=== PATIENT | female | born 1990 | race African-American/Black ===

== ENCOUNTER 2016-04-19 07:29 | Emergency (ER) | payer SELFPAY ==
--- NOTE | 2016-04-19 09:14 | ER Document Report ---
ED General - General Chief Complaint: Cough Stated Complaint: WEAKNESS Mode of Arrival: Ambulatory Information source: Patient Notes: 25-year-old female presents with complaints of body aches and fevers. Patient notes symptoms have been ongoing now for 2 days. Patient denies any nausea vomiting notes multiple coworkers have flu TRAVEL OUTSIDE OF THE [place] IN LAST 30 DAYS: No - HPI Onset: Other - 2-3 day duration Onset/Duration: Persistent Quality of pain: Achy Severity: Mild Pain Level: 1 Associated symptoms: Body/muscle aches, Nonproductive cough, Fever Exacerbated by: Denies Relieved by: Denies Similar symptoms previously: No Recently seen / treated by doctor: No - Related Data Allergies/Adverse Reactions: pineapple [Pineapple] Allergy (Verified 04/19/16 07:36) Past Medical History - Social History Smoking Status: Never Smoker Cigarette use (# per day): No Chew tobacco use (# tins/day): No Smoking Education Provided: No Frequency of alcohol use: None Drug Abuse: None Family History: Reviewed & Not Pertinent Patient has suicidal ideation: No Patient has homicidal ideation: No Pulmonary Medical History: Reports: Hx Bronchitis Neurological Medical History: Reports: Hx Migraine Renal/ Medical History: Denies: Hx Peritoneal Dialysis Psychiatric Medical History: Reports: Hx Depression - Immunizations Hx Diphtheria, Pertussis, Tetanus Vaccination: Yes Review of Systems - Review of Systems Notes: REVIEW OF SYSTEMS: CONSTITUTIONAL : Admits to fevers EENT: Denies eye, ear, throat, or mouth pain or symptoms. Denies nasal or sinus congestion or discharge. Denies throat, tongue, or mouth swelling or difficulty swallowing. CARDIOVASCULAR: Denies chest pain. Denies palpitations or racing or irregular heart beat. Denies ankle edema. RESPIRATORY: Denies cough, cold, or chest congestion. Denies shortness of breath, difficulty breathing, or wheezing. GASTROINTESTINAL: Denies abdominal pain or distention. Denies nausea, vomiting , or diarrhea. Denies blood in vomitus, stools, or per rectum. Denies black, tarry stools. Denies constipation. GENITOURINARY: Denies difficulty urinating, painful urination, burning, frequency, blood in urine, or discharge. FEMALE GENITOURINARY: Denies vaginal bleeding, heavy or abnormal periods, irregular periods. Denies vaginal discharge or odor. MUSCULOSKELETAL: Admits to body aches SKIN: Denies rash, lesions or sores. HEMATOLOGIC : Denies easy bruising or bleeding. LYMPHATIC: Denies swollen, enlarged glands. NEUROLOGICAL: Denies confusion or altered mental status. Denies passing out or loss of consciousness. Denies dizziness or lightheadedness. Denies headache. Denies weakness or paralysis or loss of use of either side. Denies problems with gait or speech. Denies sensory loss, numbness, or tingling. Denies seizures. PSYCHIATRIC: Denies anxiety or stress. Denies depression, suicidal ideation, or homicidal ideation. ALL OTHER SYSTEMS REVIEWED AND NEGATIVE. Dictation was performed using itzat voice recognition software PHYSICAL EXAMINATION: GENERAL: Well-appearing, well-nourished and in no acute distress. HEAD: Atraumatic, normocephalic. EYES: Pupils equal round and reactive to light, extraocular movements intact, conjunctiva are normal. ENT: Nares patent, oropharynx clear without exudates. Moist mucous membranes. NECK: Normal range of motion, supple without lymphadenopathy LUNGS: Breath sounds clear to auscultation bilaterally and equal. No wheezes rales or rhonchi. HEART: Regular rate and rhythm without murmurs ABDOMEN: Soft, nontender, nondistended abdomen. No guarding, no rebound. No masses appreciated. Female : deferred Musculoskeletal: Normal range of motion, no pitting or edema. No cyanosis. NEUROLOGICAL: Cranial nerves grossly intact. Normal speech, normal gait. Normal sensory, motor exams PSYCH: Normal mood, normal affect. SKIN: Warm, Dry, normal turgor, no rashes or lesions noted. Physical Exam - Vital signs Vitals: Temp Pulse Resp BP Pulse Ox 98.0 F 75 18 105/66 98 04/19/16 07:33 04/19/16 07:33 04/19/16 07:33 04/19/16 07:33 04/19/16 07:33 Course - Re-evaluation Re-evalutation: 04/19/16 09:16 Physical examination notes no significant abnormality, patient's otherwise stable at this time. Lab work pending 04/19/16 09:48 Influenza was negative, patient has viral syndromes otherwise stable for discharge After performing a Medical Screening Examination, I estimate there is LOW risk for ACUTE CORONARY SYNDROME, RESPIRATORY FAILURE, SEPSIS OR MENINGITIS, thus I consider the discharge disposition reasonable. The patient and I have discussed the diagnosis and risks, and we agree with discharging home with close follow- up. We also discussed returning to the Emergency Department immediately if new or worsening symptoms occur. We have discussed the symptoms which are most concerning (e.g., changing or worsening pain, trouble swallowing or breathing, neck stiffness, fever) that necessitate immediate return. - Vital Signs Vital signs: Temp Pulse Resp BP Pulse Ox 98.0 F 75 18 105/66 98 04/19/16 07:33 04/19/16 07:33 04/19/16 07:33 04/19/16 07:33 04/19/16 07:33 Discharge - Discharge Clinical Impression: Viral upper respiratory infection, Body aches Condition: Stable Disposition: HOME, SELF-CARE Instructions: Upper Respiratory Illness ([facility]) Additional Instructions: Follow up with your physician tomorrow for further care or return to the ED IMMEDIATELY if symptoms worsen or new concerns occur Forms: Return to Work
[2016-04-19 10:21] VITALS: BP 106/65
== END 2016-04-19 10:20 | disposition home or self-care (01) ==
LOC: ER 07:29
DX: J06.9 Acute upper respiratory infection, unspecified (principal); B97.89 Other viral agents as the cause of diseases classified elsewhere; M79.1 Myalgia; R53.1 Weakness; R50.9 Fever, unspecified
CPT/HCPCS: 87804; 99283

== ENCOUNTER 2016-05-14 20:24 | Emergency (ER) | payer SELFPAY ==
[2016-05-14] MEDS ORDERED: IBUPROFEN 600 MG TABLET PO ONE (21:29)
--- NOTE | 2016-05-14 21:29 | ER Document Report ---
ED Medical Screen (RME) - General Chief Complaint: Ankle Injury Stated Complaint: LEFT ANKLE PAIN Time seen by provider: 21:27 Mode of Arrival: Ambulatory Information source: Patient Notes: 25-year-old female presents to ED for left ankle pain since yesterday. She states it keeps popping worse when she walks. States she almost fell off the porch on Friday. Last menstrual period 04/22/2016 I have greeted and performed a rapid initial assessment of this patient. A comprehensive ED assessment and evaluation of the patient, analysis of test results and completion of medical decision making process will be conducted by an additional ED providers. TRAVEL OUTSIDE OF THE [place] IN LAST 30 DAYS: No - Related Data Allergies/Adverse Reactions: pineapple [Pineapple] Allergy (Verified 04/19/16 07:36) Past Medical History - Social History Family history: None Pulmonary Medical History: Reports: Hx Bronchitis Neurological Medical History: Reports: Hx Migraine Renal/ Medical History: Denies: Hx Peritoneal Dialysis Psychiatric Medical History: Reports: Hx Depression - Immunizations Hx Diphtheria, Pertussis, Tetanus Vaccination: Yes
--- NOTE | 2016-05-15 02:15 | ER Document Report ---
ED Extremity Problem, Lower - General Chief Complaint: Ankle Injury Stated Complaint: LEFT ANKLE PAIN Mode of Arrival: Ambulatory Information source: Patient Notes: 25 y/o F presents to ED c/o L ankle pain. Pt reports twisted her ankle 3 days ago during mechanical trip and fall down the last 2 steps of stairs. Reports did not have obvious injury intitally after fall but over the last 2 days has had persistent pain worse with movement and ambulation and states feels popping sensation when ambulating. Denies numbness, tingling, or color changes. Denies striking head or loc during fall. TRAVEL OUTSIDE OF THE [place] IN LAST 30 DAYS: No - HPI Patient complains to provider of: Pain Location: Ankle Onset/Duration: Gradual Quality of pain: Achy Severity: Moderate Pain Level: 3 Context: Fell, Twisted Recent injury: Possibly Associated symptoms: Painful ambulation Exacerbated by: Movement, Walking Relieved by: Elevation, Rest - Related Data Allergies/Adverse Reactions: pineapple [Pineapple] Allergy (Verified 04/19/16 07:36) Past Medical History - General Information source: Patient - Social History Smoking Status: Never Smoker Frequency of alcohol use: None Drug Abuse: None Lives with: Family Family History: Reviewed & Not Pertinent Pulmonary Medical History: Reports: Hx Bronchitis Neurological Medical History: Reports: Hx Migraine Renal/ Medical History: Denies: Hx Peritoneal Dialysis Psychiatric Medical History: Reports: Hx Depression Surgical Hx: Negative - Immunizations Hx Diphtheria, Pertussis, Tetanus Vaccination: Yes Review of Systems - Review of Systems Constitutional: No symptoms reported EENT: No symptoms reported Cardiovascular: No symptoms reported Respiratory: No symptoms reported Gastrointestinal: No symptoms reported Genitourinary: No symptoms reported Female Genitourinary: No symptoms reported Musculoskeletal: See HPI Skin: No symptoms reported Hematologic/Lymphatic: No symptoms reported Neurological/Psychological: No symptoms reported -: Yes All other systems reviewed and negative Physical Exam - Vital signs Vitals: Temp Pulse Resp BP Pulse Ox 98.2 F 78 15 119/73 99 05/15/16 02:28 05/15/16 02:28 05/15/16 02:28 05/15/16 02:28 05/15/16 02:28 - General General appearance: Appears well, Alert In distress: None - Respiratory Respiratory status: No respiratory distress Chest status: Nontender Breath sounds: Normal Chest palpation: Normal - Cardiovascular Rhythm: Regular Heart sounds: Normal auscultation Murmur: No Pulses: Normal: Radial, Posterior tibial, Dorsalis pedis Normal capillary refill: Yes - Back Back: Normal, Nontender - Extremities General upper extremity: Normal inspection, Nontender, Normal color, Normal ROM , Normal strength, Normal temperature. No: Tender, Edema General lower extremity: Normal inspection, Nontender, Normal color, Normal ROM , Normal strength, Normal temperature, Normal weight bearing. No: Tender, Edema , Benjamin's sign Hip: Normal, Nontender Thigh: Normal, Nontender Knee: Normal, Nontender Calf: Normal, Nontender Ankle: Tender - Mild tenderness with palpation to anterior and medial aspect of left ankle. Full but painful active, passive, and against resistance range of motion. Motor and neurovascular function intact with immediate capillary refill , palpable pedal pulses, and intact sensation.. No: Normal, Nontender, Abrasion , Deformity, Ecchymosis, Edema, Instability, Laceration, Limited ROM, Positive St's test, Unable to bear weight, Other Foot: Normal, Nontender - Neurological Neuro grossly intact: Yes Cognition: Normal Orientation: AAOx4 Bowers Coma Scale Eye Opening: Spontaneous Bowers Coma Scale Verbal: Oriented Bowers Coma Scale Motor: Obeys Commands Bowers Coma Scale Total: 15 Speech: Normal Motor strength normal: LUE, RUE, LLE, RLE Sensory: Normal - Skin Skin Temperature: Warm Skin Moisture: Dry Skin Color: Normal Course - Re-evaluation Re-evalutation: 05/15/16 02:21 Patient hemodynamically stable, in no distress. X-rays negative for osseous injury. Ankle stirrup splint placed. Patient appears stable for discharge and agrees with home care, follow-up with PCP, and ED return precautions. - Vital Signs Vital signs: Temp Pulse Resp BP Pulse Ox 98.2 F 78 15 119/73 99 05/15/16 02:28 05/15/16 02:28 05/15/16 02:28 05/15/16 02:28 05/15/16 02:28 - Diagnostic Test Radiology reviewed: Image reviewed, Reports reviewed Procedures - Immobilization Left Ankle Time completed: 02:22 Pre-Proc Neuro Vasc Exam: Normal Immobilizer type: Ankle stirrup Performed by: RN, PCT Post-Proc Neuro Vasc Exam: Normal Alignment checked and good: Yes Discharge - Discharge Clinical Impression: Left ankle sprain Qualifiers: Encounter type: initial encounter Involved ligament of ankle: unspecified ligament Qualified Code(s): S93.402A - Sprain of unspecified ligament of left ankle, initial encounter Condition: Stable Disposition: HOME, SELF-CARE Additional Instructions: SPRAINED ANKLE: Your sprained ankle results from stretching or tearing of the ligaments which support the ankle. This usually results from twisting the foot inward and under. The ligaments will require time and protection in order to heal properly. Many ankle sprains are quite disabling, and should be taken seriously. The usual treatment for an ankle sprain is cold packs; protection with tape , splints, or wraps; elevation; and staying off the ankle for at least a day. As the ankle improves, you can walk IF it's not painful to bear weight. Sports are best postponed until healing is complete. More serious sprains usually require strengthening exercises after early healing. Your physician has assessed the seriousness of the ligament injury to your ankle. However, the treatment may change, depending on how your ankle progresses. If further exams were recommended, it is important that you follow through. Call the doctor if your foot becomes numb, painful, or severely swollen. ANKLE STIRRUP SPLINT: You are to use an ankle brace called a stirrup splint. This type of brace allows you to place greater stresses on the ankle without risk of re-injury, and is often used for more severe ankle injuries such as avulsion fractures and ligament ruptures. The splint can be worn over a sock or tape. For proper support, wear the splint with a shoe over it. It's important that the splint fit properly. Adjust the heel tension, if needed. If your splint has air bladders, peel back the bottom of each air bladder, then move the Velcro attachment of the heel strap up or down. Air bladder pressure can be adjusted by pulling up the valve at the top, threading the air tube down into the main bladder, then blowing air into the bladder or squeezing it out. The two sides of the stirrup can be moved forward or back on your ankle by changing the attachment of the main straps. If you are unable to use the ankle comfortably in the splint, return for re -evaluation. ICE & ELEVATION: Apply ice packs frequently against the painful area. Many different schedules are recommended, such as "20 minutes on, 20 minutes off" or "one hour ice, two hours rest." If you need to work, you may need to go longer between ice treatments. You should plan to have the area ice packed AT LEAST one- fourth of the time. The ice should be applied over the wrap, tape, or splint, or over a layer of cloth -- not directly against the skin. Some ice bags have a built-in cloth and can be put directly on the skin. Your injured part should be elevated as much as possible over the next 48 hours. Try to keep the injury above the level of the heart. Avoid use of the injured area. Elevation and rest will decrease the swelling. Anti-Inflammatory Medication You have received a prescription for an antiinflammatory agent. This is an excellent, safe drug for pain control. In addition, it has potent antiinflammatory effects which are beneficial, especially in the treatment of injuries, arthritis, or tendonitis. It's best to take this medicine with food. Persons with ulcer disease or allergy to aspirin should notify their physician of this before taking this drug. Take the medication exactly as prescribed. Don't take additional doses unless instructed to do so by your doctor. If you develop wheezing, shortness of breath, hives, faintness, stomach pain, vomiting, or dark black stools, return for re-evaluation at once. FOLLOW-UP CARE: Follow-up with your primary care provider this week. Return to the emergency department for any worsening symptoms or concerns. Prescriptions: Naproxen 500 mg PO BIDP PRN #10 tablet PRN Reason: Forms: Return to Work
[2016-05-15 02:29] VITALS: BP 119/73
== END 2016-05-15 02:29 | disposition home or self-care (01) ==
LOC: ER 20:24
PROC: 2W3FX1Z Immobilization of Left Hand using Splint (ICD-10-PCS; principal; 2016-05-14)
DX: S93.402A Sprain of unspecified ligament of left ankle, initial encounter (principal); M25.572 Pain in left ankle and joints of left foot; X50.1XXA Overexertion from prolonged static or awkward postures, initial encounter
CPT/HCPCS: 99283; 73610; 29515; L1902

== ENCOUNTER 2016-05-19 19:35 | Emergency (ER) | payer SELFPAY ==
[2016-05-19 20:05] VITALS: BP 122/67
--- NOTE | 2016-05-19 21:12 | ER Document Report ---
HPI - HPI Patient complains to provider of: ankle pain Pain Level: 3 Context: Patient is a 25-year-old female presents emergency Department complaining of ankle pain. She was evaluated here on May 14 and diagnosed with a left ankle sprain sent home with ankle brace as well as encourage for Rice management. Patient states that she's been on her feet constantly for work and Motrin is not managing her pain well enough when she is at work. Otherwise she denies any worsening swelling or bruising. She is able to bear weight and gait with a limp. ROS also positive for nausea. Patient states that her last menstrual period was at the end of March. - REPRODUCTIVE LMP: 04/22/16 Reproductive: DENIES: : - DERM Skin Color: Normal, [place] Past Medical History - Social History Smoking Status: Unknown if Ever Smoked Family History: Reviewed & Not Pertinent Patient has suicidal ideation: No Patient has homicidal ideation: No Pulmonary Medical History: Reports: Hx Bronchitis Neurological Medical History: Reports: Hx Migraine Renal/ Medical History: Denies: Hx Peritoneal Dialysis Psychiatric Medical History: Reports: Hx Depression - Immunizations Hx Diphtheria, Pertussis, Tetanus Vaccination: Yes Vertical Provider Document - CONSTITUTIONAL Agree With Documented VS: Yes Exam Limitations: No Limitations General Appearance: WD/WN, No Apparent Distress - INFECTION CONTROL TRAVEL OUTSIDE OF THE [place] IN LAST 30 DAYS: No - RESPIRATORY O2 Sat by Pulse Oximetry: 100 - GI/ABDOMEN Gastrointestinal: Abdomen Soft, Abdomen Non-Tender, No Organomegaly, Normal Bowel Sounds - MUSCULOSKELETAL/EXTREMETIES Musculoskeletal/Extremeties: MAEW, FROM, Tender - Concern for high ankle sprain , No Edema. negative: Eccymosis - NEURO Level of Consciousness: Awake, Alert, Appropriate Motor/Sensory: No Motor Deficit, No Sensory Deficit - DERM Integumentary: Warm, Dry, No Rash Course - Re-evaluation Re-evalutation: 05/19/16 22:10 patient is a 25-year-old female who presents emergency department for reevaluation of her right ankle. We have imaging of the ankle does not reveal any fracture or dislocation. Educated patient that due to the nature of her work that her ankle will take longer to heal. Patient expressed understanding. - Vital Signs Vital signs: Temp Pulse Resp BP Pulse Ox 98.1 F 82 18 122/67 100 05/19/16 20:00 05/19/16 20:00 05/19/16 20:00 05/19/16 20:00 05/19/16 20:00 - Diagnostic Test Radiology reviewed: Image reviewed, Reports reviewed Discharge - Discharge Clinical Impression: Nausea Left ankle sprain Qualifiers: Encounter type: initial encounter Involved ligament of ankle: unspecified ligament Qualified Code(s): S93.402A - Sprain of unspecified ligament of left ankle, initial encounter Condition: Good Disposition: HOME, SELF-CARE Additional Instructions: Continued to use ice, compression and elevation. Please continue taking Motrin as he Then. Only take the tramadol as needed for breakthrough pain. Prescriptions: Ondansetron HCl [Zofran] 4 mg PO Q8HP PRN #10 tablet PRN Reason: Tramadol HCl 50 mg PO Q8HP PRN #10 tablet PRN Reason: Referrals: ELBA BERNSTEIN MD [[facility]AFF] - Follow up as needed MARTHA SHANKAR MD [NO LOCAL MD] - Follow up as needed
[2016-05-19] MEDS ORDERED: IBUPROFEN 800 MG TABLET PO ONE (21:50)
[2016-05-19] MEDS ORDERED: ONDANSETRON 4 MG TAB.RAPDIS PO ONE (21:50)
== END 2016-05-19 22:02 | disposition home or self-care (01) ==
LOC: ER 19:35
DX: S93.402A Sprain of unspecified ligament of left ankle, initial encounter (principal); R11.0 Nausea; M25.572 Pain in left ankle and joints of left foot; X58.XXXA Exposure to other specified factors, initial encounter
CPT/HCPCS: 99283; 81025; 73610; S0119

== ENCOUNTER 2016-06-30 20:08 | Emergency (ER) | payer SELFPAY ==
[2016-06-30] MEDS ORDERED: POLYMYXIN B SULFATE/TMP OPH SOLN 10 ML OD ONE (22:25)
--- NOTE | 2016-06-30 22:27 | ER Document Report ---
ED Eye Complaint - General Chief Complaint: Redness of Eye Stated Complaint: EYE IRRITATION Time Seen by Provider: 06/30/16 22:04 Notes: Patient is a 25-year-old female that comes emergency department for chief complaint of right eye itching and irritation, she states this began yesterday, she states her eye is more red now and she has some discomfort in the eye as well. She reports only clear drainage. She denies injury to the eye but admits she has been rubbing her eye. He does not wear any visual correction. Her significant other has developed the same symptoms. She denies fever, she denies any other symptoms. TRAVEL OUTSIDE OF THE [place] IN LAST 30 DAYS: No - Related Data Allergies/Adverse Reactions: pineapple [Pineapple] Allergy (Verified 05/19/16 20:00) Past Medical History - General Information source: Patient - Social History Smoking Status: Never Smoker Cigarette use (# per day): No Chew tobacco use (# tins/day): No Frequency of alcohol use: None Drug Abuse: None Lives with: Family Family History: Reviewed & Not Pertinent Patient has suicidal ideation: No Patient has homicidal ideation: No Pulmonary Medical History: Reports: Hx Bronchitis Neurological Medical History: Reports: Hx Migraine Renal/ Medical History: Denies: Hx Peritoneal Dialysis Psychiatric Medical History: Reports: Hx Depression Surgical Hx: Negative - Immunizations Hx Diphtheria, Pertussis, Tetanus Vaccination: Yes Review of Systems - Review of Systems Constitutional: No symptoms reported EENT: See HPI Cardiovascular: No symptoms reported Respiratory: No symptoms reported Gastrointestinal: No symptoms reported Genitourinary: No symptoms reported Female Genitourinary: No symptoms reported Musculoskeletal: No symptoms reported Skin: No symptoms reported Hematologic/Lymphatic: No symptoms reported Neurological/Psychological: No symptoms reported Physical Exam - Vital signs Vitals: Temp Pulse Resp BP Pulse Ox 97.7 F 85 16 117/65 100 06/30/16 20:50 06/30/16 20:50 06/30/16 20:50 06/30/16 20:50 06/30/16 20:50 Interpretation: Normal - General General appearance: Appears well In distress: None - HEENT Head: Normocephalic, Atraumatic Eyes: Normal Conjunctiva: Other - Mild injection of the right conjunctiva, no matting of the eyelashes, no swelling of the eyelids, no purulent injection noted, normal pupils, normal EOMs, small pterygium noted bilaterally which does not cover the cornea, exam otherwise unremarkable Cornea: Normal, Other - No uptake. No: Corneal abrasion, Corneal ulcer, Dendrite, Flourescein stain uptake Eyelashes: Normal Pupils: PERRL Corrective lenses worn: No Anterior chamber: Normal. No: Hyphema Ears: Normal Nasal: Normal Mouth/Lips: Normal Mucous membranes: Normal Pharynx: Normal Neck: Normal - Respiratory Respiratory status: No respiratory distress Chest status: Nontender Breath sounds: Normal. No: Decreased air movement, Nonproductive cough, Wheezing Chest palpation: Normal - Cardiovascular Rhythm: Regular. No: Tachycardia Heart sounds: Normal auscultation, S1 appreciated, S2 appreciated Murmur: No - Abdominal Inspection: Normal Distension: No distension Bowel sounds: Normal Tenderness: Nontender. No: Tender Organomegaly: No organomegaly - Back Back: Normal, Nontender. No: Tender - Extremities General upper extremity: Normal inspection, Nontender, Normal ROM, Normal strength General lower extremity: Normal inspection, Nontender, Normal ROM, Normal strength - Neurological Neuro grossly intact: Yes Cognition: Normal Orientation: AAOx4 Adriana Coma Scale Eye Opening: Spontaneous Venus Coma Scale Verbal: Oriented Adriana Coma Scale Motor: Obeys Commands Venus Coma Scale Total: 15 Speech: Normal Motor strength normal: LUE, RUE, LLE, RLE Sensory: Normal - Psychological Associated symptoms: Normal affect, Normal mood - Skin Skin Temperature: Warm Skin Moisture: Dry Skin Color: Normal Course - Re-evaluation Re-evalutation: Examination is consistent with mild conjunctivitis, patient does not have any discolored discharge, the [place] light examination shows no dye uptake or any concerning findings. Incidental finding of pterygium which is also mild. Discussed likely viral infection, patient was given topical antibiotics to use if symptoms do not clear up in the next couple of days, discussed follow-up, discussed return precautions, patient states understanding and agreement. - Vital Signs Vital signs: Temp Pulse Resp BP Pulse Ox 97.6 F 80 18 112/68 99 06/30/16 23:08 06/30/16 23:08 06/30/16 23:08 06/30/16 23:08 06/30/16 23:08 Discharge - Discharge Clinical Impression: Conjunctivitis Qualifiers: Conjunctivitis type: unspecified Laterality: right Qualified Code(s): H10.9 - Unspecified conjunctivitis Condition: Stable Disposition: HOME, SELF-CARE Additional Instructions: Examination is consistent with viral conjunctivitis. This goes away with time but is contagious. Wash hands frequently, try to avoid rubbing the eye with your hands. Use the drop as prescribed in addition to this. Follow-up with primary care. Return to emergency department for any concerning worsening symptoms including swelling of the eye, loss of vision, severe pain, etc. Forms: Return to Work
[2016-06-30] MEDS ORDERED: POLYMYXIN B SULFATE/TMP OPH SOLN 10 ML ONE (22:46)
[2016-06-30 23:09] VITALS: BP 112/68
== END 2016-06-30 23:09 | disposition home or self-care (01) ==
LOC: ER 20:08
DX: H10.9 Unspecified conjunctivitis (principal); H11.003 Unspecified pterygium of eye, bilateral; Z91.018 Allergy to other foods
CPT/HCPCS: 99282; J3490

== ENCOUNTER 2016-07-02 14:29 | Emergency (ER) | payer SELFPAY ==
[2016-07-02 14:36] VITALS: BP 115/68
[2016-07-02] MEDS ORDERED: POLYMYXIN B SULFATE/TMP OPH SOLN 10 ML OD ONE (14:55)
--- NOTE | 2016-07-02 14:57 | ER Document Report ---
HPI - HPI Patient complains to provider of: conjunctivitis Pain Level: 3 Context: patient is a 25 year old female who presents complaining of intermittent tinnitus was diagnosed on Friday. Patient has been taking the drops less than the prescribed amount. She states she came in today for a new work note since she cannot go back to work in her current condition. Otherwise denies any changes in vision, light sensitivity, blurriness, he was. - REPRODUCTIVE LMP: 06/22/16 Reproductive: DENIES: : - DERM Skin Color: Normal Past Medical History - Social History Smoking Status: Unknown if Ever Smoked Family History: Reviewed & Not Pertinent Patient has suicidal ideation: No Patient has homicidal ideation: No Pulmonary Medical History: Reports: Hx Bronchitis Neurological Medical History: Reports: Hx Migraine Renal/ Medical History: Denies: Hx Peritoneal Dialysis Psychiatric Medical History: Reports: Hx Depression - Immunizations Hx Diphtheria, Pertussis, Tetanus Vaccination: Yes Vertical Provider Document - CONSTITUTIONAL Agree With Documented VS: Yes Exam Limitations: No Limitations General Appearance: WD/WN, No Apparent Distress - INFECTION CONTROL TRAVEL OUTSIDE OF THE [place] IN LAST 30 DAYS: No - HEENT HEENT: Atraumatic, Conjuctival Injection, Normal ENT Exam, Normocephalic, PERRLA - NECK Neck: Normal Inspection. negative: Lymphadenopathy-Left, Lymphadenopathy-Right - RESPIRATORY Respiratory: Breath Sounds Normal, No Respiratory Distress, Chest Non-Tender O2 Sat by Pulse Oximetry: 98 - CARDIOVASCULAR Cardiovascular: Regular Rate, Regular Rhythm, No Murmur Course - Re-evaluation Re-evalutation: 07/02/16 17:16 Told patient to continue her polymyxin drops 4 times a day. Follow-up with ophthalmology tomorrow. - Vital Signs Vital signs: Temp Pulse Resp BP Pulse Ox 97.9 F 79 16 115/68 98 07/02/16 14:35 07/02/16 14:35 07/02/16 14:35 07/02/16 14:35 07/02/16 14:35 Discharge - Discharge Clinical Impression: Conjunctivitis Condition: Good Disposition: HOME, SELF-CARE Instructions: Conjunctivitis ([facility]), Eyedrop Use ([facility]) Additional Instructions: Examination is consistent with viral conjunctivitis. This goes away with time but is contagious. Wash hands frequently, try to avoid rubbing the eye with your hands. Use the drop as prescribed in addition to this. Follow-up with primary care. Return to emergency department for any concerning worsening symptoms including swelling of the eye, loss of vision, severe pain, etc. Forms: Return to Work Referrals: NEETU FOFANA MD [ACTIVE STAFF] - Follow up tomorrow
== END 2016-07-02 15:15 | disposition home or self-care (01) ==
LOC: ER 14:29
DX: H10.9 Unspecified conjunctivitis (principal); H93.19 Tinnitus, unspecified ear
CPT/HCPCS: 99282; J3490

== ENCOUNTER 2016-07-08 14:45 | Emergency (ER) | payer SELFPAY ==
--- NOTE | 2016-07-08 16:06 | ER Document Report ---
ED General - General Chief Complaint: Drainage from Eye Stated Complaint: EYE PAIN Time Seen by Provider: 07/08/16 16:05 Mode of Arrival: Ambulatory Information source: Patient Notes: Patient is a 25 year old female who presents with 1 week history of eye redness , green drainage and pain. She states she has been seen here twice for the same but no relief in symptoms. She endorses med compliance with the polytrim drops. She does not wear contacts or eye glasses. She endorses pain with movement of her eye but denies fever, chills, eye lid swelling, changes in vision, blurred vision, headache, dizziness, or FB sensation. She has not seen an eye doctor. TRAVEL OUTSIDE OF THE [place] IN LAST 30 DAYS: No - Related Data Allergies/Adverse Reactions: No Known Drug Allergies Allergy (Verified 07/08/16 15:17) pineapple [Pineapple] Allergy (Verified 07/08/16 15:17) Past Medical History - General Information source: Patient - Social History Smoking Status: Never Smoker Family History: Reviewed & Not Pertinent Patient has suicidal ideation: No Patient has homicidal ideation: No Pulmonary Medical History: Reports: Hx Bronchitis Neurological Medical History: Reports: Hx Migraine Renal/ Medical History: Denies: Hx Peritoneal Dialysis Psychiatric Medical History: Reports: Hx Depression - Immunizations Hx Diphtheria, Pertussis, Tetanus Vaccination: Yes Review of Systems - Review of Systems Constitutional: See HPI EENT: See HPI Cardiovascular: No symptoms reported Respiratory: No symptoms reported Gastrointestinal: No symptoms reported Genitourinary: No symptoms reported Female Genitourinary: No symptoms reported Musculoskeletal: No symptoms reported Skin: No symptoms reported Hematologic/Lymphatic: No symptoms reported Neurological/Psychological: No symptoms reported Physical Exam - Vital signs Vitals: Temp Pulse Resp BP Pulse Ox 98.0 F 77 16 104/66 99 07/08/16 15:16 07/08/16 15:16 07/08/16 15:16 07/08/16 15:16 07/08/16 15:16 - Notes Notes: PHYSICAL EXAM: CONSTITUTIONAL: Alert and oriented, well-appearing and in no acute distress. HENT: Normocephalic, atraumatic. Trachea midline. Uvula midline. Moist mucous membranes. EYES: Pupils equal round and reactive to light, EOM intact. Sclera anicteric, right conjunctiva erythematous. No chemosis. no entrapment. Pterygium of right eye noted. No FB noted. Green drainage noted to medial canthus. NECK: supple without lymphadenopathy. No midline tenderness or paraspinous muscle spasms. No step-offs or deformities. ROM intact. HEART: Regular rate and rhythm without murmurs. LUNGS: CTAB and equal. No wheezes, rales or rhonchi. EXTREMITIES: Normal range of motion, no pitting edema. No cyanosis. Cap Refill < 3 seconds. NEURO: Cranial nerves grossly intact. Normal sensory/motor exams. PSYCH: Normal mood, normal affect. SKIN: Warm and dry. Normal turgor. No rashes or lesions noted. Course - Re-evaluation Re-evalutation: 07/08/16 16:49 Patient seen and examined. Exam consistent with bacterial conjunctivitis, incidental finding of pterygium. EOM intact, no orbital edema or erythema to suggest preseptal or orbital cellulitis. Discussed good hand hygiene to prevent further infection. Will given opth abx ointment and advised follow-up with opthamology. At this time, will discharge with return precautions and follow-up recommendations. Verbal discharge instructions given at the bedside and opportunity for questions given. Medication warnings reviewed. Patient is in agreement with this plan and has verbalized understanding of return precautions and the need for primary care follow-up in the next 24-72 hours. - Vital Signs Vital signs: Temp Pulse Resp BP Pulse Ox 98.0 F 77 16 104/66 99 07/08/16 15:16 07/08/16 15:16 07/08/16 15:16 07/08/16 15:16 07/08/16 15:16 Discharge - Discharge Clinical Impression: Bacterial conjunctivitis of right eye Pterygium Qualifiers: Laterality: right Qualified Code(s): H11.001 - Unspecified pterygium of right eye Condition: Stable Disposition: HOME, SELF-CARE Additional Instructions: Conjunctivitis You have an infection in your eye, commonly known as "pink eye." Conjunctivitis causes redness, mild discomfort, itching, and mattering on the eyelids. It is very contagious, so you must be careful to wash your hands after touching your face so you don't pass the infection on to others. Conjunctivitis is caused by both viruses and bacteria. It usually responds quickly to treatment with antibiotic drops. These should be placed in the eye as prescribed (usually every three to four hours while you're awake). If you wear contact lenses, don't put them in your eyes until the infection is cleared and you are no longer using the drops (unless your doctor advises you otherwise). Should you develop increasing eye pain, severe swelling, decreased vision, or fail to improve as expected, please return for re-examination. Prescriptions: Gentamicin Sulfate 3.5 gm OD Q8H #1 oint...g. Forms: Return to Work Referrals: SELENE MCKEON DO [ACTIVE STAFF] - Follow up tomorrow
[2016-07-08 17:21] VITALS: BP 115/61
== END 2016-07-08 17:22 | disposition home or self-care (01) ==
LOC: ER 14:45
DX: H10.89 Other conjunctivitis (principal); H11.001 Unspecified pterygium of right eye; H57.8 Other specified disorders of eye and adnexa
CPT/HCPCS: 99283

== ENCOUNTER 2016-12-29 09:05 | Emergency (ER) | payer SELFPAY ==
--- NOTE | 2016-12-29 09:19 | ER Document Report ---
HPI - HPI Patient complains to provider of: left thumb pain Onset: Other - several weeks Onset/Duration: Gradual, Persistent, Worse Pain Level: 4 Context: 26 yo right handed female c/o left base of thumb pain that radiates into radial wrist with movement. Worse last night with hand wrapped around the steering wheel. No specificia injury. Associated Symptoms: None Exacerbated by: Movement Relieved by: Denies Similar symptoms previously: No Recently seen / treated by doctor: No - ROS ROS below otherwise negative: Yes Systems Reviewed and Negative: Yes All other systems reviewed and negative - REPRODUCTIVE Reproductive: DENIES: : - DERM Skin Color: Normal Past Medical History - General Information source: Patient - Social History Smoking Status: Never Smoker Frequency of alcohol use: None Drug Abuse: None Lives with: Family Family History: Reviewed & Not Pertinent Patient has suicidal ideation: No Patient has homicidal ideation: No Pulmonary Medical History: Reports: Hx Bronchitis Neurological Medical History: Reports: Hx Migraine Renal/ Medical History: Denies: Hx Peritoneal Dialysis Psychiatric Medical History: Reports: Hx Depression Surgical Hx: Negative - Immunizations Hx Diphtheria, Pertussis, Tetanus Vaccination: Yes Vertical Provider Document - CONSTITUTIONAL Agree With Documented VS: Yes Exam Limitations: No Limitations General Appearance: No Apparent Distress - INFECTION CONTROL TRAVEL OUTSIDE OF THE [place] IN LAST 30 DAYS: No - NECK Neck: Supple - RESPIRATORY O2 Sat by Pulse Oximetry: 100 - MUSCULOSKELETAL/EXTREMETIES Musculoskeletal/Extremeties: MAEW, FROM, Tender - base of left thumb to radial tendon - NEURO Level of Consciousness: Awake, Alert Motor/Sensory: No Motor Deficit, No Sensory Deficit - DERM Integumentary: Warm, Dry Course - Re-evaluation Re-evalutation: 12/29/16 10:28 X-rays negative per rad 12/29/16 10:28 - Vital Signs Vital signs: Temp Pulse Resp BP Pulse Ox 98.3 F 62 12 108/59 L 100 12/29/16 09:10 12/29/16 09:10 12/29/16 09:10 12/29/16 09:10 12/29/16 09:10 Procedures - Immobilization Left Thumb Time completed: 10:25 Pre-Proc Neuro Vasc Exam: Normal Immobilizer type: Thumb spica Performed by: PCT Post-Proc Neuro Vasc Exam: Normal Alignment checked and good: Yes Discharge - Discharge Clinical Impression: left thumb tendonitis Condition: Good Disposition: HOME, SELF-CARE Instructions: Anti-Inflammatory Medication ([facility]), Splint Precautions ([facility]), Temporary Splint ([facility]), Tendonitis ([facility]) Additional Instructions: splint few days to er if worse warm compress tylenol motrin see orthopedic doctor if persists Please complete the patient satisfaction survey if you get one, and return it.. If you do not receive a survey, then you can go to the [facility] website, [email or web address] and place your comments about your very good care. Thank you very much. It was a pleasure being your medical provider today. Prescriptions: Ibuprofen [Motrin 600 mg Tablet] 600 mg PO Q8HP PRN #30 tablet PRN Reason: Forms: Return to Work Referrals: CHRISTINA ZAYAS, [ACTIVE STAFF] - Follow up as needed
[2016-12-29] MEDS ORDERED: IBUPROFEN 600 MG TABLET PO ONE (09:59)
--- NOTE | 2016-12-29 10:05 | RADIOLOGY REPORT (SQ) ---
EXAM DESCRIPTION: HAND LEFT 3 VIEWS COMPLETED DATE/TIME: 12/29/2016 9:56 am REASON FOR STUDY: Thumb pain COMPARISON: None. EXAM PARAMETERS: NUMBER OF VIEWS: Three views. TECHNIQUE: AP, lateral and oblique radiographic images acquired of the left hand. LIMITATIONS: None. FINDINGS: MINERALIZATION: Normal. BONES: No acute fracture or dislocation. No worrisome bone lesions. JOINTS: No effusions. SOFT TISSUES: No soft tissue swelling. No foreign body. OTHER: No other significant finding. IMPRESSION: NEGATIVE STUDY OF THE LEFT HAND. NO RADIOGRAPHIC EVIDENCE OF ACUTE INJURY. TECHNICAL DOCUMENTATION: JOB ID: [id number] [employer]- All Rights Reserved
[2016-12-29 10:52] VITALS: BP 106/60
== END 2016-12-29 10:50 | disposition home or self-care (01) ==
LOC: ER 09:05
DX: M77.9 Enthesopathy, unspecified (principal); M79.645 Pain in left finger(s)
CPT/HCPCS: 99283

== ENCOUNTER 2017-02-13 13:18 | Emergency (ER) | payer SELFPAY ==
--- NOTE | 2017-02-13 14:31 | ER Document Report ---
HPI - HPI Pain Level: 3 Notes: Patient is a 26-year-old female with no significant past medical history who presents to the ED complaining of subjective fever, chills, nasal congestion/ discharge, body ache, dry nonproductive cough 2 days. Patient states that she missed the last 2 days of work and needs a work note. Patient states that she is eating and drinking, but does have decreased p.o. intake. She has not been using any [id number] meds for her symptoms. She is still urinating normally and having normal bowel movements. Patient denies any smoking or IV drug use. No other concerns or complaints at this time. Denies any headache, neck pain, sore throat, chest pain, palpitations, syncope, shortness of breath, wheeze, dyspnea, abdominal pain, nausea/vomiting/diarrhea, urinary retention, dysuria, hematuria, loss of control of bowel or bladder, numbness/tingling, or rash. - ROS Notes: REVIEW OF SYSTEMS: CONSTITUTIONAL : see hpi EENT: see hpi CARDIOVASCULAR: Denies chest pain. Denies palpitations or racing or irregular heart beat. Denies ankle edema. RESPIRATORY: see hpi. Denies shortness of breath, difficulty breathing, or wheezing. GASTROINTESTINAL: Denies abdominal pain or distention. Denies nausea, vomiting , or diarrhea. Denies blood in vomitus, stools, or per rectum. Denies black, tarry stools. Denies constipation. GENITOURINARY: Denies difficulty urinating, painful urination, burning, frequency, blood in urine, or discharge. MUSCULOSKELETAL: Denies back or neck pain or stiffness. Denies joint pain or swelling. SKIN: Denies rash, lesions or sores. NEUROLOGICAL: Denies confusion or altered mental status. Denies passing out or loss of consciousness. Denies dizziness or lightheadedness. Denies headache. Denies weakness or paralysis or loss of use of either side. Denies problems with gait or speech. Denies sensory loss, numbness, or tingling. Denies seizures. PSYCHIATRIC: Denies anxiety or stress. Denies depression, suicidal ideation, or homicidal ideation. ALL OTHER SYSTEMS REVIEWED AND NEGATIVE. Dictation was performed using [employer] voice recognition software - CONSTITUTIONAL Constitutional: REPORTS: Chills. DENIES: Fever - EENT EENT: DENIES: Sore Throat, Ear Pain, Eye problems - CARDIOVASCULAR Cardiovascular: DENIES: Chest pain - RESPIRATORY Respiratory: REPORTS: Coughing - non-productive. DENIES: Trouble Breathing - GASTROINTESTINAL Gastrointestinal: DENIES: Abdominal Pain - REPRODUCTIVE Reproductive: DENIES: : Past Medical History - Social History Smoking Status: Never Smoker Chew tobacco use (# tins/day): No Frequency of alcohol use: None Drug Abuse: None Family History: Reviewed & Not Pertinent Patient has suicidal ideation: No Patient has homicidal ideation: No Pulmonary Medical History: Reports: Hx Bronchitis Neurological Medical History: Reports: Hx Migraine Renal/ Medical History: Denies: Hx Peritoneal Dialysis Psychiatric Medical History: Reports: Hx Depression - Immunizations Hx Diphtheria, Pertussis, Tetanus Vaccination: Yes Vertical Provider Document - CONSTITUTIONAL Agree With Documented VS: Yes Notes: PHYSICAL EXAMINATION: GENERAL: Well-appearing, well-nourished and in no acute distress. A&Ox4 HEAD: Atraumatic, normocephalic. EYES: Pupils equal round and reactive to light, extraocular movements intact, sclera anicteric, conjunctiva are normal. ENT: EAC clear b/l. TM's intact b/l without erythema, fluid, or perforation. Nares patent and with clear discharge. oropharynx clear w/o exudate. 1+ tonsilar hypertrophy without erythema or exudate. No palatine shift. Uvula midline. No tongue protrusion. No drooling, hoarseness, or airway compromise. Moist mucous membranes. No sinus tenderness. NECK: Normal range of motion, supple without lymphadenopathy. No rigidity/ meningismus. LUNGS: Breath sounds clear to auscultation bilaterally and equal. No wheezes rales or rhonchi. HEART: Regular rate and rhythm without murmurs, rubs, gallops. ABDOMEN: Soft, nontender, nondistended abdomen. No guarding, no rebound. No masses appreciated. Normal bowel sounds present. No CVA tenderness bilaterally. No hepatosplenomegaly. NEUROLOGICAL: Normal speech, normal gait. Normal sensory, motor exams PSYCH: Normal mood, normal affect. SKIN: Warm, Dry, normal turgor, no rashes or lesions noted. - INFECTION CONTROL TRAVEL OUTSIDE OF THE [place] IN LAST 30 DAYS: No Course - Re-evaluation Re-evalutation: 02/13/17 14:28 Patient is an afebrile, well-hydrated, 26-year-old female who presents to the ED with acute URI, suspect probable influenza or other virus. Vitals are stable. PE is otherwise unremarkable. Patient is tolerating p.o. without difficulty. Patient declined influenza testing. Low suspicion for any ACS, PE , pneumothorax, pericarditis, dissection, respiratory compromise, severe dehydration, sepsis, meningitis, or other systemic emergent condition at this time. Patient is aware that her condition can change from initial presentation and she needs to monitor symptoms closely and seek medical attention for any acute changes. Recommend conservative measures for symptoms. Recheck with your PCM in 3-5 days. Return to the ED with any worsening/concerning symptoms otherwise as reviewed in discharge. Patient is in agreement. Work note provided. Discharge - Discharge Clinical Impression: Acute URI Condition: Stable Disposition: HOME, SELF-CARE Instructions: Upper Respiratory Illness ([facility]), Influenza ([facility]) Additional Instructions: Maintain adequate fluid intake tylenol/ibuprofen as needed over the counter cold medication as needed for symptoms Humidified air may help Monitor symptoms closely F/u: with your PCM in 3-5 days for a recheck Return to the ED with any fever, worsening pain, chest pain, palpitations, syncope, worsening JONES, neck pain/stiffness, shortness of breath, wheezing, drooling, trouble swallowing/breathing, abdominal pain, n/v/d, rash, or worsening/concerning symptoms otherwise. Forms: Return to Work Referrals: [facility] [Provider Group] - Follow up as needed [facility] [Provider Group] - Follow up as needed
== END 2017-02-13 14:25 | disposition home or self-care (01) ==
LOC: ER 13:18
DX: J06.9 Acute upper respiratory infection, unspecified (principal); R50.9 Fever, unspecified; R09.81 Nasal congestion; R09.89 Other specified symptoms and signs involving the circulatory and respiratory systems; R05 Cough
CPT/HCPCS: 99283

== ENCOUNTER 2017-03-04 06:41 | Emergency (ER) | payer SELFPAY ==
[2017-03-04 06:52] VITALS: BP 112/56
--- NOTE | 2017-03-04 07:14 | ER Document Report ---
HPI - HPI Patient complains to provider of: right neck pain Onset: Other - 2 days ago when woke up Quality of pain: Achy, Cramping Pain Level: 4 Context: 26 yo female c/o right neck pain when she woke up 2 days ago. Hurts to turn it. No fever. No headache. No radiculopathy. Associated Symptoms: None Exacerbated by: Movement Relieved by: Denies Similar symptoms previously: No Recently seen / treated by doctor: No - ROS ROS below otherwise negative: Yes Systems Reviewed and Negative: Yes All other systems reviewed and negative - REPRODUCTIVE Reproductive: DENIES: : Past Medical History - General Information source: Patient Last Menstrual Period: 02-07-17 - Social History Smoking Status: Never Smoker Frequency of alcohol use: None Drug Abuse: None Lives with: Family Family History: Reviewed & Not Pertinent Pulmonary Medical History: Reports: Hx Bronchitis Neurological Medical History: Reports: Hx Migraine Renal/ Medical History: Denies: Hx Peritoneal Dialysis Psychiatric Medical History: Reports: Hx Depression Surgical Hx: Negative - Immunizations Hx Diphtheria, Pertussis, Tetanus Vaccination: Yes Vertical Provider Document - CONSTITUTIONAL Agree With Documented VS: Yes Exam Limitations: No Limitations General Appearance: No Apparent Distress - INFECTION CONTROL TRAVEL OUTSIDE OF THE [place] IN LAST 30 DAYS: No - HEENT HEENT: Normal ENT Exam, Normocephalic - NECK Neck: negative: Lymphadenopathy-Left, Lymphadenopathy-Right Notes: tender and tense with trapezius muscle, able to move head but it increases her pain - RESPIRATORY Respiratory: Breath Sounds Normal, No Respiratory Distress O2 Sat by Pulse Oximetry: 99 - CARDIOVASCULAR Cardiovascular: Regular Rate, Regular Rhythm - MUSCULOSKELETAL/EXTREMETIES Musculoskeletal/Extremeties: MAEW, FROM, Tender - see above - NEURO Level of Consciousness: Awake, Alert Motor/Sensory: No Motor Deficit, No Sensory Deficit - DERM Integumentary: Warm, Dry, No Rash Course - Vital Signs Vital signs: Temp Pulse Resp BP Pulse Ox 97.7 F 72 20 112/56 L 99 03/04/17 06:51 03/04/17 06:51 03/04/17 06:51 03/04/17 06:51 03/04/17 06:51 Discharge - Discharge Clinical Impression: Right torticollis Condition: Good Disposition: HOME, SELF-CARE Instructions: Acetaminophen, Anti-Inflammatory Medication ([facility]), Muscle Relaxers ([facility]), Myalagia (Muscle Pain) ([facility]), Torticollis ([facility]), Warm Packs ([facility] ) Additional Instructions: warm compress gentle range of motion return to er if worsening of the symptoms Prescriptions: Ibuprofen [Motrin 800 mg Tablet] 800 mg PO Q8HP PRN #30 tablet PRN Reason: Cyclobenzaprine HCl [Flexeril 10 Mg Tablet] 10 mg PO TIDP PRN #20 tablet PRN Reason: Forms: Return to Work
[2017-03-04] MEDS ORDERED: IBUPROFEN 800 MG TABLET PO ONE (08:05)
[2017-03-04] MEDS ORDERED: ACETAMINOPHEN 325 MG TABLET PO ONE (08:05)
== END 2017-03-04 08:17 | disposition home or self-care (01) ==
LOC: ER 06:41
DX: M43.6 Torticollis (principal); M54.2 Cervicalgia
CPT/HCPCS: 99283

== ENCOUNTER 2017-04-14 11:05 | Emergency (ER) | payer SELFPAY ==
--- NOTE | 2017-04-14 11:39 | ER Document Report ---
ED Medical Screen (RME) - General Chief Complaint: Chest Tightness Stated Complaint: CHEST CONGESTION Time Seen by Provider: 04/14/17 11:37 Notes: chest pressure/sob. no uri sx's TRAVEL OUTSIDE OF THE [place] IN LAST 30 DAYS: No - Related Data Allergies/Adverse Reactions: pineapple [Pineapple] Allergy (Verified 04/14/17 11:16) Past Medical History - Social History Frequency of alcohol use: None Drug Abuse: None Family history: None Pulmonary Medical History: Reports: Hx Bronchitis Neurological Medical History: Reports: Hx Migraine Renal/ Medical History: Denies: Hx Peritoneal Dialysis Psychiatric Medical History: Reports: Hx Depression - Immunizations Hx Diphtheria, Pertussis, Tetanus Vaccination: Yes Physical Exam - Vital signs Vitals: Temp Pulse Resp BP Pulse Ox 98.0 F 82 17 119/66 99 04/14/17 11:08 04/14/17 11:08 04/14/17 11:08 04/14/17 11:08 04/14/17 11:08 Course - Vital Signs Vital signs: Temp Pulse Resp BP Pulse Ox 98.0 F 82 17 119/66 99 04/14/17 11:08 04/14/17 11:08 04/14/17 11:08 04/14/17 11:08 04/14/17 11:08
[2017-04-14 12:03] LABS: ABSOLUTE LYMPHOCYTES (AUTO) 1.5 10^3/uL (0.5-4.7); ABSOLUTE MONOCYTES (AUTO) 0.3 10^3/uL (0.1-1.4); ABSOLUTE NEUT (AUTO) 1.2 10^3/uL (1.7-8.2); BASOPHILS % (AUTO) 0.2 % (0-2); EOSINOPHILS % (AUTO) 1.5 % (0-6); HEMATOCRIT 34.6 % (36.0-47.0); HEMOGLOBIN 11.2 g/dL (12.0-15.5); LYMPHOCYTES % (AUTO) 49.6 % (13-45); MEAN CORPUSCULAR HEMOGLOBIN 26.8 pg (27.0-33.4); MEAN CORPUSCULAR HGB CONC 32.5 g/dL (32.0-36.0); MEAN CORPUSCULAR VOLUME 83 fl (80-97); MONOCYTES % (AUTO) 9.8 % (3-13); PLATELET COUNT 166 10^3/uL (150-450); RED BLOOD COUNT 4.19 10^6/uL (3.72-5.28); RED CELL DISTRIBUTION WIDTH 13.9 % (11.5-14.0); SEGMENTED NEUTROPHILS % (AUTO) 38.9 % (42-78); TOTAL CELLS COUNTED % (AUTO) 100 %
[2017-04-14 12:25] LABS: ALANINE AMINOTRANSFERASE 23 U/L (9-52); ALBUMIN 4.2 g/dL (3.5-5.0); ALKALINE PHOSPHATASE 33 U/L (38-126); ANION GAP 13 (5-19); ASPARTATE AMINO TRANSFERASE 18 U/L (14-36); BILIRUBIN,DIRECT 0.2 mg/dL (0.0-0.4); BILIRUBIN,TOTAL 0.2 mg/dL (0.2-1.3); BLOOD UREA NITROGEN 10 mg/dL (7-20); CALCIUM 9.1 mg/dL (8.4-10.2); CARBON DIOXIDE 26 mmol/L (22-30); CHLORIDE 101 mmol/L (98-107); GLUCOSE 76 mg/dL (75-110); POTASSIUM 3.9 mmol/L (3.6-5.0); SODIUM 140.1 mmol/L (137-145); TOTAL PROTEIN 7.9 g/dL (6.3-8.2)
--- NOTE | 2017-04-14 12:25 | RADIOLOGY REPORT (SQ) ---
EXAM DESCRIPTION: CHEST PA/LAT COMPLETED DATE/TIME: 04/14/2017 12:05 pm REASON FOR STUDY: chest pressure COMPARISON: 08/30/2014 EXAM PARAMETERS: NUMBER OF VIEWS: two views TECHNIQUE: Digital Frontal and Lateral radiographic views of the chest acquired. RADIATION DOSE: NA LIMITATIONS: none FINDINGS: LUNGS AND PLEURA: No opacities, masses or pneumothorax. No pleural effusion. MEDIASTINUM AND HILAR STRUCTURES: No masses or contour abnormalities. HEART AND VASCULAR STRUCTURES: Heart normal size. No evidence for failure. BONES: No acute findings. HARDWARE: None in the chest. OTHER: No other significant finding. IMPRESSION: NO SIGNIFICANT RADIOGRAPHIC FINDING IN THE CHEST. TECHNICAL DOCUMENTATION: JOB ID: [id number] [employer]- All Rights Reserved Reading location - IP/workstation name: [email or web address]
[2017-04-14] MEDS ORDERED: KETOROLAC TROMETHAMINE 60 MG/2 ML SDV IM ONE (12:54)
--- NOTE | 2017-04-14 12:58 | ER Document Report ---
ED General - General Chief Complaint: Chest Tightness Stated Complaint: CHEST CONGESTION Time Seen by Provider: 04/14/17 11:37 Mode of Arrival: Ambulatory Information source: Patient Notes: 26 years old female who was lifting her knees last few days presents today with pain over the left chest wall since Friday. Each time she moves pain increases in intensity pain start at the medial border of the scapula and run along the dermatomal pattern to the sternum. Movement make it worse. Denies any difficulty in breathing. Denies any fever chills cough or other constitutional symptoms. TRAVEL OUTSIDE OF THE [place] IN LAST 30 DAYS: No - Related Data Allergies/Adverse Reactions: pineapple [Pineapple] Allergy (Verified 04/14/17 11:16) Past Medical History - Social History Smoking Status: Never Smoker Cigarette use (# per day): No Chew tobacco use (# tins/day): No Smoking Education Provided: No Frequency of alcohol use: None Drug Abuse: None Family History: Reviewed & Not Pertinent Patient has suicidal ideation: No Patient has homicidal ideation: No Pulmonary Medical History: Reports: Hx Bronchitis Neurological Medical History: Reports: Hx Migraine Renal/ Medical History: Denies: Hx Peritoneal Dialysis Psychiatric Medical History: Reports: Hx Depression - Immunizations Hx Diphtheria, Pertussis, Tetanus Vaccination: Yes Review of Systems - Review of Systems Constitutional: denies: No symptoms reported, See HPI, Chills, Diaphoresis, Fever, Malaise, Weakness, Other, Weight gain, Weight loss, Recent illness EENT: denies: No symptoms reported, See HPI, Eye pain, Eye discharge, Blurred vision, Tearing, Double vision, Ear pain, Ear discharge, Nose pain, Nose congestion, Nose discharge, Sinus pressure, Sinus discharge, Throat pain, Difficulty swallowing, Throat swelling, Mouth pain, Mouth swelling, Dental problem, Vertigo, Other Cardiovascular: Chest pain. denies: No symptoms reported, See HPI, Palpitations , Heart racing, Orthopnea, Dyspnea, Syncope, Dizziness, Lightheaded, Edema, Other, Paroxysmal Nocturnal Dysp Respiratory: denies: No symptoms reported, See HPI, Cough, Hurts to breathe, Hemoptysis, Short of breath, Sputum, Stridor, Wheezing, Other Gastrointestinal: denies: No symptoms reported, See HPI, Abdomen distended, Abdominal pain, Diarrhea, Nausea, Vomiting, Constipation, Blood streaked bowels , Poor appetite, Poor fluid intake, Blood in vomit, Black stools, Rectal bleeding, Last bowel movement, Fecal incontinence, Other Genitourinary: denies: No symptoms reported, See HPI, Burning, Dysuria, Discharge, Frequency, Flank pain, Hematuria, Incontinence, Pain, Urgency, Retention, Other Female Genitourinary: denies: No symptoms reported, See HPI, Last menstrual period, , Post menopausal, Heavy/abnormal periods, Irregular period, Vaginal bleeding, Vaginal discharge, Vaginal odor, Painful intercourse, Other Musculoskeletal: denies: No symptoms reported, See HPI, Back pain, Gout, Joint pain, Joint swelling, Muscle pain, Muscle stiffness, Neck pain, Deformity, Leg swelling, Ankle swelling, Other Skin: denies: No symptoms reported, See HPI, Change in color, Change in hair/ nails, Dryness, Lesions, Lumps, Rash, Other Hematologic/Lymphatic: denies: No symptoms reported, See HPI, Anemia, Blood clots, Easy bleeding, Easy bruising, Enlarged lymph nodes, Swollen glands, Other Physical Exam - Vital signs Vitals: Temp Pulse Resp BP Pulse Ox 98.0 F 82 17 119/66 99 04/14/17 11:08 04/14/17 11:08 04/14/17 11:08 04/14/17 11:08 04/14/17 11:08 - Notes Notes: PHYSICAL EXAMINATION: GENERAL: Well-appearing, well-nourished and in no acute distress. HEAD: Atraumatic, normocephalic. EYES: Pupils equal round and reactive to light, extraocular movements intact, conjunctiva are normal. ENT: Nares patent, oropharynx clear without exudates. Moist mucous membranes. NECK: Normal range of motion, supple without lymphadenopathy LUNGS: Breath sounds clear to auscultation bilaterally and equal. No wheezes rales or rhonchi. Sharp chest wall tenderness noted along the sixth dermatomal pattern over the ribs All the way from the scapular region to the sternum. And change of position increases the intensity of pain. HEART: Regular rate and rhythm without murmurs ABDOMEN: Soft, nontender, nondistended abdomen. No guarding, no rebound. No masses appreciated. Female : deferred Musculoskeletal: Normal range of motion, no pitting or edema. No cyanosis. NEUROLOGICAL: Cranial nerves grossly intact. Normal speech, normal gait. Normal sensory, motor exams PSYCH: Normal mood, normal affect. SKIN: Warm, Dry, normal turgor, no rashes or lesions noted. Course - Re-evaluation Re-evalutation: 04/14/17 12:56 She was taught how to do the change of position exercise. - Vital Signs Vital signs: Temp Pulse Resp BP Pulse Ox 98.0 F 82 17 119/66 99 04/14/17 11:08 04/14/17 11:08 04/14/17 11:08 04/14/17 11:08 04/14/17 11:08 - Laboratory Result Diagrams: 04/14/17 11:54 04/14/17 11:54 Laboratory results interpreted by me: 04/14/17 04/14/17 11:54 11:54 WBC 3.0 L Hgb 11.2 L Hct 34.6 L MCH 26.8 L Seg Neutrophils % 38.9 L Lymphocytes % 49.6 H Absolute Neutrophils 1.2 L Alkaline Phosphatase 33 L Discharge - Discharge Clinical Impression: Chest wall pain Disposition: HOME, SELF-CARE Instructions: Chest Wall Pain ([facility]) Prescriptions: Baclofen [Baclofen 10 mg Tablet] 10 mg PO TID #90 tab Diclofenac Sodium 50 mg PO TID #30 tablet.
[2017-04-14 13:41] VITALS: BP 110/78
--- NOTE | 2017-04-14 13:51 | EKG REPORT ---
SEVERITY:- ABNORMAL ECG - SINUS RHYTHM FIRST DEGREE AV BLOCK : Confirmed by: Harry Colby MD 14-Apr-2017 13:51:02
== END 2017-04-14 13:55 | disposition home or self-care (01) ==
LOC: ER 11:05
DX: R07.89 Other chest pain (principal); Z91.018 Allergy to other foods
CPT/HCPCS: 93005; 99285; 96372; 36415; 85025; 80053; 84484; 71046; 93010; J1885

== ENCOUNTER 2017-05-07 13:54 | Emergency (ER) | payer SELFPAY ==
--- NOTE | 2017-05-07 15:34 | ER Document Report ---
ED Medical Screen (RME) - General Chief Complaint: Chest Wall Pain Stated Complaint: CHEST PAIN Time Seen by Provider: 05/07/17 15:33 Notes: pt with left sided cp. non smoke, on depo. no pmh. TRAVEL OUTSIDE OF THE [place] IN LAST 30 DAYS: No - Related Data Allergies/Adverse Reactions: No Known Drug Allergies Allergy (Verified 05/07/17 15:32) pineapple [Pineapple] Allergy (Verified 05/07/17 15:32) Past Medical History - Social History Chew tobacco use (# tins/day): No Frequency of alcohol use: None Drug Abuse: None Family history: None Pulmonary Medical History: Reports: Hx Bronchitis Neurological Medical History: Reports: Hx Migraine Renal/ Medical History: Denies: Hx Peritoneal Dialysis Psychiatric Medical History: Reports: Hx Depression - Immunizations Hx Diphtheria, Pertussis, Tetanus Vaccination: Yes Physical Exam - Vital signs Vitals: Temp Pulse Resp BP Pulse Ox 98.8 F 67 20 112/70 100 05/07/17 14:15 05/07/17 14:15 05/07/17 14:15 05/07/17 14:15 05/07/17 14:15 Course - Vital Signs Vital signs: Temp Pulse Resp BP Pulse Ox 98.8 F 67 20 112/70 100 05/07/17 14:15 05/07/17 14:15 05/07/17 14:15 05/07/17 14:15 05/07/17 14:15
--- NOTE | 2017-05-07 15:36 | RADIOLOGY REPORT (SQ) ---
EXAM DESCRIPTION: CHEST PA/LAT COMPLETED DATE/TIME: 05/07/2017 3:28 pm REASON FOR STUDY: chest pain COMPARISON: Two-view chest 04/14/2017 EXAM PARAMETERS: NUMBER OF VIEWS: two views TECHNIQUE: Digital Frontal and Lateral radiographic views of the chest acquired. RADIATION DOSE: NA LIMITATIONS: none FINDINGS: LUNGS AND PLEURA: No opacities, masses or pneumothorax. No pleural effusion. MEDIASTINUM AND HILAR STRUCTURES: No masses or contour abnormalities. HEART AND VASCULAR STRUCTURES: Heart normal size. No evidence for failure. BONES: No acute findings. HARDWARE: None in the chest. OTHER: No other significant finding. IMPRESSION: NO SIGNIFICANT RADIOGRAPHIC FINDING IN THE CHEST. TECHNICAL DOCUMENTATION: JOB ID: [id number] [employer]- All Rights Reserved Reading location - IP/workstation name: [facility]-[email or web address]
--- NOTE | 2017-05-07 15:45 | ER Document Report ---
HPI - HPI Pain Level: 4 Notes: Patient is a 26-year-old female with no significant past medical history who presents to the ED complaining of left chest wall pain 2 days. Patient states that the pain is worsened by pushing and by twisting movements. Patient states that when she takes a deep breath she does notice the pain which is what she is calling short of breath. Patient states that she is otherwise ambulatory without any dyspnea on exertion or worsening symptoms. Patient states that she had this same pain about a month ago and was told it was in her ribs. Patient states that the pain did resolve, but returned. Patient does not recall any lifting or other injury that exacerbated her symptoms. Patient has not had any distance travel, prolonged immobilization, recent surgery/trauma, radius DVT/PE , smoking. Patient does admit to being on control with the Depo-Provera shot. Patient states that she is otherwise eating and drinking without difficulties. She is urinating normally and having normal bowel movements. No other concerns or complaints at this time. Denies any headache, fever, neck pain, URI, sore throat, chest pain, palpitations, syncope, cough, shortness of breath, wheeze, dyspnea, abdominal pain, nausea/vomiting/diarrhea, urinary retention, dysuria, hematuria, loss of control of bowel or bladder, numbness/ tingling, saddle anesthesia, muscle paralysis/weakness, or rash. - ROS Systems Reviewed and Negative: Yes All other systems reviewed and negative - REPRODUCTIVE Reproductive: DENIES: : - DERM Skin Color: Normal Past Medical History - Social History Smoking Status: Never Smoker Chew tobacco use (# tins/day): No Frequency of alcohol use: None Drug Abuse: None Family History: Reviewed & Not Pertinent Patient has suicidal ideation: No Patient has homicidal ideation: No Pulmonary Medical History: Reports: Hx Bronchitis Neurological Medical History: Reports: Hx Migraine Renal/ Medical History: Denies: Hx Peritoneal Dialysis Psychiatric Medical History: Reports: Hx Depression - Immunizations Hx Diphtheria, Pertussis, Tetanus Vaccination: Yes Vertical Provider Document - CONSTITUTIONAL Agree With Documented VS: Yes Notes: PHYSICAL EXAMINATION: GENERAL: Well-appearing, well-nourished and in no acute distress. HEAD: Atraumatic, normocephalic. EYES: Pupils equal round and reactive to light, extraocular movements intact, sclera anicteric, conjunctiva are normal. ENT: Nares patent and without discharge. oropharynx clear without exudates. No tonsilar hypertrophy or erythema. Moist mucous membranes. NECK: Normal range of motion, supple without lymphadenopathy Chest: Moderate tenderness to the left superior chest wall, correlates with pain described per patient. Equal rise/fall. No flail chest. Pain elicited with movement as well. LUNGS: Breath sounds clear to auscultation bilaterally and equal. No wheezes rales or rhonchi. HEART: Regular rate and rhythm without murmurs, rubs, gallops. ABDOMEN: Soft, nontender, nondistended abdomen. No guarding, no rebound. No masses appreciated. Normal bowel sounds present. No CVA tenderness bilaterally. Musculoskeletal: FROM to passive/active. Strength 5+/5. Benjamin neg b/l. No calf erythema/asymmetry/swelling/tenderness b/l. Extremities: No cyanosis, clubbing, or edema b/l. Peripheral pulses 2+. Capillary refill less than 3 seconds. NEUROLOGICAL: Normal speech, normal gait. Normal sensory, motor exams PSYCH: Normal mood, normal affect. SKIN: Warm, Dry, normal turgor, no rashes or lesions noted. - INFECTION CONTROL TRAVEL OUTSIDE OF THE [place] IN LAST 30 DAYS: No Course - Re-evaluation Re-evalutation: 05/07/17 17:49 Patient is an afebrile, well-hydrated, 26-year-old female who presents to the ED with chest wall pain based on H&P today. Vitals are acceptable. PE is otherwise unremarkable aside from the reproducible chest wall tenderness. Chest wall tenderness was also elicited with movement. Labs ordered from [facility]: CBC, CMP, d-dimer, UA/HCG, cardiac enzymes were unremarkable for any acute pathology. Chest x-ray and EKG were also unremarkable for any acute pathology. Patient was given Toradol and Lidoderm patch which improved her symptoms. Low suspicion for any ACS, PE, pneumothorax, pericarditis, dissection, respiratory compromise, severe dehydration, sepsis, meningitis, or other systemic emergent condition at this time. Patient is aware that her condition can change from initial presentation and she needs to monitor symptoms closely and seek medical attention for any acute changes. Recommend conservative measures for symptoms. Recheck with your PCM in 3-5 days. Return to the ED with any worsening/concerning symptoms otherwise as reviewed in discharge. Patient is in agreement. - Vital Signs Vital signs: Temp Pulse Resp BP Pulse Ox 98.8 F 67 20 112/70 100 05/07/17 14:15 05/07/17 14:15 05/07/17 14:15 05/07/17 14:15 05/07/17 14:15 - Laboratory Result Diagrams: 05/07/17 16:34 05/07/17 16:34 Discharge - Discharge Clinical Impression: Chest wall pain Condition: Stable Disposition: HOME, SELF-CARE Instructions: Chest Wall Pain ([facility]) Additional Instructions: Rest, Ice Tylenol/ibuprofen as needed Light stretches daily Strength exercises as able Moist heat and massage may help F/u with your PCP in 3-5 days for a recheck Consider consult(s) with Orthopedics/physical therapy for ongoing/worsening symptoms Return to the ED with any worsening symptoms and/or development of fever, headache, chest pain, palpitations, syncope, shortness of breath, trouble breathing, abdominal pain, n/v/d, muscle weakness/paralysis, numbness/tingling, swelling, redness, or other worsening symptoms that are concerning to you. Referrals: [facility] [Provider Group] - Follow up as needed [facility] [Provider Group] - Follow up as needed [facility] [Provider Group] - Follow up as needed
[2017-05-07] MEDS ORDERED: KETOROLAC TROMETHAMINE INJ/PF 30 MG/1 ML SDV IM ONE (15:59)
[2017-05-07] MEDS ORDERED: LIDOCAINE 5% (700 MG) TRANSDERMAL ADH..PATCH TP ONE (15:59)
[2017-05-07 16:26] LABS: APPEARANCE,URINE SLIGHTLY-CLOUDY; BILIRUBIN,URINE NEGATIVE (NEGATIVE); COLOR,URINE YELLOW; GLUCOSE, URINE NEGATIVE (NEGATIVE); KETONES,URINE TRACE mg/dL (NEGATIVE); LEUKOCYTE ESTERASE,URINE TRACE (NEGATIVE); NITRITE,URINE NEGATIVE (NEGATIVE); PROTEIN,URINE NEGATIVE (NEGATIVE); URINE SPECIFIC GRAVITY 1.025
[2017-05-07 16:51] LABS: ABSOLUTE LYMPHOCYTES (AUTO) 1.8 10^3/uL (0.5-4.7); ABSOLUTE MONOCYTES (AUTO) 0.4 10^3/uL (0.1-1.4); ABSOLUTE NEUT (AUTO) 1.7 10^3/uL (1.7-8.2); BASOPHILS % (AUTO) 0.2 % (0-2); EOSINOPHILS % (AUTO) 0.8 % (0-6); HEMOGLOBIN 12.3 g/dL (12.0-15.5); LYMPHOCYTES % (AUTO) 44.8 % (13-45); MEAN CORPUSCULAR HEMOGLOBIN 26.9 pg (27.0-33.4); MEAN CORPUSCULAR HGB CONC 32.4 g/dL (32.0-36.0); MEAN CORPUSCULAR VOLUME 83 fl (80-97); MONOCYTES % (AUTO) 10.8 % (3-13); PLATELET COUNT 180 10^3/uL (150-450); RED BLOOD COUNT 4.59 10^6/uL (3.72-5.28); RED CELL DISTRIBUTION WIDTH 13.9 % (11.5-14.0); SEGMENTED NEUTROPHILS % (AUTO) 43.4 % (42-78); TOTAL CELLS COUNTED % (AUTO) 100 %
[2017-05-07 17:11] LABS: ALANINE AMINOTRANSFERASE 26 U/L (9-52); ALBUMIN 4.6 g/dL (3.5-5.0); ALKALINE PHOSPHATASE 35 U/L (38-126); ANION GAP 10 (5-19); ASPARTATE AMINO TRANSFERASE 20 U/L (14-36); BILIRUBIN,DIRECT 0.3 mg/dL (0.0-0.4); BILIRUBIN,TOTAL 0.3 mg/dL (0.2-1.3); BLOOD UREA NITROGEN 11 mg/dL (7-20); CALCIUM 9.9 mg/dL (8.4-10.2); CARBON DIOXIDE 24 mmol/L (22-30); CHLORIDE 106 mmol/L (98-107); GLUCOSE 82 mg/dL (75-110); POTASSIUM 4.5 mmol/L (3.6-5.0); SODIUM 140.1 mmol/L (137-145); TOTAL PROTEIN 8.3 g/dL (6.3-8.2)
[2017-05-07 18:11] VITALS: BP 114/71
--- NOTE | 2017-05-08 22:07 | EKG REPORT ---
SEVERITY:- NORMAL ECG - SINUS RHYTHM : Confirmed by: Susie Villafana 08-May-2017 22:07:11
== END 2017-05-07 18:10 | disposition home or self-care (01) ==
LOC: ER 13:54
DX: R07.89 Other chest pain (principal); Z79.3 Long term (current) use of hormonal contraceptives
CPT/HCPCS: 93005; 99285; 96372; 36415; 85025; 81025; 80053; 81001; 84484; 85379; 71046; 93010; J1885

== ENCOUNTER 2017-07-07 14:23 | Emergency (ER) | payer SELFPAY ==
[2017-07-07] MEDS ORDERED: GUAIFENESIN 600 MG TABLET.SA PO ONE (17:16)
[2017-07-07] MEDS ORDERED: PSEUDOEPHEDRINE HCL 30 MG TABLET PO ONE (17:16)
[2017-07-07] MEDS ORDERED: LORATADINE 10 MG TABLET PO ONE (17:16)
--- NOTE | 2017-07-07 17:23 | ER Document Report ---
ED Respiratory Problem - General Chief Complaint: Sinus Congestion Stated Complaint: DIZZINESS,HEADACHE Time Seen by Provider: 07/07/17 17:15 Mode of Arrival: Ambulatory Information source: Patient Notes: 26-year-old female presents to ED for complaint of nasal pain and congestion pressure headache and sore throat 2 days. She states she has had some cough on and off as well as sneezing. She states she had a temperature this morning of 100. She is alert oriented, pupils equal and reactive light, respirations regular even unlabored, speaking in full sentences with a normal voice, walks with a even steady gait. TRAVEL OUTSIDE OF THE [place] IN LAST 30 DAYS: No - HPI Patient complains to provider of: Cough Onset: Other - 2 days Initiating Event: URI Quality of pain: Achy - Headache, Other - Crutches sore throat Severity: Moderate Pain Level: 3 Context: denies: Smoker Cough: Nonproductive Sputum amount: None Associated symptoms: Chills, Congestion, Cough, Headache, PND, Runny nose, Sinus pain/pressure, Sore Throat Similar symptoms previously: Yes Recently seen / treated by doctor: No - Related Data Allergies/Adverse Reactions: No Known Drug Allergies Allergy (Verified 05/07/17 15:32) pineapple [Pineapple] Allergy (Verified 05/07/17 15:32) Past Medical History - General Information source: Patient - Social History Smoking Status: Never Smoker Cigarette use (# per day): No Chew tobacco use (# tins/day): No Smoking Education Provided: No Frequency of alcohol use: None Drug Abuse: None Family History: Reviewed & Not Pertinent Patient has suicidal ideation: No Patient has homicidal ideation: No - Past Medical History Cardiac Medical History: Reports: None Pulmonary Medical History: Reports: Hx Bronchitis EENT Medical History: Reports: None Neurological Medical History: Reports: Hx Migraine Endocrine Medical History: Reports: None Renal/ Medical History: Reports: None Malignancy Medical History: Reports: None GI Medical History: Reports: None Musculoskeltal Medical History: Reports None Skin Medical History: Reports None Psychiatric Medical History: Reports: Hx Depression Traumatic Medical History: Reports: None Infectious Medical History: Reports: None Surgical Hx: Negative Past Surgical History: Reports: None - Immunizations Hx Diphtheria, Pertussis, Tetanus Vaccination: Yes Review of Systems - Review of Systems Constitutional: Chills, Fever, Recent illness EENT: No symptoms reported, Nose discharge, Sinus discharge Cardiovascular: No symptoms reported Respiratory: Cough Gastrointestinal: No symptoms reported Genitourinary: No symptoms reported Female Genitourinary: No symptoms reported Musculoskeletal: No symptoms reported Skin: No symptoms reported Hematologic/Lymphatic: No symptoms reported Neurological/Psychological: No symptoms reported -: Yes All other systems reviewed and negative Physical Exam - Vital signs Vitals: Temp Pulse Resp BP Pulse Ox 98.5 F 63 18 115/71 100 07/07/17 14:50 07/07/17 14:50 07/07/17 14:50 07/07/17 14:50 07/07/17 14:50 Interpretation: Normal - General General appearance: Appears well, Alert - HEENT Head: Normocephalic, Atraumatic Eyes: Normal Pupils: PERRL Ears: Normal External canal: Normal Tympanic membrane: Normal Sinus: Normal Nasal: Purulent discharge, Swelling Mouth/Lips: Normal Mucous membranes: Normal Pharynx: Post nasal drainage Neck: Normal - Respiratory Respiratory status: No respiratory distress Chest status: Nontender Breath sounds: Nonproductive cough. No: Productive cough, Rales, Rhonchi, Stridor, Wheezing Chest palpation: Normal - Cardiovascular Rhythm: Regular Heart sounds: Normal auscultation Murmur: No - Abdominal Inspection: Normal Distension: No distension Bowel sounds: Normal Tenderness: Nontender Organomegaly: No organomegaly - Back Back: Normal, Nontender - Extremities General upper extremity: Normal inspection, Nontender, Normal color, Normal ROM , Normal temperature General lower extremity: Normal inspection, Nontender, Normal color, Normal ROM , Normal temperature, Normal weight bearing. No: Benjamin's sign - Neurological Neuro grossly intact: Yes Cognition: Normal Orientation: AAOx4 Adriana Coma Scale Eye Opening: Spontaneous Adriana Coma Scale Verbal: Oriented Farnsworth Coma Scale Motor: Obeys Commands Farnsworth Coma Scale Total: 15 Speech: Normal Motor strength normal: LUE, RUE, LLE, RLE Sensory: Normal - Psychological Associated symptoms: Normal affect, Normal mood - Skin Skin Temperature: Warm Skin Moisture: Dry Skin Color: Normal Course - Re-evaluation Re-evalutation: 07/07/17 17:29 After performing a Medical Screening Examination, I estimate there is LOW risk for ACUTE CORONARY SYNDROME, RESPIRATORY FAILURE, SEPSIS OR MENINGITIS, thus I consider the discharge disposition reasonable. I have reevaluated this patient multiple times and no significant life threatening changes are noted. The patient and I have discussed the diagnosis and risks, and we agree with discharging home with close follow-up. We also discussed returning to the Emergency Department immediately if new or worsening symptoms occur. We have discussed the symptoms which are most concerning (e.g., changing or worsening pain, trouble swallowing or breathing, neck stiffness, fever) that necessitate immediate return. She was treated with Claritin 10 mg, Sudafed 30 mg, and Mucinex 600 mg in the ED. - Vital Signs Vital signs: Temp Pulse Resp BP Pulse Ox 98.5 F 63 18 115/71 100 07/07/17 14:50 07/07/17 14:50 07/07/17 14:50 07/07/17 14:50 07/07/17 14:50 Discharge - Discharge Clinical Impression: URI (upper respiratory infection) Qualifiers: URI type: unspecified URI Qualified Code(s): J06.9 - Acute upper respiratory infection, unspecified Condition: Stable Disposition: HOME, SELF-CARE Instructions: Family Physicians / Practices Additional Instructions: UPPER RESPIRATORY ILLNESS: You have a viral infection of the respiratory passages -- a "cold." This common infection causes nasal congestion, drainage, and often sore throat and cough. It is highly contagious. The disease usually lasts about 10 to 14 days. There is no "cure" for the viral infection -- it must run its course. If there is a complication, such as bacterial infection in the nose, sinuses, middle ear, or bronchial tubes, antibiotics may be required. The antibiotics won't affect the virus. Drink plenty of fluids. A humidifier may help. An expectorant medication or decongestant may make you more comfortable. Use acetaminophen or ibuprofen for fever or aches. See the doctor if fever persists over two days, if there is any significant worsening of your symptoms, or if you simply fail to improve as expected. DECONGESTANT MEDICATION: A decongestant medicine has been prescribed. Often this medicine is combined in the same tablet with an antihistamine or expectorant. This type of medicine is helpful in treating a bad cold or sinus condition, as well as in treatment of the nasal congestion of hay fever. It is not of much benefit for lung infections. Decongestant medicines are related to stimulants. They can cause an increase in blood pressure and heart rate. Persons with heart disease and high blood pressure should not take decongestants without discussing this with the physician. If you develop palpitations, chest pain, headache, or tremors, stop the medicine and consult your physician. COUGH-SUPPRESSANT & EXPECTORANT MEDICATION: You are to use a cough medication as needed for relief of symptoms. This medicine is a combination of an expectorant (to make the mucous thinner and more easily "coughed up") and a cough suppressant (to reduce the frequency of coughing). The cough-suppressant medicine is related to narcotics. You may experience mild nausea and sleepiness. Some patients who are very sensitive to narcotics may have stomach pain from this medicine. Taking the medicine with food reduces these side effects. Do not drive or work with machinery until you know how this medicine affects you. The expectorant should have no side effects. Iodine-containing expectorants (such as organidin) should not be taken by persons with active thyroid disease unless approved by your doctor. Call the doctor if you develop shortness of breath, hives, rash, itching, lightheadedness, or severe nausea and vomiting. USE OF ACETAMINOPHEN (Tylenol): Acetaminophen may be taken for pain relief or fever control. It's much safer than aspirin, offering a wider range of "safe" dosages. It is safe during . Some brand names are Tylenol, Panadol, Datril, Anacin 3, Tempra, and Liquiprin. Acetaminophen can be repeated every four hours. The following are maximum recommended dosages: >89 pounds or adults 650 mg to 900 mg Acetaminophen can be repeated every four hours. Maximum dose not to exceed 4000 mg a day. You have been treated with Claritin 10 mg p.o., Sudafed 30 mg p.o., and Mucinex 600 mg p.o. in the emergency room. These are all [id number] medications that you can buy the Sudafed you will have to ask the pharmacist for. I also recommend Flonase which is [id number] follow the instructions on the bottle. I also recommend salt and soda solution gargles. Salt and soda solution 1 quart of water 1 tablespoon of salt 1 teaspoon of baking soda Mixed 3 ingredients together and boil for 1 minute Placed in a covered quart jar Use 1/2 ounce of cold solution to gargle 3 times a day FOLLOW-UP CARE: If you have been referred to a physician for follow-up care, call the physician s office for an appointment as you were instructed or within the next two days. If you experience worsening or a significant change in your symptoms, notify the physician immediately or return to the Emergency Department at any time for re-evaluation. Forms: Return to Work
[2017-07-07 17:36] VITALS: BP 117/65
== END 2017-07-07 17:35 | disposition home or self-care (01) ==
LOC: ER 14:23
DX: J06.9 Acute upper respiratory infection, unspecified (principal); J34.89 Other specified disorders of nose and nasal sinuses; R09.81 Nasal congestion; R51 Headache; J02.9 Acute pharyngitis, unspecified; R06.7 Sneezing; R09.82 Postnasal drip; R50.9 Fever, unspecified; R05 Cough; Z91.018 Allergy to other foods
CPT/HCPCS: 99283

== ENCOUNTER 2017-08-11 08:58 | Emergency (ER) | payer SELFPAY ==
[2017-08-11 09:02] VITALS: BP 105/71
[2017-08-11] MEDS ORDERED: PREDNISONE 20 MG TABLET PO ONE (09:13)
[2017-08-11] MEDS ORDERED: FAMOTIDINE 20 MG TABLET PO ONE (09:13)
[2017-08-11] MEDS ORDERED: HYDROXYZINE PAMOATE 25 MG CAPSULE PO ONE (09:14)
--- NOTE | 2017-08-11 09:20 | ER Document Report ---
ED Skin Rash/Insect Bite/Abscs - General Chief Complaint: Itching Stated Complaint: SKIN ISSUE Time Seen by Provider: 08/11/17 09:13 Mode of Arrival: Ambulatory Information source: Patient Notes: The 6-year-old female went to the beach on Friday. She states she had some itching on Friday rash broke out on Friday she is tried Benadryl twice a day and hydrocodone zone cream and is not getting any relief from the itching. She states she does not know what she came in contact with but the itching is getting unbearable. Patient is alert and oriented respirations regular and unlabored speaking in full sentences. No shortness of breath no swelling to her mouth and throat base. No angioedema. TRAVEL OUTSIDE OF THE [place] IN LAST 30 DAYS: No - HPI Patient complains to provider of: Skin rash/lesion Onset: Other - Friday Onset/Duration: Gradual, Worse Quality of pain: No pain Severity: None Pain Level: Denies Skin Character: Rash Quality of rash: Itchy Identify cause: No Exacerbated by: Denies Relieved by: Denies Similar symptoms previously: No Recently seen / treated by doctor: No - Related Data Allergies/Adverse Reactions: No Known Drug Allergies Allergy (Verified 08/11/17 09:00) pineapple [Pineapple] Allergy (Verified 08/11/17 09:00) Past Medical History - General Information source: Patient - Social History Smoking Status: Never Smoker Cigarette use (# per day): No Chew tobacco use (# tins/day): No Smoking Education Provided: No Frequency of alcohol use: None Drug Abuse: None Occupation: [employer] Lives with: Parents Family History: Reviewed & Not Pertinent Patient has suicidal ideation: No Patient has homicidal ideation: No - Past Medical History Cardiac Medical History: Reports: None Pulmonary Medical History: Reports: Hx Bronchitis EENT Medical History: Reports: None Neurological Medical History: Reports: Hx Migraine Endocrine Medical History: Reports: None Renal/ Medical History: Reports: None Malignancy Medical History: Reports: None GI Medical History: Reports: None Musculoskeltal Medical History: Reports None Skin Medical History: Reports None Psychiatric Medical History: Reports: None, Hx Depression Traumatic Medical History: Reports: None Infectious Medical History: Reports: None Surgical Hx: Negative Past Surgical History: Reports: None - Immunizations Hx Diphtheria, Pertussis, Tetanus Vaccination: Yes Review of Systems - Review of Systems Constitutional: No symptoms reported EENT: No symptoms reported Cardiovascular: No symptoms reported Respiratory: No symptoms reported Gastrointestinal: No symptoms reported Genitourinary: No symptoms reported Female Genitourinary: No symptoms reported Musculoskeletal: No symptoms reported Skin: Rash Hematologic/Lymphatic: No symptoms reported Neurological/Psychological: No symptoms reported -: Yes All other systems reviewed and negative Physical Exam - Vital signs Vitals: Temp Pulse Resp BP Pulse Ox 97.8 F 79 16 105/71 98 08/11/17 09:01 08/11/17 09:01 08/11/17 09:01 08/11/17 09:01 08/11/17 09:01 Interpretation: Normal - General General appearance: Appears well, Alert - HEENT Head: Normocephalic, Atraumatic Eyes: Normal Pupils: PERRL - Respiratory Respiratory status: No respiratory distress Chest status: Nontender Breath sounds: Normal Chest palpation: Normal - Cardiovascular Rhythm: Regular Heart sounds: Normal auscultation Murmur: No - Abdominal Inspection: Normal Distension: No distension Bowel sounds: Normal Tenderness: Nontender Organomegaly: No organomegaly - Back Back: Normal, Nontender - Extremities General upper extremity: Normal inspection, Nontender, Normal color, Normal ROM , Normal temperature General lower extremity: Normal inspection, Nontender, Normal color, Normal ROM , Normal temperature, Normal weight bearing. No: Benjamin's sign - Neurological Neuro grossly intact: Yes Cognition: Normal Orientation: AAOx4 Adriana Coma Scale Eye Opening: Spontaneous Adriana Coma Scale Verbal: Oriented Hume Coma Scale Motor: Obeys Commands Adriana Coma Scale Total: 15 Speech: Normal Motor strength normal: LUE, RUE, LLE, RLE Sensory: Normal - Psychological Associated symptoms: Normal affect, Normal mood - Skin Skin Temperature: Warm Skin Moisture: Dry Skin Color: Normal Skin irregularity: Erythema, Rash Location of irregularity: Abdomen, Chest, Extremities Character of irregularity: Maculopapular Course - Re-evaluation Re-evalutation: 08/11/17 09:22 Patient was treated with Vistaril Pepcid and prednisone and discharged home with prescriptions for the same. Patient was instructed to follow-up with her primary doctor. Patient was able to verbalize understanding and agreement with treatment plan. - Vital Signs Vital signs: Temp Pulse Resp BP Pulse Ox 97.8 F 79 16 105/71 98 08/11/17 09:01 08/11/17 09:01 08/11/17 09:01 08/11/17 09:01 08/11/17 09:01 Discharge - Discharge Clinical Impression: Rash and nonspecific skin eruption Condition: Stable Disposition: HOME, SELF-CARE Instructions: Family Physicians / Practices, Use of [id number] Ibuprofen ([facility]) Additional Instructions: ACUTE ALLERGIC REACTION: Your symptoms are due to an allergic reaction. Allergy can cause hives, swelling of the hands, feet, and face, hoarseness, and difficulty swallowing or breathing. It may be due to exposure to medication, animal dander, foods, infection, or insect bites. Medication is a common cause, even when prior use of this same medication caused no problems. Acute treatment may include adrenalin and antihistamines. Usually, the specific allergic agent can't be identified unless repeated episodes occur. Home treatment includes the following: (1) Stop any suspicious medications. This will be discussed with you. (2) Oral antihistamines for the next four to five days. Example, diphenhydramine (Benadryl) every four hours. (3) You may also use cimetidine (Tagamet), ranitidine (Zantac), or famotidine ( Pepcid) every four hours if diphenhydramine is not controlling itching and hives. (4) Avoid aspirin until the hives completely disappear. (5) Avoid hot baths or showers until the hives are completely gone. Call the doctor if faintness, difficulty swallowing, tightness in the chest , or wheezing occurs. STEROID MEDICATION: You have been given a medicine of the cortisone/steroid class. This medication is used to control inflammation or allergy. It is usually only given for a short period of time, until the acute process subsides. There are usually no side effects from short-term use of cortisone-like medications. Some persons feel an increased sense of well-being and are not sleepy at bedtime. Long-term use of cortisone medications is best avoided, unless required for a severe condition. If your condition does not remit, or relapses after the course of corticosteroid medication, you should consult your physician. ACID-SUPPRESSING MEDICATION: You have a prescription for medicine which reduces the stomach's secretion of acid. Examples include Zantac, Tagament, and Pepcid. These drugs are often used to allow healing of ulcers or esophagitis. They may be needed to prevent recurrence of ulcers in some patients, or to prevent damage from acid reflux in the esophagus. Take all medication as prescribed, even after the pain is gone. Regular antacids may be added as needed if you have symptoms while taking this medicine. These medications sometimes are prescribed for allergic reactions because they have anti-histaminic effects and relieve the rash and itching of the reaction. There are usually no side effects from this medication. But, in rare cases and particularly in the elderly, serious problems can occur. Contact your doctor if there is fever, rash, hallucinations, confusion, or unusual bruising. Contact your doctor at once if you develop lightheadedness, black or bloody stool, or bloody vomitus. ANTIHISTAMINES: An antihistamine has been given and/or prescribed to control your symptoms. Antihistamines are used for many reasons, including itching, watering eyes, runny nose, allergic swelling, hives, and insect stings. Antihistamines may cause drowsiness, especially with the first dose. Do not operate machinery or drive while under the effects of the medication. Other common side effects include dry mouth and eyes. In older persons, antihistamines can occasionally cause urinary retention, constipation, and trouble focusing the eyes. Do not combine the medication with alcohol, or with any other medication without talking to your doctor. FOLLOW-UP CARE: If you have been referred to a physician for follow-up care, call the physician s office for an appointment as you were instructed or within the next two days. If you experience worsening or a significant change in your symptoms, notify the physician immediately or return to the Emergency Department at any time for re-evaluation. Prescriptions: Famotidine [Pepcid 20 mg Tablet] 20 mg PO BID #12 tablet Hydroxyzine Pamoate [Vistaril 25 mg Capsule] 25 mg PO BIDP PRN #10 capsule PRN Reason: Prednisone [Sterapred Ds] 1 pkg PO ASDIR PRN 12 Days tab.ds.pk PRN Reason: Forms: Return to Work
== END 2017-08-11 09:30 | disposition home or self-care (01) ==
LOC: ER 08:58
DX: R21 Rash and other nonspecific skin eruption (principal); L29.9 Pruritus, unspecified; Z91.018 Allergy to other foods
CPT/HCPCS: 99282; J7512

== ENCOUNTER 2017-09-09 21:31 | Emergency (ER) | payer SELFPAY ==
[2017-09-09] MEDS ORDERED: ONDANSETRON 4 MG TAB.RAPDIS PO ONE (23:06)
[2017-09-09] MEDS ORDERED: ACETAMINOPHEN 325 MG TABLET PO ONE (23:06)
--- NOTE | 2017-09-09 23:06 | ER Document Report ---
HPI - HPI Pain Level: 4 Notes: Patient presents with chief complaint of sore throat, chills and nausea 2 days. Patient reports she feels like she may have strep throat. Patient denies any abdominal pain, vomiting or diarrhea. - CONSTITUTIONAL Constitutional: REPORTS: Chills. DENIES: Fever - EENT EENT: REPORTS: Sore Throat. DENIES: Ear Pain, Eye problems - GASTROINTESTINAL Gastrointestinal: DENIES: Abdominal Pain, Black / Bloody Stools - REPRODUCTIVE Reproductive: DENIES: : Past Medical History - General Information source: Patient - Social History Smoking Status: Never Smoker Chew tobacco use (# tins/day): No Frequency of alcohol use: None Drug Abuse: None Family History: Reviewed & Not Pertinent Patient has suicidal ideation: No Patient has homicidal ideation: No Pulmonary Medical History: Reports: Hx Bronchitis Neurological Medical History: Reports: Hx Migraine Renal/ Medical History: Denies: Hx Peritoneal Dialysis Psychiatric Medical History: Reports: Hx Depression - Immunizations Hx Diphtheria, Pertussis, Tetanus Vaccination: Yes Vertical Provider Document - CONSTITUTIONAL Notes: PHYSICAL EXAMINATION: GENERAL: Well-appearing, well-nourished and in no acute distress. HEAD: Atraumatic, normocephalic. EYES: Pupils equal round and reactive to light, extraocular movements intact, conjunctiva are normal. ENT: Nares patent, oropharynx mildly erythematous without exudates. Moist mucous membranes. NECK: Normal range of motion, supple without lymphadenopathy LUNGS: Breath sounds clear to auscultation bilaterally and equal. No wheezes rales or rhonchi. HEART: Regular rate and rhythm without murmurs ABDOMEN: Soft, nontender, nondistended abdomen. No guarding, no rebound. No masses appreciated. Female : deferred Musculoskeletal: Normal range of motion, no pitting or edema. No cyanosis. NEUROLOGICAL: Cranial nerves grossly intact. Normal speech, normal gait. Normal sensory, motor exams PSYCH: Normal mood, normal affect. SKIN: Warm, Dry, normal turgor, no rashes or lesions noted. - INFECTION CONTROL TRAVEL OUTSIDE OF THE [place] IN LAST 30 DAYS: No Course - Re-evaluation Re-evalutation: 09/09/17 23:06 Will send rapid strep down for evaluation. Patient will be medicated for pain and nausea. Rapid strep is negative. Pain with patient over maxillary sinuses. Will treat patient for likely sinus infection. Patient discharged home in stable condition. - Vital Signs Vital signs: Temp Pulse Resp BP Pulse Ox 98.1 F 83 12 125/91 H 99 09/09/17 21:56 09/09/17 21:56 09/09/17 21:56 09/09/17 21:56 09/09/17 21:56 Discharge - Discharge Clinical Impression: Sinus infection Qualifiers: Sinusitis location: maxillary Chronicity: acute Recurrence: non-recurrent Qualified Code(s): J01.00 - Acute maxillary sinusitis, unspecified Condition: Good Disposition: HOME, SELF-CARE Additional Instructions: Sinusitis You have sinusitis, an infection of the sinus cavities of the face. The sinuses are air-filled chambers which open into the inside of the nose. Bacteria and pus fill a sinus, causing pain, drainage, and fever. Sinusitis is treated with antibiotics. Often, expectorants (to thin the sinus mucous) or decongestants (to reduce swelling) are prescribed as well. Healing requires seven to 10 days. Avoid chemical fumes, pollens, dusts, and smoke (especially cigarette smoke ). Keep the air humidified in your bedroom and work area and take plenty of liquids by mouth. This condition can be serious if the infection spreads. If your symptoms worsen, or if you develop severe headache, high fever, stiff neck, or a rash, you must call the doctor or return for re-evaluation. Please take all medications as prescribed. Centers the antibiotics even if you are feeling better. Please follow-up with your primary care provider next week for a follow-up. Prescriptions: Amox Tr/Potassium Clavulanate [Augmentin 875-125 Tablet] 1 tab PO BID 10 Days # 20 tablet Fluticasone Propionate [Flonase Nasal [place] 50 Mcg/[place] 16 gm] 2 sprays NASL Q12 #1 inhaler Ondansetron [Zofran Odt 4 mg Tablet] 1 - 2 tab PO Q4H PRN #15 tab.rapdis PRN Reason: For Nausea/Vomiting Forms: Return to Work
[2017-09-10 00:48] VITALS: BP 98/54
== END 2017-09-10 00:50 | disposition home or self-care (01) ==
LOC: ER 21:31
DX: J01.00 Acute maxillary sinusitis, unspecified (principal); J02.9 Acute pharyngitis, unspecified; R11.0 Nausea
CPT/HCPCS: 99283; 87070; 87880; S0119

== ENCOUNTER 2017-09-14 19:53 | Emergency (ER) | payer SELFPAY ==
[2017-09-14 20:06] VITALS: BP 116/59
[2017-09-14] MEDS ORDERED: PREDNISONE 20 MG TABLET PO ONE (21:29)
[2017-09-14] MEDS ORDERED: NAPROXEN 250 MG TABLET PO ONE (21:29)
--- NOTE | 2017-09-14 21:33 | ER Document Report ---
ED Extremity Problem, Upper - General Chief Complaint: Arm Pain Stated Complaint: ARM NUMBNESS Time Seen by Provider: 09/14/17 21:11 TRAVEL OUTSIDE OF THE [place] IN LAST 30 DAYS: No - HPI Notes: 26-year-old female presents with left upper extremity pain and numbness. She describes onset over the last day or 2 gradually of pain that radiates from her left lateral neck down her left posterior lateral arm into her hand. Now she has some tingling and numbness in his lateral area. Denies any fever, no trauma. No other associated symptoms. She does quite a bit of heavy lifting and pushing and moving things at work. Gradual onset, nonradiating except as described. No other modifying factors, no other associated symptoms, no other provocative or palliative factors. - Related Data Allergies/Adverse Reactions: No Known Drug Allergies Allergy (Verified 08/11/17 09:00) pineapple [Pineapple] Allergy (Verified 08/11/17 09:00) Past Medical History - Social History Smoking Status: Never Smoker Frequency of alcohol use: None Drug Abuse: None Family History: Reviewed & Not Pertinent Patient has suicidal ideation: No Patient has homicidal ideation: No - Medical History Medical History: Negative Pulmonary Medical History: Reports: Hx Bronchitis Neurological Medical History: Reports: Hx Migraine Renal/ Medical History: Denies: Hx Peritoneal Dialysis Psychiatric Medical History: Reports: Hx Depression - Immunizations Hx Diphtheria, Pertussis, Tetanus Vaccination: Yes Review of Systems - Review of Systems Notes: Review of systems as in history of present illness, otherwise no significant headache, chest pain, abdominal pain. Physical Exam - Vital signs Vitals: Temp Pulse Resp BP Pulse Ox 97.8 F 67 18 116/59 L 100 09/14/17 20:03 09/14/17 20:03 09/14/17 20:03 09/14/17 20:03 09/14/17 20:03 - Notes Notes: General: Well devloped, no acute distress. HEENT: Normocephalic, atraumatic. Pupils equal round reactive to light. Mucosa moist. No JVD. Chest: No trauma, normal excursion. Respiratory: Good air exchange, normal excursion. Cardiac: Regular rhythm Abdomen: Soft, benign. Nondistended. Back: No asymmetry or gross abnormality. Motor: Grossly normal power and tone. Neurologic: Alert, nonfocal. Vascular: Well perfused Skin: No petechiae or purpura Left upper extremity evaluation shows normal pulses. Slightly diminished sensation laterally along the upper arm and the ulnar aspect of the lower arm. Systems Qa Analyst strength and intrinsic hand muscle strength is symmetric. Flexion of the elbow is limited by pain. Abduction of the shoulder is limited by pain. Course - Re-evaluation Re-evalutation: 09/14/17 21:31 Well-appearing female likely cervical radiculopathy. No high-risk features. Will treat conservatively with NSAIDs, Flexeril, steroids, outpatient follow- up. Likely benefit from outpatient MR imaging. - Vital Signs Vital signs: Temp Pulse Resp BP Pulse Ox 97.8 F 67 18 116/59 L 100 09/14/17 20:03 09/14/17 20:03 09/14/17 20:03 09/14/17 20:03 09/14/17 20:03 Discharge - Discharge Clinical Impression: Cervical radiculopathy Condition: Good Disposition: HOME, SELF-CARE Prescriptions: Cyclobenzaprine HCl [Flexeril 10 mg Tablet] 10 mg PO TIDP PRN #15 tab PRN Reason: Methylprednisolone [Medrol Dosepack (4 mg/Tab) 21 Tab/Dosepak] 21 tab PO DAILY 5 Days dspk Naproxen [Naprosyn] 500 mg PO Q12 PRN #10 tablet PRN Reason:
== END 2017-09-14 21:46 | disposition home or self-care (01) ==
LOC: ER 19:53
DX: M54.12 Radiculopathy, cervical region (principal); Z91.018 Allergy to other foods
CPT/HCPCS: 99283; J7512

== ENCOUNTER 2017-09-30 17:41 | Emergency (ER) | payer MEDICAID ==
--- NOTE | 2017-09-30 18:43 | ER Document Report ---
HPI - HPI Patient complains to provider of: Shortness of breath Onset: Yesterday Onset/Duration: Gradual Pain Level: Denies Context: Patient states she developed shortness of breath yesterday that persisted today. Patient denies any cough, cold symptoms nausea or vomiting. Patient states she is 7 weeks . Patient denies any vaginal bleeding, urinary symptoms or abdominal pain. Patient denies any recent travel, bedrest remobilization. Patient denies any history of DVT or PE in the past. Patient also complains of sinus congestion with a nosebleed yesterday. Associated Symptoms: Shortness of breath. denies: Nonproductive cough, Productive cough Exacerbated by: Denies Relieved by: Denies Similar symptoms previously: No Recently seen / treated by doctor: No - ROS ROS below otherwise negative: Yes Systems Reviewed and Negative: Yes All other systems reviewed and negative - CONSTITUTIONAL Constitutional: DENIES: Fever - EENT EENT: REPORTS: Congestion. DENIES: Sore Throat - CARDIOVASCULAR Cardiovascular: DENIES: Chest pain - RESPIRATORY Respiratory: REPORTS: Trouble Breathing. 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 Lives with: Family Family History: Reviewed & Not Pertinent Patient has suicidal ideation: No Patient has homicidal ideation: No Pulmonary Medical History: Reports: Hx Bronchitis Neurological Medical History: Reports: Hx Migraine Renal/ Medical History: Denies: Hx Peritoneal Dialysis Psychiatric Medical History: Reports: Hx Depression Surgical Hx: Negative - Immunizations Hx Diphtheria, Pertussis, Tetanus Vaccination: Yes Vertical Provider Document - CONSTITUTIONAL Agree With Documented VS: Yes Exam Limitations: No Limitations General Appearance: WD/WN, No Apparent Distress - INFECTION CONTROL TRAVEL OUTSIDE OF THE [place] IN LAST 30 DAYS: No - HEENT HEENT: Atraumatic, Normocephalic. negative: Pharyngeal Exudate, Pharyngeal Tenderness, Pharyngeal Erythema, Tympanic Membrane Red, Tympanic Membrane Bulging Notes: Clear rhinorrhea, swollen nasal mucosa - NECK Neck: Normal Inspection, Supple - RESPIRATORY Respiratory: Breath Sounds Normal, No Respiratory Distress, Chest Non-Tender. negative: Rales, Rhonchi, Wheezing - CARDIOVASCULAR Cardiovascular: Regular Rate, Regular Rhythm, No Murmur. negative: Tachycardia - GI/ABDOMEN Gastrointestinal: Abdomen Soft, Abdomen Non-Tender - BACK Back: Normal Inspection - MUSCULOSKELETAL/EXTREMETIES Musculoskeletal/Extremeties: MAEW, FROM, Non-Tender, No Edema - NEURO Level of Consciousness: Awake, Alert, Appropriate Motor/Sensory: No Motor Deficit - DERM Integumentary: Warm, Dry, No Rash Course - Re-evaluation Re-evalutation: 09/30/17 18:[address] Cm regarding patient presentation and diagnostic evaluation. Agrees with plan for chest x-ray, no additional testing advised at this time. 09/30/17 Patient's respirations even and unlabored. Patient without any objective dyspnea symptoms. Stable vital signs. Patient PERC negative - Vital Signs Vital signs: Temp Pulse Resp BP Pulse Ox 98.2 F 71 16 126/59 H 100 09/30/17 18:16 09/30/17 18:16 09/30/17 18:16 09/30/17 18:16 09/30/17 18:16 - Diagnostic Test Radiology reviewed: Reports reviewed Discharge - Discharge Clinical Impression: Shortness of breath Condition: Stable Disposition: HOME, SELF-CARE Instructions: Dyspnea, Nonspecific ([facility]) Additional Instructions: Return immediately for any new or worsening symptoms Followup with your primary care provider, call tomorrow to make a followup appointment Forms: Return to Work Referrals: LEXUS LOPEZ MD [Primary Care Provider] - Follow up tomorrow [facility] [NO LOCAL MD] - Follow up tomorrow
--- NOTE | 2017-09-30 19:43 | RADIOLOGY REPORT (SQ) ---
EXAM DESCRIPTION: CHEST 2 VIEWS COMPLETED DATE/TIME: 09/30/2017 7:10 pm REASON FOR STUDY: sob,shield abd COMPARISON: 05/07/2017 EXAM PARAMETERS: NUMBER OF VIEWS: two views TECHNIQUE: Digital Frontal and Lateral radiographic views of the chest acquired. RADIATION DOSE: NA LIMITATIONS: none FINDINGS: LUNGS AND PLEURA: No opacities, masses or pneumothorax. No pleural effusion. MEDIASTINUM AND HILAR STRUCTURES: No masses or contour abnormalities. HEART AND VASCULAR STRUCTURES: Heart normal size. No evidence for failure. BONES: No acute findings. HARDWARE: None in the chest. OTHER: No other significant finding. IMPRESSION: NO ACUTE RADIOGRAPHIC FINDING IN THE CHEST. TECHNICAL DOCUMENTATION: JOB ID: [id number] [employer]- All Rights Reserved Reading location - IP/workstation name: [email or web address]
[2017-09-30 20:04] VITALS: BP 118/63
== END 2017-09-30 20:06 | disposition home or self-care (01) ==
LOC: ER 17:41
DX: O26.891 Other specified pregnancy related conditions, first trimester (principal); R06.02 Shortness of breath; R09.81 Nasal congestion; R04.0 Epistaxis; O99.511 Diseases of the respiratory system complicating pregnancy, first trimester; J34.89 Other specified disorders of nose and nasal sinuses; Z3A.01 Less than 8 weeks gestation of pregnancy
CPT/HCPCS: 71046; 99285

== ENCOUNTER → 2017-10-08 | Outpatient (CLI) | payer MEDICAID ==
--- NOTE | 2017-10-08 15:54 | RADIOLOGY REPORT (SQ) ---
EXAM DESCRIPTION: U/S [id number] TRNABD 1GES W/ODOP COMPLETED DATE/TIME: 10/08/2017 3:30 pm REASON FOR STUDY: Z34.01 ENCNTR FOR SUPRVSN OF NORMAL FIRST PREG, FIRST TRIMESTER Z34.01 ENCNTR FOR SUPRVSN OF NORMAL FIRST PREG, FIRST TRIMES COMPARISON: None. TECHNIQUE: Transvaginal static and realtime grayscale images acquired of the pelvis. Additional kit cted spectral and color Doppler images recorded. All images stored on PACs. bHCG: Not available. CLINICAL DATES: SERGO. LIMITATIONS: None. FINDINGS: FETUS: Living intrauterine . ULTRASOUND EGA: 9 weeks 5 days ULTRASOUND SERGO: 05/08/2018 CRL: 2.9 cm FHR: 169 beats per minute. SUBCHORIONIC BLEED: No. SIZE OF BLEED: Not applicable. UTERUS: 2.4 x 4 cm fibroid. CERVICAL LENGTH: 3.1 cm. Closed. RIGHT ADNEXA: Normal ovary with normal vascular flow. No adnexal free fluid. Corpus Luteum measuring 4 cm. LEFT ADNEXA: Ovary not identified. No adnexal free fluid. No adnexal masses. FREE FLUID: None. OTHER: No other significant finding. IMPRESSION: LIVING INTRAUTERINE . EGA 9 weeks 5 days. Trimester of : First - 0 to 13 weeks. TECHNICAL DOCUMENTATION: JOB ID: [id number] [employer]- All Rights Reserved Reading location - IP/workstation name: [email or web address]
== END ==
LOC: RAD 14:18
PROVIDERS: ATTEND Nurse Practitioner
DX: Z34.01 Encounter for supervision of normal first pregnancy, first trimester (principal)
CPT/HCPCS: 76801

== ENCOUNTER 2017-10-27 12:54 | Emergency (ER) | payer BC, MEDICAID ==
--- NOTE | 2017-10-27 15:00 | ER Document Report ---
ED Medical Screen (RME) - General Chief Complaint: Urinary Problem Stated Complaint: URINARY PROBLEMS Time Seen by Provider: 10/27/17 14:44 Mode of Arrival: Ambulatory Information source: Patient TRAVEL OUTSIDE OF THE [place] IN LAST 30 DAYS: No - HPI Notes: 10/27/17 14:58 27-year-old black female currently 12 weeks 2 days presents with report of minimal vaginal spotting slight crampy pelvic pain. The patient was seen on 10/08/17 with a intrauterine and a 4 cm right corpus luteum cyst and no other abnormality. The patient was seen 2 days ago with rectal pain and constipation and received an enema and had a questionable UTI, although urine culture was negative. She was placed upon Keflex. She has very minimal suprapubic discomfort on exam which she describes as crampiness. No CVA tenderness. Plan Rh, pelvic exam, CBC UA and heart tones. Please see partner's note for continuation of care. - Related Data Allergies/Adverse Reactions: No Known Drug Allergies Allergy (Verified 10/27/17 12:57) pineapple [Pineapple] Allergy (Verified 10/27/17 12:57) Past Medical History - Social History Chew tobacco use (# tins/day): No Frequency of alcohol use: None Drug Abuse: None Family history: None Pulmonary Medical History: Reports: Hx Bronchitis Neurological Medical History: Reports: Hx Migraine Renal/ Medical History: Denies: Hx Peritoneal Dialysis Psychiatric Medical History: Reports: Hx Depression - Immunizations Hx Diphtheria, Pertussis, Tetanus Vaccination: Yes Physical Exam - Vital signs Vitals: Temp Pulse Resp BP Pulse Ox 98.0 F 86 18 126/61 H 99 10/27/17 13:16 10/27/17 13:16 10/27/17 13:16 10/27/17 13:16 10/27/17 13:16 Course - Vital Signs Vital signs: Temp Pulse Resp BP Pulse Ox 98.0 F 86 18 126/61 H 99 10/27/17 13:16 10/27/17 13:16 10/27/17 13:16 10/27/17 13:16 10/27/17 13:16
[2017-10-27 15:44] LABS: APPEARANCE,URINE CLOUDY; BILIRUBIN,URINE NEGATIVE (NEGATIVE); COLOR,URINE YELLOW; GLUCOSE, URINE NEGATIVE (NEGATIVE); KETONES,URINE NEGATIVE (NEGATIVE); LEUKOCYTE ESTERASE,URINE TRACE (NEGATIVE); NITRITE,URINE NEGATIVE (NEGATIVE); PROTEIN,URINE 30 mg/dL (NEGATIVE); URINE SPECIFIC GRAVITY 1.025; UROBILINOGEN,URINE NEGATIVE mg/dL (<2.0)
[2017-10-27 15:50] LABS: ABSOLUTE EOSINOPHILS # (AUTO) 0.1 10^3/uL (0.0-0.6); ABSOLUTE LYMPHOCYTES (AUTO) 1.2 10^3/uL (0.5-4.7); ABSOLUTE MONOCYTES (AUTO) 0.8 10^3/uL (0.1-1.4); ABSOLUTE NEUT (AUTO) 4.5 10^3/uL (1.7-8.2); BASOPHILS % (AUTO) 0.1 % (0-2); EOSINOPHILS % (AUTO) 1.5 % (0-6); HEMATOCRIT 37.5 % (36.0-47.0); HEMOGLOBIN 12.4 g/dL (12.0-15.5); LYMPHOCYTES % (AUTO) 17.6 % (13-45); MEAN CORPUSCULAR HEMOGLOBIN 27.8 pg (27.0-33.4); MEAN CORPUSCULAR HGB CONC 33.2 g/dL (32.0-36.0); MEAN CORPUSCULAR VOLUME 84 fl (80-97); MONOCYTES % (AUTO) 11.8 % (3-13); PLATELET COUNT 193 10^3/uL (150-450); RED BLOOD COUNT 4.48 10^6/uL (3.72-5.28); RED CELL DISTRIBUTION WIDTH 13.9 % (11.5-14.0); TOTAL CELLS COUNTED % (AUTO) 100 %; WHITE BLOOD COUNT 6.5 10^3/uL (4.0-10.5)
--- NOTE | 2017-10-27 16:41 | ER Document Report ---
ED General - General Chief Complaint: Urinary Problem Stated Complaint: URINARY PROBLEMS Time Seen by Provider: 10/27/17 14:44 Mode of Arrival: Ambulatory TRAVEL OUTSIDE OF THE [place] IN LAST 30 DAYS: No - HPI Patient complains to provider of: Hematuria Notes: Patient is currently states recent was here diagnosed a UTI continues to have always to be blood in her urine. Patient states also having some mild abdominal cramps. Patient is yet to follow-up with PATIENT SERVICES CLERK. Patient is a . Patient resting healthy upon my evaluation. Denies any fevers chills nausea vomiting diarrhea denies any trauma. - Related Data Allergies/Adverse Reactions: No Known Drug Allergies Allergy (Verified 10/27/17 12:57) pineapple [Pineapple] Allergy (Verified 10/27/17 12:57) Past Medical History - General Information source: Patient - Social History Smoking Status: Never Smoker Chew tobacco use (# tins/day): No Frequency of alcohol use: None Drug Abuse: None Family History: Reviewed & Not Pertinent Patient has suicidal ideation: No Patient has homicidal ideation: No Pulmonary Medical History: Reports: Hx Bronchitis Neurological Medical History: Reports: Hx Migraine Renal/ Medical History: Denies: Hx Peritoneal Dialysis Psychiatric Medical History: Reports: Hx Depression - Immunizations Hx Diphtheria, Pertussis, Tetanus Vaccination: Yes Review of Systems - Review of Systems Constitutional: No symptoms reported EENT: No symptoms reported Cardiovascular: No symptoms reported Respiratory: No symptoms reported Gastrointestinal: No symptoms reported Genitourinary: Hematuria Female Genitourinary: No symptoms reported Musculoskeletal: No symptoms reported Skin: No symptoms reported Hematologic/Lymphatic: No symptoms reported Neurological/Psychological: No symptoms reported -: Yes All other systems reviewed and negative Physical Exam - Vital signs Vitals: Temp Pulse Resp BP Pulse Ox 98.0 F 86 18 126/61 H 99 10/27/17 13:16 10/27/17 13:16 10/27/17 13:16 10/27/17 13:16 10/27/17 13:16 Interpretation: Normal - General General appearance: Appears well, Alert - HEENT Head: Normocephalic, Atraumatic Eyes: Normal Pupils: PERRL - Respiratory Respiratory status: No respiratory distress Chest status: Nontender Breath sounds: Normal Chest palpation: Normal - Cardiovascular Rhythm: Regular Heart sounds: Normal auscultation Murmur: No - Abdominal Inspection: Normal Distension: No distension Bowel sounds: Normal Tenderness: Nontender Organomegaly: No organomegaly - Back Back: Normal, Nontender - Extremities General upper extremity: Normal inspection, Nontender, Normal color, Normal ROM , Normal temperature General lower extremity: Normal inspection, Nontender, Normal color, Normal ROM , Normal temperature, Normal weight bearing. No: Benjamin's sign - Neurological Neuro grossly intact: Yes Cognition: Normal Orientation: AAOx4 Adriana Coma Scale Eye Opening: Spontaneous Adriana Coma Scale Verbal: Oriented Adriana Coma Scale Motor: Obeys Commands Bally Coma Scale Total: 15 Speech: Normal Motor strength normal: LUE, RUE, LLE, RLE Sensory: Normal - Psychological Associated symptoms: Normal affect, Normal mood - Skin Skin Temperature: Warm Skin Moisture: Dry Skin Color: Normal Course - Re-evaluation Re-evalutation: 10/27/17 21:31 Bedside ultrasound showed an IUP with approximately a heart rate of 162. Patient urinalysis does show signs of possible infection urine culture was sent. Patient's continue with the Keflex. Patient is to follow-up with PATIENT SERVICES CLERK. - Vital Signs Vital signs: Temp Pulse Resp BP Pulse Ox 98.0 F 86 12 116/63 100 10/27/17 17:40 10/27/17 17:40 10/27/17 17:40 10/27/17 17:40 10/27/17 17:40 - Laboratory Result Diagrams: 10/27/17 15:17 Laboratory results interpreted by me: 10/27/17 10/27/17 13:15 15:17 Beta HCG, Quant 02184.00 H Urine Protein 30 H Urine Blood LARGE H Ur Leukocyte Esterase TRACE H Urine Ascorbic Acid 40 H Discharge - Discharge Clinical Impression: Urinary tract infection Qualifiers: Urinary tract infection type: acute cystitis Hematuria presence: with hematuria Qualified Code(s): N30.01 - Acute cystitis with hematuria Qualifiers: Weeks of gestation: 12 weeks Qualified Code(s): Z3A.12 - 12 weeks gestation of Condition: Good Disposition: HOME, SELF-CARE Instructions: Bleeding During Early ([facility]), Urinary Tract Infection ( [facility]) Additional Instructions: Bedside ultrasound showed heart rate to be at 162-158. I do not see any critical pathology at this time. Would highly recommend she follow-up with your PATIENT SERVICES CLERK. Avoid placing anything inside the vagina no sex no toys no tampons return to ER symptoms worsen follow-up with your primary care physician. Your blood type is O+ Continue the antibiotics as patient prescribed for your urinary tract infection.
[2017-10-27 17:42] VITALS: BP 116/63
== END 2017-10-27 17:42 | disposition home or self-care (01) ==
LOC: ER 12:54
DX: O23.11 Infections of bladder in pregnancy, first trimester (principal); N30.01 Acute cystitis with hematuria; R10.9 Unspecified abdominal pain; Z3A.12 12 weeks gestation of pregnancy
CPT/HCPCS: 36415; 81001; 84702; 85025; 86900; 86901; 87086; 99283

== ENCOUNTER 2018-03-01 10:17 | Emergency (ER) | payer MEDICAID ==
[2018-03-01 10:27] VITALS: BP 134/74
[2018-03-01] MEDS ORDERED: LIDOCAINE 5% (700 MG) TRANSDERMAL ADH..PATCH TP ONE (10:44)
[2018-03-01] MEDS ORDERED: ACETAMINOPHEN 325 MG TABLET PO ONE (10:44)
--- NOTE | 2018-03-01 11:01 | ER Document Report ---
HPI - HPI Time Seen by Provider: 03/01/18 10:24 Pain Level: 3 Notes: Patient is a 27-year-old female who presents to the emergency department with complaints of left posterior shoulder pain. She states that she woke up with this about 3 days ago. She reports occasional numbness and tingling running from her trapezius muscle down into her arm. Patient is approximately 30 weeks . Patient denies any shortness of breath or chest pain. - REPRODUCTIVE Reproductive: REPORTS: : - MUSCULOSKELETAL Musculoskeletal: REPORTS: Extremity pain Past Medical History - General Information source: Patient - Social History Smoking Status: Never Smoker Chew tobacco use (# tins/day): No Frequency of alcohol use: None Drug Abuse: None Family History: Reviewed & Not Pertinent Patient has suicidal ideation: No Patient has homicidal ideation: No Pulmonary Medical History: Reports: Hx Bronchitis Neurological Medical History: Reports: Hx Migraine Renal/ Medical History: Denies: Hx Peritoneal Dialysis Psychiatric Medical History: Reports: Hx Depression - Immunizations Hx Diphtheria, Pertussis, Tetanus Vaccination: Yes Vertical Provider Document - CONSTITUTIONAL Notes: PHYSICAL EXAMINATION: GENERAL: Well-appearing, well-nourished and in no acute distress. HEAD: Atraumatic, normocephalic. EYES: Pupils equal round extraocular movements intact, conjunctiva are normal. ENT: Nares patent NECK: Normal range of motion LUNGS: No respiratory distress Musculoskeletal: Normal range of motion, tenderness to palpation along left trapezius muscle, normal motor and sensation distal to area of concern, cap refill less than 3 seconds, normal pulses. No vertebral tenderness or step-off noted. NEUROLOGICAL: Normal speech, normal gait. PSYCH: Normal mood, normal affect. SKIN: Warm, Dry, normal turgor, no rashes or lesions noted. - INFECTION CONTROL TRAVEL OUTSIDE OF THE [place] IN LAST 30 DAYS: No Course - Re-evaluation Re-evalutation: X-rays not indicated at this time as patient reports no injury to the area. Likely musculoskeletal strain of the trapezius muscle. Patient is 30 weeks which limits her treatment options. Patient will be given Tylenol 975 mg and Lidoderm patch and discharged home, she has OB follow-up on Friday. - Vital Signs Vital signs: Temp Pulse Resp BP Pulse Ox 97.9 F 105 H 16 134/74 H 98 03/01/18 10:24 03/01/18 10:24 03/01/18 10:24 03/01/18 10:24 03/01/18 10:24 Discharge - Discharge Clinical Impression: Trapezius muscle strain Qualifiers: Encounter type: initial encounter Laterality: left Qualified Code(s): S46.812A - Strain of other muscles, fascia and tendons at shoulder and upper arm level, left arm, initial encounter Condition: Stable Disposition: HOME, SELF-CARE Additional Instructions: Muscle Strain You have strained a muscle -- torn the fibers within the muscle. This often occurs with strenuous exertion, or during an injury that suddenly stretches the muscle. The seriousness of a strain varies. Some strains heal within days, others cause problems for months. X-rays cannot show a muscle strain. X-rays are taken only if symptoms suggest that a fracture could be present. The usual treatment of a muscle strain is rest and ice packs. Sometimes, a sling, splint, or crutches may be necessary to rest the muscle. The muscle can be used again once pain subsides. Severe strains require a special exercise and stretching program to prevent permanent stiffness and disability. Your doctor will advise you if this will be necessary. Call the doctor immediately if pain or swelling becomes severe, or if numbness or discoloration develop. Continue taking Tylenol 975 mg every 4 hours, do not exceed 4000 mg in 24 hours. Use the lidocaine patches as directed. Considering that you are we are unable to give you muscle relaxers or ibuprofen. Please utilize heat packs as well as stretching or massage. Keep your appointment that you have scheduled with OB for Friday, mentioned this to them to see if they have any other recommendations for you. Prescriptions: Lidocaine [Lidoderm 5% (700 mg) Transdermal Patch] 1 patch TP DAILY #30 adh..patch Referrals: LEXUS LOPEZ MD [Primary Care Provider] - Follow up as needed
== END 2018-03-01 11:20 | disposition home or self-care (01) ==
LOC: ER 10:17
DX: O9A.213 Injury, poisoning and certain other consequences of external causes complicating pregnancy, third trimester (principal); S29.012A Strain of muscle and tendon of back wall of thorax, initial encounter; X58.XXXA Exposure to other specified factors, initial encounter; O99.89 Other specified diseases and conditions complicating pregnancy, childbirth and the puerperium; M25.512 Pain in left shoulder; O26.893 Other specified pregnancy related conditions, third trimester; R20.2 Paresthesia of skin; R20.0 Anesthesia of skin; Z3A.30 30 weeks gestation of pregnancy
CPT/HCPCS: 99283; J3490 ×2

== ENCOUNTER 2018-04-27 01:25 | Inpatient (IN) | payer MEDICAID ==
[2018-04-27 02:03] LABS: APPEARANCE,URINE TURBID; BILIRUBIN,URINE NEGATIVE (NEGATIVE); COLOR,URINE YELLOW; GLUCOSE, URINE NEGATIVE (NEGATIVE); KETONES,URINE NEGATIVE (NEGATIVE); LEUKOCYTE ESTERASE,URINE MODERATE (NEGATIVE); NITRITE,URINE NEGATIVE (NEGATIVE); PROTEIN,URINE 30 mg/dL (NEGATIVE); UROBILINOGEN,URINE NEGATIVE mg/dL (<2.0)
[2018-04-27 02:27] LABS: URINE AMPHETAMINES SCREEN NEGATIVE; URINE BARBITURATES SCREEN NEGATIVE; URINE BENZODIAZEPINES SCREEN NEGATIVE; URINE COCAINE SCREEN NEGATIVE; URINE MARIJUANA (THC) SCREEN NEGATIVE; URINE METHADONE SCREEN NEGATIVE; URINE PHENCYCLIDINE SCREEN NEGATIVE
[2018-04-27] MEDS ORDERED: RINGERS SOLUTION,LACTATED 1,000 ML IV PRN (03:03)
[2018-04-27 03:31] LABS: ABSOLUTE EOSINOPHILS # (AUTO) 0.1 10^3/uL (0.0-0.6); ABSOLUTE LYMPHOCYTES (AUTO) 1.3 10^3/uL (0.5-4.7); ABSOLUTE MONOCYTES (AUTO) 0.9 10^3/uL (0.1-1.4); ABSOLUTE NEUT (AUTO) 3.8 10^3/uL (1.7-8.2); BASOPHILS % (AUTO) 0.3 % (0-2); HEMATOCRIT 36.1 % (36.0-47.0); HEMOGLOBIN 12.1 g/dL (12.0-15.5); LYMPHOCYTES % (AUTO) 21.6 % (13-45); MEAN CORPUSCULAR HEMOGLOBIN 27.8 pg (27.0-33.4); MEAN CORPUSCULAR HGB CONC 33.4 g/dL (32.0-36.0); MEAN CORPUSCULAR VOLUME 83 fl (80-97); MONOCYTES % (AUTO) 14.4 % (3-13); RED BLOOD COUNT 4.33 10^6/uL (3.72-5.28); RED CELL DISTRIBUTION WIDTH 15.2 % (11.5-14.0); SEGMENTED NEUTROPHILS % (AUTO) 62.7 % (42-78); TOTAL CELLS COUNTED % (AUTO) 100 %; WHITE BLOOD COUNT 6.1 10^3/uL (4.0-10.5)
[2018-04-27 03:51] LABS: PLATELET COUNT 99 10^3/uL (150-450)
[2018-04-27] MEDS ORDERED: LIDOCAINE 1% INJ-PF (10 MG/ML) 30 ML SDV ONE ×2 (03:52→11:31)
[2018-04-27] MEDS ORDERED: OXYTOCIN/NORMAL SALINE 20 UNIT/1,000 ML RTUINJ ONE (03:52)
[2018-04-27] MEDS ORDERED: MISOPROSTOL 0.2 MG TABLET ONE ×2 (03:52→11:30)
[2018-04-27] MEDS ORDERED: OXYTOCIN/NORMAL SALINE 20 UNIT/1,000 ML RTUINJ IV PRN ×2 (04:02→16:03)
--- NOTE | 2018-04-27 04:37 | Admission Physical ---
Datetime Report Generated by CPN: 04/27/2018 04:36 CURRENT ADMISSION Chief Complaint: Suspected Ruptured Membranes Indication for Induction: Not Applicable Admit Impression : Term, Intrauterine ; No Active Labor; Ruptured Membranes Admit Plan: Admit to Unit; Initiate Labor Protocol ALLERGIES Medication Allergies: No Medication Allergies: No Known Drug Allergies (04/27/2018); pineapple (04/27/2018) Latex: No Latex Allergies OBSTETRICAL HISTORY EDC: 05/08/2018 00:00 : 1 Para: 0 Term: 0 : 0 SAB: 0 IAB: 0 Ectopic: 0 Livin Cesareans: 0 VBACs: 0 Multiple Births: 0 Gestational Diabetes: No Rh Sensitization: No Incompetent Cervix: No CHUCKY: No Infertility: No ART Treatment: No Uterine Anomaly: No IUGR: No Hx Previous C/S: No Macrosomia: No Hx Loss/Stillborn: No PIH: No Hx : No Placenta Previa/Abruption: No Depression/PP Depression: No PTL/PROM: No Post Hemorrhage: No Current Procedures: Ultrasound; NST Obstetrical History Comments: G1- current SEE RECORDS Alcohol: No Marijuana : No Cocaine: No Other Illicit Drugs: No Cigarettes: Never Smoker. 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 Surgery: No Heart Disease: No Hosp/Surgery: No Autoimmune Disorder: No Anesthetic Complications: No Kidney Disease: No Abnormal Pap Smear: No Neuro/Epilepsy: No Psychiatric Disorders: No Other Medical Diseases: No Hepatitis/Liver Disease: No Significant Family History: No Varicosities/Phlebitis: No Trauma/Violence : No Thyroid Dysfunction: No INFECTIOUS HISTORY Gonorrhea: No Genital Herpes: No Chlamydia: No Tuberculosis: No Syphilis: No Hepatitis: No HIV/AIDS Exposure: No Rash or Viral Illness: No HPV: No PHYSICAL EXAM General: Normal HEENT: Normal Neurologic: Normal Thyroid: Normal Heart: Normal Lungs: Normal Breast: Normal Back: Normal Abdomen: Normal Genitourinary Exam: Normal Extremities: Normal DTRs: Normal Pelvic Type: Adequate Vital Signs: Reviewed; Within Normal Limits VAGINAL EXAM Dilatation: 1 Effacement: thick Station: -3 Contraction Comments: irregular MEMBRANES Pooling: Positive Ferning Results: Positive Membranes: Ruptured Amniotic Fluid Color: Clear FETUS A EGA: 38.3 Monitoring: External US FHR- Baseline: 140-150s Variability: Moderate 6-25bpm Accelerations: 15X15 Decelerations: None FHR Category: Category I Admit Comment: PROM at 0100--clear fluid; GBS Negative INFORMED CONSENT Signature: with User ID: [email or web address]
[2018-04-27] MEDS ORDERED: ONDANSETRON HCL INJ/PF 4 MG/2 ML SDV ONE ×2 (09:04→10:35)
[2018-04-27] MEDS ORDERED: FAMOTIDINE INJ/PF 20 MG/2 ML SDV IV ONE (10:35)
[2018-04-27] MEDS ORDERED: EPHEDRINE SULFATE INJ 50 MG/1 ML AMPULE ONE (11:30)
[2018-04-27] MEDS ORDERED: FENTANYL/BUPIVACAINE/NS/PF 300 MCG/150 ML RTUINJ EPI ONE (11:31)
[2018-04-27] MEDS ORDERED: BUPIVACAINE HCL 0.25 % INJ/PF (2.5 MG/1 ML) 30 ML VIAL ONE (11:31)
[2018-04-27] MEDS ORDERED: ACETAMINOPHEN 650 MG SUPP.RECT PR PRN (16:03)
[2018-04-27] MEDS ORDERED: DIBUCAINE 1% OINTMENT 56 GM TP PRN (16:03)
[2018-04-27] MEDS ORDERED: PSEUDOEPHEDRINE HCL 30 MG TABLET PO PRN (16:03)
[2018-04-27] MEDS ORDERED: MEASLES,MUMPS&RUBELLA VACC/PF 0.5 ML VIAL SUBCUT PRN (16:03)
[2018-04-27] MEDS ORDERED: GLYCERIN/WITCH HAZEL LEAF 1 EACH MED..PAD TP PRN (16:03)
[2018-04-27] MEDS ORDERED: PROMETHAZINE HCL 25 MG SUPP.RECT PR PRN (16:03)
[2018-04-27] MEDS ORDERED: DIPHENHYDRAMINE HCL 25 MG CAPSULE PO PRN (16:03)
[2018-04-27] MEDS ORDERED: DIPH/PERTUSS(ACELL)/TETANUS VAC/PF 0.5 ML SYR (>=10YO) IM PRN (16:03)
[2018-04-27] MEDS ORDERED: BENZOCAINE/MENTHOL AEROSOL SPRAY 56 ML TOP PRN (16:03)
[2018-04-27] MEDS ORDERED: MAGNESIUM HYDROXIDE SUSP 30 ML UDCUP PO PRN (16:03)
[2018-04-27] MEDS ORDERED: PROMETHAZINE HCL 25 MG TABLET PO PRN (16:03)
[2018-04-27] MEDS ORDERED: ACETAMINOPHEN WITH CODEINE #3 TABLET PO PRN (16:03)
[2018-04-27] MEDS ORDERED: PROMETHAZINE HCL INJ 25 MG/1 ML VIAL IV PRN (16:03)
[2018-04-27] MEDS ORDERED: ZOLPIDEM TARTRATE 5 MG TABLET PO PRN (16:03)
[2018-04-27] MEDS ORDERED: NA PHOS,M-B/NA PHOS,DI-BA (ADULT) 133 ML ENEMA PR PRN (16:03)
--- NOTE | 2018-04-27 17:33 | Delivery Summary ---
Del Sum A-C Datetime Report Generated by CPN: 04/27/2018 17:32 DELIVERY PERSONNEL DELIVERY PERSONNEL: [id number] Delivery Doctor:: Fannie Spear CNM Labor and Delivery Nurse:: Connie Hill RNflight service specialist Nurse:: Netta Verdugo RN Military Communications Specialist/BREAKER MACHINE TENDER: Claire Whiting, BLOWING ENGINEER MATERNAL INFORMATION Delivery Anesthesia: Epidural Medications After Delivery: Pitocin Bolus-Please Comment; Pitocin Drip 20 Units/1000ml NSS Meds After Delivery Comment: Pitocin 20 units in 1 L NS bolusing per order Maternal Complications: None LABOR SUMMARY EDC: 05/08/2018 00:00 No. Babies in Womb: 1 Attempted: No Labor Anesthesia: Epidural LABOR INFORMATION Reason for Induction: Premature Rupture of Membranes Onset of Labor: 04/27/2018 10:30 Complete Dilatation: 04/27/2018 13:25 Oxytocin: Induction Group B Beta Strep: Negative Antibiotics # of Doses: n/a Antibiotics Time of Last Dose: n/a Name of Antibiotic Given: n/a Steroids Given: None Reason Steroids Not Administered: Not Applicable MEMBRANES Membranes Rupture Method: Spontaneous Rupture of Membranes: 04/27/2018 01:00 Length of Rupture (hr): 14.65 Amniotic Fluid Color: Moderate Meconium Amniotic Fluid Amount: Small Amniotic Fluid Odor: Normal STAGES OF LABOR Stage 1 hr: 2 Stage 1 min: 55 Stage 2 hr: 2 Stage 2 min: 14 Stage 3 hr: 0 Stage 3 min: 6 Total Time in Labor hr: 5 Total Time in Labor min: 15 VAGINAL DELIVERY Episiotomy: None Laceration #1: Perineal Laceration Extension #1: Second Degree Sponge Count Correct: N/A Sharps Count Correct: N/A CSECTION DELIVERY Primary Indication: N/A Secondary Indication: N/A CSection Incidence: N/A Labor: N/A Elective: N/A CSection Incision: N/A BABY A INFORMATION Delivery Date/Time: 04/27/2018 15:39 Method of Delivery: Vaginal Born in Route : No : N/A Forceps: N/A Vacuum Extraction: N/A Shoulder Dystocia : No PRESENTATION/POSITION BABY A Presentation: Cephalic Cephalic Presentation: Vertex Vertex Position: Right Occipital Anterior Breech Presentation: N/A PLACENTA INFORMATION BABY A Placenta Delivery Time : 04/27/2018 15:45 Placenta Method of Delivery: Spontaneous (Annotations: Data stored by [facility] on behalf of user) Placenta Status: Delivered SCORES BABY A Heart Rate 1 min: >100 bpm Resp Effort 1 min: Slow, Irregular Reflex Irritability 1 min: Cough or Sneeze or Pulls Away Muscle Tone 1 min: Active Motion Color 1 min: Body Tama, Extremities Blue Resuscitation Effort 1 min: N/A SCORE 1 MIN: 8 Heart Rate 5 min: >100 bpm Resp Effort 5 min: Good Cry Reflex Irritability 5 min: Cough or Sneeze or Pulls Away Muscle Tone 5 min: Active Motion Color 5 min: Body Tama, Extremities Blue Resuscitation Effort 5 min: Tactile Stimulation SCORE 5 MIN: 9 INFORMATION BABY A Gestational Age at Delivery: 38.3 Gestational Status: Early Term- 37- 38.6 Weeks Outcome : Liveborn Condition : Stable Infant Sex: Male IDENTIFICATION BABY A Infant Verification Date/Time: 04/27/2018 17:24 ID Band Number: [id number] Mother's Name Verified: Yes Infant RN Verifying Infant: Julio Hill, RN WEIGHT/LENGTH BABY A Infant Birthweight (gm): 2929 Weight (lb): 6 Infant Weight (oz): 7 Infant Length (in): 20.00 Infant Length (cm): 50.80 CORD INFORMATION BABY A No. Cord Vessels: 3 Nuchal Cord : Around Neck x2, Loose Cord Blood Taken: Yes-For Eval (Mom's Blood Type - or O+) Infant Suction: Mouth; Nose ASSESSMENT BABY A Infant Complications: Multiple Variable Decels Physical Findings at Delivery: Within Normal Limits Infant Respirations: Appears Normal Skin to Skin: Yes Skin to Skin Time (min): 60 Research Laboratory Manager/ALS Called : No Infant Care By: Julio Hill RN Transferred To: Remains with Mother BABY B INFORMATION : N/A
[2018-04-27] MEDS ORDERED: PRENATAL VITAMIN W DHA CAPSULE PO ONE (17:43)
[2018-04-27] MEDS ORDERED: SENNOSIDES/DOCUSATE 8.6-50 MG 1 EACH TABLET ONE (17:44)
[2018-04-27] MEDS ORDERED: DOCUSATE SODIUM 100 MG CAPSULE ONE (17:44)
[2018-04-27] MEDS ORDERED: IBUPROFEN 800 MG TABLET ONE (17:44)
[2018-04-27] MEDS ORDERED: FERROUS SULFATE 325 MG TABLET PO ONE (17:44)
[2018-04-27] MEDS ORDERED: FAMOTIDINE 20 MG TABLET ONE (17:44)
[2018-04-27] MEDS: FERROUS SULFATE 325 MG TABLET PO SCH (17:45)
[2018-04-27] MEDS: DOCUSATE SODIUM 100 MG CAPSULE PO SCH (17:45)
[2018-04-27] MEDS: FAMOTIDINE 20 MG TABLET PO SCH (21:18)
[2018-04-27] MEDS: IBUPROFEN 800 MG TABLET PO SCH (21:18)
[2018-04-28] MEDS: IBUPROFEN 800 MG TABLET PO SCH ×3 (06:29→22:16)
[2018-04-28 06:55] LABS: HEMATOCRIT 32.5 % (36.0-47.0); HEMOGLOBIN 10.7 g/dL (12.0-15.5); MEAN CORPUSCULAR HEMOGLOBIN 27.6 pg (27.0-33.4); MEAN CORPUSCULAR HGB CONC 32.9 g/dL (32.0-36.0); MEAN CORPUSCULAR VOLUME 84 fl (80-97); PLATELET COUNT 112 10^3/uL (150-450); RED BLOOD COUNT 3.87 10^6/uL (3.72-5.28); RED CELL DISTRIBUTION WIDTH 15.4 % (11.5-14.0); WHITE BLOOD COUNT 11.4 10^3/uL (4.0-10.5)
[2018-04-28] MEDS: DOCUSATE SODIUM 100 MG CAPSULE PO SCH ×2 (09:12→18:29)
[2018-04-28] MEDS: FAMOTIDINE 20 MG TABLET PO SCH ×2 (09:17→22:19)
[2018-04-28] MEDS: PRENATAL VITAMIN W DHA CAPSULE PO SCH (09:17)
[2018-04-28] MEDS: FERROUS SULFATE 325 MG TABLET PO SCH ×2 (09:17→18:29)
[2018-04-28] MEDS: SENNOSIDES/DOCUSATE 8.6-50 MG 1 EACH TABLET PO SCH (09:18)
--- NOTE | 2018-04-28 13:49 | PDOC PROGRESS REPORT ---
Subjective-OB Progress Note for:: 04/28/18 Subjective: reports bleeding slowing, pain controlled with current meds. denies needs. Physical Exam (OB) Vital Signs: Temp Pulse Resp BP Pulse Ox 97.6 F 77 18 114/58 L 100 04/28/18 07:53 04/28/18 07:53 04/28/18 07:53 04/28/18 07:53 04/28/18 07:53 Intake & Output 04/27/18 04/28/18 04/29/18 06:59 06:59 06:59 Weight 121.6 kg - Abdomen Description: Soft Fundal Description: Firm, Midline Fundal Height: u/u - u/2 - Abdominal Distension: No distension Tenderness: Nontender - Extremities Lower extremities: Benjamin's sign - neg Calf: Normal, Nontender Objective-Diagnostic Laboratory: 04/28/18 06:42 04/28/18 06:42 WBC 11.4 H RBC 3.87 Hgb 10.7 L Hct 32.5 L MCV 84 MCH 27.6 MCHC 32.9 RDW 15.4 H Plt Count 112 L Assessment and Plan(PN) - Assessment and Plan (1) Normal vaginal delivery Is this a current diagnosis for this admission?: Yes (2) Obstetrical laceration, second degree Is this a current diagnosis for this admission?: Yes - Time Spent with Patient Time with patient: Less than 15 minutes Medications reviewed and adjusted accordingly: Yes - Disposition Anticipated Discharge: Home Within: within 24 hours
[2018-04-28] MEDS: ACETAMINOPHEN WITH CODEINE #3 TABLET PO PRN (14:39)
[2018-04-29] MEDS: ACETAMINOPHEN WITH CODEINE #3 TABLET PO PRN (06:17)
[2018-04-29] MEDS: IBUPROFEN 800 MG TABLET PO SCH ×2 (06:18→13:46)
--- NOTE | 2018-04-29 11:15 | PDOC DISCHARGE SUMMARY ---
Final Diagnosis Discharge Date: 04/29/18 - Final Diagnosis (1) Obstetrical laceration, second degree Is this a current diagnosis for this admission?: Yes (2) Normal vaginal delivery Is this a current diagnosis for this admission?: Yes (3) Acute blood loss anemia Is this a current diagnosis for this admission?: Yes (4) Thrombocytopenia affecting Is this a current diagnosis for this admission?: Yes Discharge Data - Discharge Medication Prescriptions: Ibuprofen [Motrin 800 mg Tablet] 800 mg PO Q8HP PRN #30 tablet PRN Reason: Docusate Sodium [Colace 100 mg Capsule] 100 mg PO BID #60 capsule Ferrous Sulfate [Feosol 325 mg Tablet] 325 mg PO BID #60 tablet Vit/Dha [ Multi + Dha Capsule] 1 cap PO DAILY #90 capsule Home Medications: Docusate Sodium [Colace 100 mg Capsule] 100 mg PO BID #60 capsule 04/29/18 Ferrous Sulfate [Feosol 325 mg Tablet] 325 mg PO BID #60 tablet 04/29/18 Ibuprofen [Motrin 800 mg Tablet] 800 mg PO Q8HP PRN #30 tablet 04/29/18 Vit/Dha [ Multi + Dha Capsule] 1 cap PO DAILY #90 capsule 04/29/18 Reason(s) for Admission: PROM Procedures: Ultrasound Intrapartum Procedure(s): Spontaneous Vaginal Delivery Complication(s): Laceration-Perineal Laceration-Degree: 2nd - Diagnosis Test Laboratory: Temp Pulse Resp BP Pulse Ox 98.0 F 76 16 117/67 100 04/29/18 07:42 04/29/18 07:42 04/29/18 07:42 04/29/18 07:42 04/29/18 07:42 04/27/18 04/27/18 04/28/18 01:32 03:13 06:42 RBC 4.33 3.87 Hgb 12.1 10.7 L Hct 36.1 32.5 L Urine Opiates Screen NEGATIVE - Discharge information/Instructions Discharge Activity: Activity As Tolerated, Balance Activity w/Rest, No Lifting Over 10 Pounds, No Lifting/Push/Pulling, Pelvic Rest, No tub bath, Walk Frequently Discharge Diet: As Tolerated, Regular Disposition: HOME, SELF-CARE Follow up with: [facility] in: 4, Weeks
[2018-04-29] MEDS: FAMOTIDINE 20 MG TABLET PO SCH (11:17)
[2018-04-29] MEDS: PRENATAL VITAMIN W DHA CAPSULE PO SCH (11:17)
[2018-04-29] MEDS: SENNOSIDES/DOCUSATE 8.6-50 MG 1 EACH TABLET PO SCH (11:17)
[2018-04-29] MEDS: DOCUSATE SODIUM 100 MG CAPSULE PO SCH (11:17)
[2018-04-29] MEDS: FERROUS SULFATE 325 MG TABLET PO SCH (11:17)
[2018-04-29 13:18] VITALS: BP 123/63
== END 2018-04-29 15:20 | disposition home or self-care (01) | DRG 806 ==
LOC: LC 01:25 → LR 02:46 → 2S 18:18
PROVIDERS: ADMIT Obstetrics & Gynecology; ATTEND Obstetrics & Gynecology
PROC: 10E0XZZ Delivery of Products of Conception, External Approach (ICD-10-PCS; principal; 2018-04-27)
DX: O77.0 Labor and delivery complicated by meconium in amniotic fluid (principal); O99.12 Other diseases of the blood and blood-forming organs and certain disorders involving the immune mechanism complicating childbirth; Z37.0 Single live birth; D62 Acute posthemorrhagic anemia; O70.1 Second degree perineal laceration during delivery; O69.81X0 Labor and delivery complicated by cord around neck, without compression, not applicable or unspecified; O76 Abnormality in fetal heart rate and rhythm complicating labor and delivery; D69.6 Thrombocytopenia, unspecified; O99.02 Anemia complicating childbirth; Z3A.38 38 weeks gestation of pregnancy
CPT/HCPCS: 36415; 80307; 81005; 84112; 85025; 85027; 86592; 86850; 86900; 86901; 88307; J2405; J2590; J3010; J3490; S0028

== ENCOUNTER 2018-10-27 16:44 | Emergency (ER) | payer MEDICAID ==
[2018-10-27] MEDS ORDERED: ONDANSETRON 4 MG TAB.RAPDIS PO ONE (17:42)
--- NOTE | 2018-10-27 17:44 | ER Document Report ---
ED Medical Screen (RME) - General Chief Complaint: Dizziness Stated Complaint: DIZZINESS Time Seen by Provider: 10/27/18 17:39 Mode of Arrival: Ambulatory Information source: Patient Notes: Patient is an otherwise healthy 28-year-old female presenting to the emergency department chief complaint of dizziness and nausea. Patient reports the nausea started a few days ago and the dizziness started today. She denies a feeling of the room spinning but rather states it is a generalized lightheadedness. She has not fallen or passed out. Exam: Patient alert, oriented, answering all questions appropriately. No focal neurological deficits noted. Lung sounds clear and equal bilaterally. I have greeted and performed a rapid initial assessment of this patient. A comprehensive ED assessment and evaluation of the patient, analysis of test results and completion of the medical decision making process will be conducted by additional ED providers. I have specifically instructed the patient or family members with the patient to immediately return to any nursing staff should anything change in the patient's condition or with their chief complaint. This medical record was dictated with voice recognizing software. There may be grammatical, syntax errors that are unintended. TRAVEL OUTSIDE OF THE [place] IN LAST 30 DAYS: No - Related Data Allergies/Adverse Reactions: No Known Drug Allergies Allergy (Verified 10/27/18 16:46) pineapple [Pineapple] Allergy (Verified 10/27/18 16:46) Past Medical History - Social History Family history: None Pulmonary Medical History: Reports: Hx Bronchitis Neurological Medical History: Reports: Hx Migraine Renal/ Medical History: Denies: Hx Peritoneal Dialysis Psychiatric Medical History: Reports: Hx Depression - Immunizations Hx Diphtheria, Pertussis, Tetanus Vaccination: Yes Physical Exam - Vital signs Vitals: Temp Pulse Resp BP Pulse Ox 99.1 F 72 16 123/66 100 10/27/18 17:00 10/27/18 17:00 10/27/18 17:00 10/27/18 17:00 10/27/18 17:00 Course - Vital Signs Vital signs: Temp Pulse Resp BP Pulse Ox 99.1 F 72 16 123/66 100 10/27/18 17:00 10/27/18 17:00 10/27/18 17:00 10/27/18 17:00 10/27/18 17:00
[2018-10-27 18:41] LABS: ABSOLUTE EOSINOPHILS # (AUTO) 0.1 10^3/uL (0.0-0.6); ABSOLUTE LYMPHOCYTES (AUTO) 1.8 10^3/uL (0.5-4.7); ABSOLUTE MONOCYTES (AUTO) 0.5 10^3/uL (0.1-1.4); ABSOLUTE NEUT (AUTO) 2.8 10^3/uL (1.7-8.2); BASOPHILS % (AUTO) 0.6 % (0-2); EOSINOPHILS % (AUTO) 1.5 % (0-6); HEMATOCRIT 39.7 % (36.0-47.0); HEMOGLOBIN 13.3 g/dL (12.0-15.5); LYMPHOCYTES % (AUTO) 34.4 % (13-45); MEAN CORPUSCULAR HEMOGLOBIN 27.2 pg (27.0-33.4); MEAN CORPUSCULAR HGB CONC 33.4 g/dL (32.0-36.0); MEAN CORPUSCULAR VOLUME 82 fl (80-97); MONOCYTES % (AUTO) 9.4 % (3-13); PLATELET COUNT 193 10^3/uL (150-450); RED BLOOD COUNT 4.88 10^6/uL (3.72-5.28); RED CELL DISTRIBUTION WIDTH 13.6 % (11.5-14.0); SEGMENTED NEUTROPHILS % (AUTO) 54.1 % (42-78); TOTAL CELLS COUNTED % (AUTO) 100 %; WHITE BLOOD COUNT 5.3 10^3/uL (4.0-10.5)
[2018-10-27 18:58] LABS: AMORPHOUS SEDIMENT,URINE TRACE /HPF; APPEARANCE,URINE SLIGHTLY-CLOUDY; BILIRUBIN,URINE NEGATIVE (NEGATIVE); COLOR,URINE YELLOW; GLUCOSE, URINE NEGATIVE (NEGATIVE); KETONES,URINE NEGATIVE (NEGATIVE); LEUKOCYTE ESTERASE,URINE MODERATE (NEGATIVE); NITRITE,URINE NEGATIVE (NEGATIVE); PROTEIN,URINE NEGATIVE (NEGATIVE); URINE SPECIFIC GRAVITY 1.015; UROBILINOGEN,URINE NEGATIVE mg/dL (<2.0)
[2018-10-27 19:00] LABS: ALBUMIN 4.4 g/dL (3.5-5.0); ALKALINE PHOSPHATASE 50 U/L (38-126); ANION GAP 10 (5-19); ASPARTATE AMINO TRANSFERASE 19 U/L (14-36); BILIRUBIN,DIRECT 0.1 mg/dL (0.0-0.4); BILIRUBIN,TOTAL 0.3 mg/dL (0.2-1.3); BLOOD UREA NITROGEN 12 mg/dL (7-20); CALCIUM 9.6 mg/dL (8.4-10.2); CARBON DIOXIDE 21 mmol/L (22-30); CHLORIDE 104 mmol/L (98-107); GLUCOSE 84 mg/dL (75-110); POTASSIUM 3.8 mmol/L (3.6-5.0); TOTAL PROTEIN 8.2 g/dL (6.3-8.2)
--- NOTE | 2018-10-27 21:03 | ER Document Report ---
ED General - General Chief Complaint: Dizziness Stated Complaint: DIZZINESS Time Seen by Provider: 10/27/18 17:39 Mode of Arrival: Ambulatory Notes: Patient is a 28-year-old G1, P1 female who presents to the emergency department with a chief complaint of dizziness and nausea. Patient reports last night she became nauseous without vomiting. Patient states today she has been dizzy. Patient denies headache. Patient states she has not had any diarrhea or abdominal pain. Patient denies pelvic cramping. Patient denies vaginal bleeding or discharge. Patient denies fever. Patient reports her last menstrual cycle was at the end of August, estimating around September 15. Patient states she has not taken any home test. Patient reports urinary frequency. TRAVEL OUTSIDE OF THE [place] IN LAST 30 DAYS: No - Related Data Allergies/Adverse Reactions: No Known Drug Allergies Allergy (Verified 10/27/18 16:46) pineapple [Pineapple] Allergy (Verified 10/27/18 16:46) Past Medical History - General Information source: Patient - Social History Smoking Status: Never Smoker Chew tobacco use (# tins/day): No Frequency of alcohol use: None Drug Abuse: None Lives with: Spouse/Significant other Family History: Reviewed & Not Pertinent Patient has suicidal ideation: No Patient has homicidal ideation: No - Past Medical History Cardiac Medical History: Reports: None Pulmonary Medical History: Reports: Hx Bronchitis EENT Medical History: Reports: None Neurological Medical History: Reports: Hx Migraine Endocrine Medical History: Reports: None Renal/ Medical History: Reports: None. Denies: Hx Peritoneal Dialysis Malignancy Medical History: Reports: None GI Medical History: Reports: None Musculoskeletal Medical History: Reports None Skin Medical History: Reports None Psychiatric Medical History: Reports: Hx Depression Traumatic Medical History: Reports: None Infectious Medical History: Reports: None Surgical Hx: Negative - Immunizations Hx Diphtheria, Pertussis, Tetanus Vaccination: Yes Review of Systems - Review of Systems Constitutional: See HPI EENT: No symptoms reported Cardiovascular: See HPI Respiratory: No symptoms reported Gastrointestinal: See HPI Genitourinary: See HPI Female Genitourinary: See HPI Musculoskeletal: No symptoms reported Skin: No symptoms reported Hematologic/Lymphatic: No symptoms reported Neurological/Psychological: No symptoms reported Physical Exam - Vital signs Vitals: Temp Pulse Resp BP Pulse Ox 99.1 F 72 16 123/66 100 10/27/18 17:00 10/27/18 17:00 10/27/18 17:00 10/27/18 17:00 10/27/18 17:00 Interpretation: Normal - Notes Notes: GENERAL: Well-appearing, well-nourished and in no acute distress. HEAD: Atraumatic, normocephalic. EYES: Pupils equal round and reactive to light, extraocular movements intact, sclera anicteric, conjunctiva are normal. ENT: TMs normal, nares patent, oropharynx clear without exudates. Moist mucous membranes. NECK: Normal range of motion, supple without lymphadenopathy or JVD. LUNGS: Breath sounds clear to auscultation bilaterally and equal. No wheezes rales or rhonchi. HEART: Regular rate and rhythm without murmurs, rubs or gallops. ABDOMEN: Soft, nontender, normoactive bowel sounds. No guarding, no rebound. No masses appreciated. BACK: No cervical, thoracic, lumbar midline tenderness. No saddle anesthesia, normal distal neurovascular exam. No CVA tenderness. GENITOURINARY: Deferred. EXTREMITIES: Normal range of motion, no pitting or edema. No clubbing or cyanosis. NEUROLOGICAL: Cranial nerves II through XII grossly intact. Normal speech, normal gait. PSYCH: Normal mood, normal affect. SKIN: Warm, Dry, normal turgor, no rashes or lesions noted. Course - Re-evaluation Re-evalutation: 10/27/18 22:44 Patient does have a moderate amount of leuks in the urine with a very small amount of white blood cells. Due to the patient's report of urinary frequency I have also ordered a urine culture and we will treat the patient for urinary tract infection. - Vital Signs Vital signs: Temp Pulse Resp BP Pulse Ox 97.9 F 72 12 133/71 H 100 10/27/18 21:45 10/27/18 21:45 10/27/18 21:45 10/27/18 21:45 10/27/18 21:45 - Laboratory Result Diagrams: 10/27/18 18:13 10/27/18 18:13 Laboratory results interpreted by me: 10/27/18 10/27/18 10/27/18 18:13 18:13 18:13 Sodium 135.3 L Carbon Dioxide 21 L Beta HCG, Quant 25988.00 H Ur Leukocyte Esterase MODERATE H Urine HCG, Qual POSITIVE H 10/27/18 22:43 Patient does not have a leukocytosis or anemia. Patient does not have her alteration in her electrolytes were kidney function, liver function. Patient's serum quant was positive at 17,234. Patient does have a moderate amount of leuks in the urine. Laboratory 10/27/18 10/27/18 10/27/18 18:13 18:13 18:13 WBC 5.3 RBC 4.88 Hgb 13.3 Hct 39.7 MCV 82 MCH 27.2 MCHC 33.4 RDW 13.6 Plt Count 193 Lymph % (Auto) 34.4 Vigo % (Auto) 9.4 Eos % (Auto) 1.5 Baso % (Auto) 0.6 Absolute Neuts (auto) 2.8 Absolute Lymphs (auto) 1.8 Absolute Monos (auto) 0.5 Absolute Eos (auto) 0.1 Absolute Basos (auto) 0.0 Seg Neutrophils % 54.1 Sodium 135.3 L Potassium 3.8 Chloride 104 Carbon Dioxide 21 L Anion Gap 10 BUN 12 Creatinine 0.55 Est GFR ( Amer) > 60 Est GFR (MDRD) Non-Af > 60 Glucose 84 Calcium 9.6 Total Bilirubin 0.3 Direct Bilirubin 0.1 Neonat Total Bilirubin Not Reportable Neonat Direct Bilirubin Not Reportable Neonat Indirect Bili Not Reportable AST 19 ALT 16 Alkaline Phosphatase 50 Total Protein 8.2 Albumin 4.4 Beta HCG, Quant Total Beta HCG Urine Color YELLOW Urine Appearance SLIGHTLY-CLOUDY Urine pH 6.0 Ur Specific [place] 1.015 Urine Protein NEGATIVE Urine Glucose (UA) NEGATIVE Urine Ketones NEGATIVE Urine Blood NEGATIVE Urine Nitrite NEGATIVE Urine Bilirubin NEGATIVE Urine Urobilinogen NEGATIVE Ur Leukocyte Esterase MODERATE H Urine WBC (Auto) 3 Urine RBC (Auto) 1 Squamous Epi Cells Auto 9 Amorphous Sediment Auto TRACE Urine Mucus (Auto) RARE Urine Ascorbic Acid NEGATIVE Urine HCG, Qual POSITIVE H 10/27/18 18:13 WBC RBC Hgb Hct MCV MCH MCHC RDW Plt Count Lymph % (Auto) Vigo % (Auto) Eos % (Auto) Baso % (Auto) Absolute Neuts (auto) Absolute Lymphs (auto) Absolute Monos (auto) Absolute Eos (auto) Absolute Basos (auto) Seg Neutrophils % Sodium Potassium Chloride Carbon Dioxide Anion Gap BUN Creatinine Est GFR ( Amer) Est GFR (MDRD) Non-Af Glucose Calcium Total Bilirubin Direct Bilirubin Neonat Total Bilirubin Neonat Direct Bilirubin Neonat Indirect Bili AST ALT Alkaline Phosphatase Total Protein Albumin Beta HCG, Quant 68237.00 H Total Beta HCG POSITIVE Urine Color Urine Appearance Urine pH Ur Specific Rad[place] Urine Protein Urine Glucose (UA) Urine Ketones Urine Blood Urine Nitrite Urine Bilirubin Urine Urobilinogen Ur Leukocyte Esterase Urine WBC (Auto) Urine RBC (Auto) Squamous Epi Cells Auto Amorphous Sediment Auto Urine Mucus (Auto) Urine Ascorbic Acid Urine HCG, Qual - Diagnostic Test Radiology reviewed: Reports reviewed Radiology results interpreted by me: 10/27/18 23:50 Transvaginal US 10/27/18 21:05 IMPRESSION: 1. Twin with 2 adjacent intrauterine gestational sacs corresponding to 6 weeks 2 days of . No pole is seen at this time. 2. Fibroid uterus. 3. 2.4 cm likely corpus luteum left ovarian cyst and 2.2 cm likely simple right ovarian cyst. Discharge - Discharge Clinical Impression: Dizziness, Nausea, Urinary frequency Qualifiers: Weeks of gestation: less than 8 weeks Qualified Code(s): Z3A.01 - Less than 8 weeks gestation of Condition: Stable Disposition: HOME, SELF-CARE Additional Instructions: Today you are seen in the emergency department for dizziness and nausea. From the blood work we did find out that you are . The ultrasound did confirm that you have a twin with 2 intrauterine gestational sacs corresponding to about 6 weeks and 2 days of . It also noted that you do have a fibroid uterus which you were aware of. And two small ovarian cysts o ne on the left and one on the right. Please call [facility] tomorrow to make an appointment and establish care. Use Tylenol as needed for pain. Please refrain from Motrin or other NSAIDs as you cannot take this while . Do not smoke, drink alcohol or use any recreational drugs. Please start using a vitamin. You do have some bacteria in the urine and since you are having urinary frequency I will go ahead and treat you with Keflex. Keflex is an antibiotic that you will take twice a day for 5 days. You have received your first dose here in the emergency department. This antibiotic is okay for the babies. Please return to the emergency department if you develop abdominal pain, fever, vaginal bleeding, severe abdominal cramping or any other concerning signs or symptoms. Prescriptions: Cephalexin Monohydrate [Keflex 500 mg Capsule] 500 mg PO BID 5 Days #10 capsule
--- NOTE | 2018-10-27 23:41 | RADIOLOGY REPORT (SQ) ---
US PELVIS EXAM DATE: 10/27/2018 9:05 PM CDT HISTORY: Early . Pelvic pain. COMPARISON: None. TECHNIQUE: Grayscale, color Doppler, and spectral Doppler ultrasound images of the pelvis were obtained. FINDINGS: There are 2 intrauterine gestational sacs with diameters measuring 1.51 cm and 1.35 cm. This corresponds to 6 weeks 2 days of . The cervix measures 4.6 cm in length. There is a 3.9 cm fibroid in the posterior uterine segment and adjacent 3.4 cm fibroid as well as a 2.2 cm fibroid in the anterior segment. Right ovary measures 4.2 cm and the left ovary measures 4.1 cm. Normal color Doppler blood flow is seen in both ovaries. There is a 2.2 cm likely involuting corpus luteum cyst in the left ovary. There is also a 2.3 cm anechoic cyst in the right ovary. IMPRESSION: 1. Twin with 2 adjacent intrauterine gestational sacs corresponding to 6 weeks 2 days of . No pole is seen at this time. 2. Fibroid uterus. 3. 2.4 cm likely corpus luteum left ovarian cyst and 2.2 cm likely simple right ovarian cyst.
[2018-10-27] MEDS ORDERED: CEPHALEXIN 500 MG CAPSULE PO ONE (23:50)
[2018-10-27 23:54] VITALS: BP 119/95
== END 2018-10-27 23:55 | disposition home or self-care (01) ==
LOC: ER 16:44
DX: O26.891 Other specified pregnancy related conditions, first trimester (principal); R42 Dizziness and giddiness; R11.0 Nausea; R35.0 Frequency of micturition; O34.11 Maternal care for benign tumor of corpus uteri, first trimester; D25.9 Leiomyoma of uterus, unspecified; O30.001 Twin pregnancy, unspecified number of placenta and unspecified number of amniotic sacs, first trimester; Z3A.01 Less than 8 weeks gestation of pregnancy; Z91.018 Allergy to other foods
CPT/HCPCS: 36415; 87086; 84702; 85025; 81025; 87088; 80053; 81001; 87186; 76817; 93976; S0119; 99284

== ENCOUNTER 2019-01-31 11:10 | Emergency (ER) | payer MEDICAID ==
[2019-01-31 11:30] VITALS: BP 117/66
--- NOTE | 2019-01-31 12:46 | ER Document Report ---
HPI - HPI Time Seen by Provider: 01/31/19 12:31 Pain Level: 4 Notes: Otherwise healthy 28-year-old female presents emergency department with chief complaint of pain in her left lumbar area that radiates down the back of her leg. Patient denies any direct trauma. She states this is been going on for several days. She denies any heavy lifting. She is . She denies any abdominal pain, nausea, vomiting, diarrhea, vaginal bleeding or dysuria. She reports the pain is worse with movement. - REPRODUCTIVE Reproductive: REPORTS: : Past Medical History - General Information source: Patient - Social History Smoking Status: Never Smoker Frequency of alcohol use: None Drug Abuse: None Family History: Reviewed & Not Pertinent Patient has suicidal ideation: No Patient has homicidal ideation: No Pulmonary Medical History: Reports: Hx Bronchitis Neurological Medical History: Reports: Hx Migraine Renal/ Medical History: Denies: Hx Peritoneal Dialysis Psychiatric Medical History: Reports: Hx Depression - Immunizations Hx Diphtheria, Pertussis, Tetanus Vaccination: Yes Vertical Provider Document - CONSTITUTIONAL Notes: PHYSICAL EXAMINATION: GENERAL: Well-appearing, well-nourished and in no acute distress. HEAD: Atraumatic, normocephalic. EYES: Pupils equal round and reactive to light, extraocular movements intact, conjunctiva are normal. ENT: Nares patent, oropharynx clear without exudates. Moist mucous membranes. NECK: Normal range of motion, supple without lymphadenopathy LUNGS: Breath sounds clear to auscultation bilaterally and equal. No wheezes rales or rhonchi. HEART: Regular rate and rhythm without murmurs ABDOMEN: Soft, nontender, nondistended abdomen. No guarding, no rebound. No masses appreciated. Female : deferred Musculoskeletal: Normal range of motion, no pitting or edema. No cyanosis. Tenderness to palpation to right lumbar paraspinous area, no vertebral tenderness, step-off or deformity. NEUROLOGICAL: Cranial nerves grossly intact. Normal speech, normal gait. Normal sensory, motor exams PSYCH: Normal mood, normal affect. SKIN: Warm, Dry, normal turgor, no rashes or lesions noted. - INFECTION CONTROL TRAVEL OUTSIDE OF THE [place] IN LAST 30 DAYS: No Course - Re-evaluation Re-evalutation: Patient appears well, nontoxic, vital signs within normal limits. Physical examination most consistent with sciatica. No indication for further work-up at this time. Patient is so she will be prescribed hydrocodone. Unfortunately all muscle relaxers are contraindicated in so I cannot prescribe this for her. Encourage patient to do conservative treatment at home and follow-up with her [employer]. Patient and spouse at bedside verbalized understanding and agreement with this plan. - Vital Signs Vital signs: Temp Pulse Resp BP Pulse Ox 97.2 F 86 18 117/66 98 01/31/19 12:30 01/31/19 12:30 01/31/19 12:30 01/31/19 12:30 01/31/19 12:30 Discharge - Discharge Clinical Impression: Sciatica Qualifiers: Laterality: right Qualified Code(s): M54.31 - Sciatica, right side Condition: Stable Disposition: HOME, SELF-CARE Additional Instructions: Sciatica Your symptoms suggest "sciatica." The pain of sciatica typically radiates down the leg. Numbness in the foot or calf may also occur. Sciatica is caused by irritation of the sciatic nerve or its branches. The irritation can be due to a herniated disk in the spine, swelling and inflammation in the muscles surrounding the sciatic nerve, or direct injury of the nerve itself. Most cases of sciatica will resolve with medical treatment. Bed rest is usually recommended initially. Surgery is only necessary when the condition will not improve with rest and antiinflammatory medication. Muscle relaxers are often given if muscle soreness is present. A CAT scan of the back may be performed if a herniated disk is suspected. Re-examination is necessary if you develop increasing numbness, localized weakness in the foot or ankle, or if the pain does not respond to rest. Please take medications as prescribed. You may take 1 to 2 tablets of the hydrocodone every 4 hours. Please call your [employer] [employer] WORK[facility] to schedule a follow-up appointment. Let them know you are seen here and diagnosed with sciatica. Return to the emergency department with any new or worsening symptoms as outlined above. Prescriptions: Hydrocodone Bit/Acetaminophen [Hydrocodon-Acetaminophen 5-325] 1 each PO Q4H #12 tablet Referrals: LEXUS LOPEZ MD [Primary Care Provider] - Follow up as needed
== END 2019-01-31 12:50 | disposition home or self-care (01) ==
LOC: ER 11:10
DX: O26.892 Other specified pregnancy related conditions, second trimester (principal); M54.31 Sciatica, right side; Z3A.19 19 weeks gestation of pregnancy
CPT/HCPCS: 99283

== ENCOUNTER 2019-03-05 15:17 | Emergency (ER) | payer MEDICAID ==
[2019-03-05] MEDS ORDERED: ACETAMINOPHEN 325 MG TABLET PO ONE (15:42)
[2019-03-05] MEDS ORDERED: DIPHENHYDRAMINE HCL 50 MG/ML VIAL IV ONE (18:52)
[2019-03-05] MEDS ORDERED: METOCLOPRAMIDE HCL INJ/PF 10 MG/2 ML SDV IV ONE (18:52)
[2019-03-05] MEDS ORDERED: NORMAL SALINE 1000 ML 1,000 ML IV ONE (18:52)
[2019-03-05 19:29] LABS: ANION GAP 10 (5-19); BLOOD UREA NITROGEN 4 mg/dL (7-20); CALCIUM 8.4 mg/dL (8.4-10.2); CARBON DIOXIDE 20 mmol/L (22-30); CHLORIDE 104 mmol/L (98-107); GLUCOSE 79 mg/dL (75-110); POTASSIUM 3.5 mmol/L (3.6-5.0)
--- NOTE | 2019-03-05 21:59 | ER Document Report ---
ED General - General Chief Complaint: Headache Stated Complaint: HEADACHE Time Seen by Provider: 03/05/19 15:38 Primary Care Provider: LEXUS LOPEZ MD [Primary Care Provider] - Follow up as needed Notes: Patient is a 28-year-old female who comes in with sore throat and headache. Unsure fever at home. Took Tylenol prior to arrival. Patient is 24 weeks . No abdominal pain, cramping, dysuria, or bleeding. Patient's followed up with women[facility]. TRAVEL OUTSIDE OF THE [place] IN LAST 30 DAYS: No - Related Data Allergies/Adverse Reactions: pineapple [Pineapple] Allergy (Verified 03/05/19 15:36) Past Medical History - Social History Smoking Status: Never Smoker Family History: Reviewed & Not Pertinent Patient has suicidal ideation: No Patient has homicidal ideation: No Pulmonary Medical History: Reports: Hx Bronchitis Neurological Medical History: Reports: Hx Migraine Renal/ Medical History: Denies: Hx Peritoneal Dialysis Psychiatric Medical History: Reports: Hx Depression - Immunizations Hx Diphtheria, Pertussis, Tetanus Vaccination: Yes Review of Systems - Review of Systems -: Yes All other systems reviewed and negative Physical Exam - Vital signs Vitals: Temp Pulse Resp BP Pulse Ox 97.6 F 111 H 18 140/68 H 98 03/05/19 15:24 03/05/19 15:24 03/05/19 15:24 03/05/19 15:24 03/05/19 15:24 Interpretation: Normal - General General appearance: Alert Notes: Appears uncomfortable - HEENT Head: Normocephalic, Atraumatic Eyes: Normal Pupils: PERRL Mucous membranes: Dry - Respiratory Respiratory status: No respiratory distress Chest status: Nontender Breath sounds: Normal Chest palpation: Normal - Cardiovascular Rhythm: Regular Heart sounds: Normal auscultation Murmur: No - Abdominal Inspection: Normal, Gravid female Distension: No distension Bowel sounds: Normal Tenderness: Nontender Organomegaly: No organomegaly - Back Back: Normal, Nontender - Extremities General upper extremity: Normal inspection, Nontender, Normal color, Normal ROM, Normal temperature General lower extremity: Normal inspection, Nontender, Normal color, Normal ROM, Normal temperature, Normal weight bearing. No: Benjamin's sign - Neurological Neuro grossly intact: Yes Cognition: Normal Orientation: AAOx4 Adriana Coma Scale Eye Opening: Spontaneous Olmito Coma Scale Verbal: Oriented Adriana Coma Scale Motor: Obeys Commands Adriana Coma Scale Total: 15 Speech: Normal Motor strength normal: LUE, RUE, LLE, RLE Sensory: Normal - Psychological Associated symptoms: Normal affect, Normal mood - Skin Skin Temperature: Warm Skin Moisture: Dry Skin Color: Normal Course - Re-evaluation Re-evalutation: 03/05/19 22:27 Patient feels better after medications for her headache. No fever here. Rapid strep negative. On the likely strep and more likely variant of influenza. Patient does not want Tamiflu. Blood pressure downtrending after headache was treated. No evidence for preeclampsia and given that patient is 24 weeks , this is unlikely. heart tones 160. No evidence for threatened miscarriage. Follow-up with [facility] OPERATOR and return if worsening concerning symptoms. Understands and agrees with plan. Stable for discharge. - Vital Signs Vital signs: Temp Pulse Resp BP Pulse Ox 98.3 F 94 18 132/56 H 98 03/05/19 22:21 03/05/19 22:21 03/05/19 22:21 03/05/19 22:21 03/05/19 22:21 - Laboratory Result Diagrams: 03/05/19 18:52 Laboratory results interpreted by me: 03/05/19 03/05/19 18:52 18:52 Sodium 133.6 L Potassium 3.5 L Carbon Dioxide 20 L BUN 4 L Serum HCG, Qual POSITIVE H Discharge - Discharge Clinical Impression: Flu-like symptoms Qualifiers: Weeks of gestation: 24 weeks Qualified Code(s): Z3A.24 - 24 weeks gestation of Headache Qualifiers: Headache type: unspecified Headache chronicity pattern: acute headache Intractability: not intractable Qualified Code(s): R51 - Headache Condition: Stable Disposition: HOME, SELF-CARE Instructions: Headache ([facility]), Viral Syndrome ([facility]) Prescriptions: Ondansetron [Zofran Odt 4 mg Tablet] 1 tab PO Q6HP PRN #15 tab.rapdis PRN Reason: For Nausea/Vomiting Metoclopramide HCl [Reglan 10 mg Tablet] 1 - 2 tab PO ASDIR PRN #25 tablet PRN Reason: Referrals: LEXUS LOPEZ MD [Primary Care Provider] - 03/09/19
[2019-03-05 22:22] VITALS: BP 132/56
[2019-03-09 23:36] LABS: INFLUENZA A AB (SERUM) CF 1:16 (Neg:<1:8)
[2019-03-10 08:24] LABS: INFLUENZA B AB (SERUM) CF 1:16 (Neg:<1:8)
== END 2019-03-05 22:40 | disposition home or self-care (01) ==
LOC: ER 15:17
DX: O98.512 Other viral diseases complicating pregnancy, second trimester (principal); J11.1 Influenza due to unidentified influenza virus with other respiratory manifestations; R51 Headache; Z3A.24 24 weeks gestation of pregnancy
CPT/HCPCS: 99284; 96361; 96374; 96375; 36415; 87070; 86710 ×2; 87880; 84703; 80048; J3490; J1200; J2765; J7030

== ENCOUNTER 2019-06-04 04:35 | Inpatient (IN) | payer MEDICAID ==
[2019-05-31 09:20] LABS: ABSOLUTE EOSINOPHILS # (AUTO) 0.1 10^3/uL (0.0-0.6); ABSOLUTE LYMPHOCYTES (AUTO) 1.5 10^3/uL (0.5-4.7); ABSOLUTE MONOCYTES (AUTO) 0.7 10^3/uL (0.1-1.4); ABSOLUTE NEUT (AUTO) 3.3 10^3/uL (1.7-8.2); BASOPHILS % (AUTO) 0.2 % (0-2); EOSINOPHILS % (AUTO) 1.2 % (0-6); HEMATOCRIT 34.8 % (36.0-47.0); HEMOGLOBIN 11.6 g/dL (12.0-15.5); LYMPHOCYTES % (AUTO) 27.1 % (13-45); MEAN CORPUSCULAR HEMOGLOBIN 27.2 pg (27.0-33.4); MEAN CORPUSCULAR HGB CONC 33.4 g/dL (32.0-36.0); MEAN CORPUSCULAR VOLUME 81 fl (80-97); RED BLOOD COUNT 4.28 10^6/uL (3.72-5.28); RED CELL DISTRIBUTION WIDTH 15.4 % (11.5-14.0); SEGMENTED NEUTROPHILS % (AUTO) 59.5 % (42-78); TOTAL CELLS COUNTED % (AUTO) 100 %; WHITE BLOOD COUNT 5.5 10^3/uL (4.0-10.5)
[2019-05-31 09:38] LABS: APPEARANCE,URINE CLOUDY; BILIRUBIN,URINE NEGATIVE (NEGATIVE); COLOR,URINE YELLOW; GLUCOSE, URINE NEGATIVE (NEGATIVE); KETONES,URINE NEGATIVE (NEGATIVE); LEUKOCYTE ESTERASE,URINE MODERATE (NEGATIVE); NITRITE,URINE NEGATIVE (NEGATIVE); PROTEIN,URINE NEGATIVE (NEGATIVE); URINE SPECIFIC GRAVITY 1.019; UROBILINOGEN,URINE NEGATIVE mg/dL (<2.0)
[2019-05-31 09:56] LABS: URINE AMPHETAMINES SCREEN NEGATIVE; URINE BARBITURATES SCREEN NEGATIVE; URINE BENZODIAZEPINES SCREEN NEGATIVE; URINE COCAINE SCREEN NEGATIVE; URINE MARIJUANA (THC) SCREEN NEGATIVE; URINE METHADONE SCREEN NEGATIVE; URINE PHENCYCLIDINE SCREEN NEGATIVE
[2019-05-31 10:38] LABS: PLATELET COUNT 95 10^3/uL (150-450)
[2019-06-04] MEDS ORDERED: RINGERS SOLUTION,LACTATED 1,000 ML IV PRN (05:00)
[2019-06-04] MEDS ORDERED: CEFAZOLIN SODIUM 2 GM in DEXTROSE 5%-WATER 100 ML IV PRN (05:00)
[2019-06-04] MEDS ORDERED: FENTANYL CITRATE INJ/PF 100 MCG/2 ML AMPUL ONE (06:46)
[2019-06-04] MEDS ORDERED: OXYTOCIN 10 UNIT/ML VIAL ONE (06:46)
[2019-06-04] MEDS ORDERED: EPHEDRINE SULFATE INJ 50 MG/1 ML AMPULE ONE (06:47)
[2019-06-04] MEDS ORDERED: ONDANSETRON HCL INJ/PF 4 MG/2 ML SDV ONE (06:47)
[2019-06-04] MEDS ORDERED: MIDAZOLAM 2 MG/2 ML INJ ONE (06:47)
[2019-06-04] MEDS ORDERED: OXYTOCIN/NORMAL SALINE 20 UNIT/1,000 ML RTUINJ ONE (06:47)
[2019-06-04] MEDS: LACTATED RINGERS 1000 ML IV PRN ×2 (07:02→16:00)
[2019-06-04] MEDS ORDERED: MEPERIDINE HCL/PF INJ 25 MG/1 ML DISP.SYRIN IV PRN (08:29)
[2019-06-04] MEDS ORDERED: FENTANYL CITRATE INJ/PF 100 MCG/2 ML AMPUL IV PRN ×3 (08:29)
[2019-06-04] MEDS ORDERED: DIPHENHYDRAMINE HCL 50 MG/ML VIAL IV PRN (08:29)
[2019-06-04] MEDS ORDERED: PROMETHAZINE HCL INJ 25 MG/1 ML VIAL IV PRN ×2 (08:29→08:52)
[2019-06-04] MEDS ORDERED: OXYCODONE-ACETAMINOPHEN 5-325 MG TABLET PO PRN ×2 (08:29→08:52)
[2019-06-04] MEDS ORDERED: ACETAMINOPHEN 1,000 MG/100 ML RTUPB IV PRN (08:52)
[2019-06-04] MEDS ORDERED: SIMETHICONE 80 MG TAB.CHEW PO PRN (08:52)
[2019-06-04] MEDS ORDERED: DIPH/PERTUSS(ACELL)/TETANUS VAC/PF 0.5 ML SYR (>=10YO) IM PRN (08:52)
[2019-06-04] MEDS ORDERED: MEASLES,MUMPS&RUBELLA VACC/PF 0.5 ML VIAL SUBCUT PRN (08:52)
[2019-06-04] MEDS ORDERED: OXYTOCIN/NORMAL SALINE 20 UNIT/1,000 ML RTUINJ IV PRN (08:52)
--- NOTE | 2019-06-04 08:52 | Operative Report ---
Operative Report DATE OF SURGERY: 06/04/19 PREOPERATIVE DIAGNOSIS: IUP @ 37 wks, di di twin gestation, breech presentation of fetus a and b POSTOPERATIVE DIAGNOSIS: same OPERATION: Primary low transverse hysterotomy section SURGEON: MADHU HANCOCK ANESTHESIA: Spinal TISSUE REMOVED OR ALTERED: Placentas with umbilical clamp on placenta B COMPLICATIONS: None ESTIMATED BLOOD LOSS: 800 cc INTRAOPERATIVE FINDINGS: Infant A female in angie breech presentation Apgars of 8 and 9. B female in [place] breech presentation with Apgars of 8 and 9 PROCEDURE: PROCEDURE IN DETAIL: The patient was taken to the operating room, prepared and draped in a normal sterile fashion in a supine position with a leftward tilt. A transverse skin incision was made with a scalpel and carried through to the underlying layer of fascia with the same scalpel. The fascia was excised in the midline and extended laterally with Wanda. The fascia was then dissected from the rectus muscle sharply with Wanda and the rectus muscle was divided and the peritoneal cavity was entered sharply with the same Metzenbaum. With good visualization of the bladder and the uterus the bladder blade was inserted. The hysterotomy was nicked with a scalpel and extended laterally with surgeon finger fraction. The A was then delivered atraumatically using normal breech extraction maneuvers .the nose and mouth were suctioned with a suction bulb, the cord was clamped and cut and handed off to awaiting pediatricians. Cord blood was collected. Amniotomy was then performed on infant B and the feet were located and grasped and the infant was removed using normal breech extraction maneuvers. Cord blood was collected . the placentas were removed manually. The uterus was exteriorized and cleared of clots and debris. The hysterotomy was closed with 0 Monocryl in a running, locked fashion. A second layer of the same suture was used to imbricate to ensure hemostasis. The uterus was returned to the abdomen and peritoneal cavity was cleared of clots and debris. The rectus muscle and peritoneum were repaired with mattress stitch of 2-0 Chromic. The fascia was closed with 0-Vicryl. The subcutaneous layer was closed with plain catgut and the skin was closed with 4-0 Vicryl. The patient tolerated the procedure well. Sponge, lap, and needle counts correct x2 and the patient was taken to recovery in stable condition.
[2019-06-04] MEDS ORDERED: MORPHINE SULFATE 10 MG/ML INJ ONE (10:15)
[2019-06-04] MEDS ORDERED: ACETAMINOPHEN 1,000 MG/100 ML RTUPB IV ONE (10:15)
[2019-06-04] MEDS: MORPHINE SULFATE 10 MG/ML INJ IV PRN ×4 (10:19→13:40)
[2019-06-04] MEDS: OXYCODONE-ACETAMINOPHEN 5-325 MG TABLET PO PRN ×3 (11:44→21:05)
[2019-06-04] MEDS: DOCUSATE SODIUM 100 MG CAPSULE PO SCH ×2 (11:45→17:26)
[2019-06-04] MEDS: PRENATAL VITAMIN W DHA CAPSULE PO SCH (11:46)
[2019-06-04] MEDS: KETOROLAC TROMETHAMINE INJ/PF 30 MG/1 ML SDV IV SCH ×2 (13:40→21:05)
[2019-06-05] MEDS: OXYCODONE-ACETAMINOPHEN 5-325 MG TABLET PO PRN ×4 (01:07→22:07)
[2019-06-05] MEDS: KETOROLAC TROMETHAMINE INJ/PF 30 MG/1 ML SDV IV SCH ×2 (05:22→14:07)
[2019-06-05 07:40] LABS: HEMOGLOBIN 10.4 g/dL (12.0-15.5); MEAN CORPUSCULAR HEMOGLOBIN 27.5 pg (27.0-33.4); MEAN CORPUSCULAR HGB CONC 33.7 g/dL (32.0-36.0); MEAN CORPUSCULAR VOLUME 82 fl (80-97); RED CELL DISTRIBUTION WIDTH 15.6 % (11.5-14.0); WHITE BLOOD COUNT 9.2 10^3/uL (4.0-10.5)
[2019-06-05 08:09] LABS: PLATELET COUNT 90 10^3/uL (150-450)
[2019-06-05] MEDS: PRENATAL VITAMIN W DHA CAPSULE PO SCH (10:12)
[2019-06-05] MEDS: DOCUSATE SODIUM 100 MG CAPSULE PO SCH ×2 (10:12→18:14)
--- NOTE | 2019-06-05 11:44 | PDOC PROGRESS REPORT ---
Subjective-OB Progress Note for:: 06/05/19 Subjective: Pt doing well, no concerns. SHe has been out of bed, voiding and passing gas, reg diet. Pain well controlled. Physical Exam (OB) Vital Signs: Temp Pulse Resp BP Pulse Ox 97.5 F 87 18 129/57 H 100 06/05/19 11:08 06/05/19 11:08 06/05/19 11:08 06/05/19 11:08 06/05/19 11:08 Intake & Output 06/04/19 06/05/19 06/06/19 06:59 06:59 06:59 Intake Total 3197 Output Total 1200 350 Balance 1996 Weight 121.8 kg - PIH/Pre-Eclampsia DTR's: 1 + Clonus: Negative Headache: Present Epigastric Pain: No Visual Changes: No - Dressing Removed: No Incision: Dressing Closure Type: OPSITE - Lochia Lochia Amount: Small 10-25 ml Lochia Color: Rubra/Red - Abdomen Description: Tender, Soft Hernia Present: No Fundal Description: Firm Fundal Height: u/u - u/2 Objective-Diagnostic Laboratory: 06/05/19 07:03 06/05/19 07:03 WBC 9.2 RBC 3.80 Hgb 10.4 L Hct 31.0 L MCV 82 MCH 27.5 MCHC 33.7 RDW 15.6 H Plt Count 90 L Assessment and Plan(PN) - Assessment and Plan (1) Delivery of twins, both live Is this a current diagnosis for this admission?: Yes (2) S/P primary low transverse Is this a current diagnosis for this admission?: Yes (3) Thrombocytopenia affecting Is this a current diagnosis for this admission?: Yes - Time Spent with Patient Time with patient: Less than 15 minutes Medications reviewed and adjusted accordingly: Yes - Disposition Anticipated Discharge: Home Within: within 24 hours
[2019-06-06] MEDS: ACETAMINOPHEN 325 MG TABLET PO PRN ×2 (06:14→09:54)
[2019-06-06] MEDS: PRENATAL VITAMIN W DHA CAPSULE PO SCH (09:52)
[2019-06-06] MEDS: DOCUSATE SODIUM 100 MG CAPSULE PO SCH (09:52)
--- NOTE | 2019-06-06 10:00 | PDOC DISCHARGE SUMMARY ---
Impression - Admit/DC Date/PCP Admission Date/Primary Care Provider: 06/04/19 04:35 MADHU HANCOCK MD Discharge Date: 06/06/19 - Discharge Diagnosis (1) Delivery of twins, both live Is this a current diagnosis for this admission?: Yes (2) S/P primary low transverse Is this a current diagnosis for this admission?: Yes (3) Thrombocytopenia affecting Is this a current diagnosis for this admission?: Yes - Additional Information Resuscitation Status: Full Code Discharge Diet: Regular Discharge Activity: Balance Activity w/Rest, Pelvic Rest Referrals: MADHU HANCOCK MD [Primary Care Provider] - Prescriptions: Oxycodone HCl/Acetaminophen [Percocet 5-325 mg Tablet] 1 tab PO Q4HP PRN #30 tablet PRN Reason: For Pain Scale 3-5 Ibuprofen [Motrin 800 mg Tablet] 800 mg PO Q8HP PRN #60 tablet PRN Reason: For Pain Scale 1-3 Home Medications: Vit/Dha [ Multi + Dha Capsule] 1 cap PO DAILY #90 capsule 04/29/18 Ibuprofen [Motrin 800 mg Tablet] 800 mg PO Q8HP PRN #60 tablet 06/06/19 Oxycodone HCl/Acetaminophen [Percocet 5-325 mg Tablet] 1 tab PO Q4HP PRN #30 tablet 06/06/19 Results Laboratory Results: WBC 9.2 10^3/uL (4.0-10.5) 06/05/19 07:03 RBC 3.80 10^6/uL (3.72-5.28) 06/05/19 07:03 Hgb 10.4 g/dL (12.0-15.5) L 06/05/19 07:03 Hct 31.0 % (36.0-47.0) L 06/05/19 07:03 MCV 82 fl (80-97) 06/05/19 07:03 MCH 27.5 pg (27.0-33.4) 06/05/19 07:03 MCHC 33.7 g/dL (32.0-36.0) 06/05/19 07:03 RDW 15.6 % (11.5-14.0) H 06/05/19 07:03 Plt Count 90 10^3/uL (150-450) L 06/05/19 07:03 Lymph % (Auto) 27.1 % (13-45) 05/31/19 08:40 [place] % (Auto) 12.0 % (3-13) 05/31/19 08:40 Eos % (Auto) 1.2 % (0-6) 05/31/19 08:40 Baso % (Auto) 0.2 % (0-2) 05/31/19 08:40 Absolute Neuts (auto) 3.3 10^3/uL (1.7-8.2) 05/31/19 08:40 Absolute Lymphs (auto) 1.5 10^3/uL (0.5-4.7) 05/31/19 08:40 Absolute Monos (auto) 0.7 10^3/uL (0.1-1.4) 05/31/19 08:40 Absolute Eos (auto) 0.1 10^3/uL (0.0-0.6) 05/31/19 08:40 Absolute Basos (auto) 0.0 10^3/uL (0.0-0.2) 05/31/19 08:40 Seg Neutrophils % 59.5 % (42-78) 05/31/19 08:40 Urine Color YELLOW 05/31/19 08:40 Urine Appearance CLOUDY 05/31/19 08:40 Urine pH 6.0 (5.0-9.0) 05/31/19 08:40 Ur Specific [place] 1.019 05/31/19 08:40 Urine Protein NEGATIVE mg/dL (NEGATIVE) 05/31/19 08:40 Urine Glucose (UA) NEGATIVE mg/dL (NEGATIVE) 05/31/19 08:40 Urine Ketones NEGATIVE mg/dL (NEGATIVE) 05/31/19 08:40 Urine Blood NEGATIVE (NEGATIVE) 05/31/19 08:40 Urine Nitrite NEGATIVE (NEGATIVE) 05/31/19 08:40 Urine Bilirubin NEGATIVE (NEGATIVE) 05/31/19 08:40 Urine Urobilinogen NEGATIVE mg/dL (<2.0) 05/31/19 08:40 Ur Leukocyte Esterase MODERATE (NEGATIVE) H 05/31/19 08:40 Urine WBC (Auto) 10 /HPF 05/31/19 08:40 Urine RBC (Auto) 1 /HPF 05/31/19 08:40 Urine Bacteria (Auto) 1+ /HPF 05/31/19 08:40 Squamous Epi Cells Auto 52 /HPF 05/31/19 08:40 Urine Mucus (Auto) FEW /LPF 05/31/19 08:40 Urine Ascorbic Acid NEGATIVE (NEGATIVE) 05/31/19 08:40 Urine Opiates Screen NEGATIVE 05/31/19 08:40 Urine Methadone Screen NEGATIVE 05/31/19 08:40 Ur Barbiturates Screen NEGATIVE 05/31/19 08:40 Ur Phencyclidine Scrn NEGATIVE 05/31/19 08:40 Ur Amphetamines Screen NEGATIVE 05/31/19 08:40 U Benzodiazepines Scrn NEGATIVE 05/31/19 08:40 Urine Cocaine Screen NEGATIVE 05/31/19 08:40 U Marijuana (THC) Screen NEGATIVE 05/31/19 08:40 Blood Type O POSITIVE 06/03/19 10:36 Antibody Screen NEGATIVE 06/03/19 10:36 Plan Plan of Treatment: f/u at [facility] as scheduled Time Spent: Less than 30 Minutes
[2019-06-06 15:19] VITALS: BP 116/65
[2019-06-09] MEDS ORDERED: IBUPROFEN 800 MG TABLET PO SCH (12:00)
== END 2019-06-06 17:00 | disposition home or self-care (01) | DRG 787 ==
LOC: 2S 04:35
PROVIDERS: ADMIT Obstetrics & Gynecology; ATTEND Obstetrics & Gynecology
PROC: 10D00Z1 Extraction of Products of Conception, Low, Open Approach (ICD-10-PCS; principal; 2019-06-04 07:45)
DX: O31.8X31 Other complications specific to multiple gestation, third trimester, fetus 1 (principal); O99.12 Other diseases of the blood and blood-forming organs and certain disorders involving the immune mechanism complicating childbirth; O31.8X32 Other complications specific to multiple gestation, third trimester, fetus 2; O32.8XX2 Maternal care for other malpresentation of fetus, fetus 2; O32.8XX1 Maternal care for other malpresentation of fetus, fetus 1; O30.043 Twin pregnancy, dichorionic/diamniotic, third trimester; Z3A.37 37 weeks gestation of pregnancy; Z37.2 Twins, both liveborn; D69.6 Thrombocytopenia, unspecified
CPT/HCPCS: 1961; 36415; 59025; 80307; 81001; 85025; 85027; 86850; 86900; 86901; 88307; 94760; 94799; J0131; J0690; J1885; J2250; J2270; J2405; J2550; J2590; J3010; J3490; J7060; J7120

== ENCOUNTER 2019-10-03 18:25 | Emergency (ER) | payer MEDICAID ==
[2019-10-03 19:04] VITALS: BP 134/80
[2019-10-03] MEDS ORDERED: IBUPROFEN 800 MG TABLET PO ONE (20:19)
--- NOTE | 2019-10-03 20:19 | ER Document Report ---
ED Extremity Problem, Lower - General Chief Complaint: Leg Pain Stated Complaint: BACK PAIN Time Seen by Provider: 10/03/19 20:09 Primary Care Provider: MADHU HANCOCK MD [Primary Care Provider] - Follow up as needed Mode of Arrival: Ambulatory Information source: Patient Notes: 29-year-old female presents to ED for complaint of right shoulder pain. She states she has had this pain in the past. She states this time is been for about 2 weeks. She states last week it got much worse. 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 She also has a 1-year-old. She states past medical history is a . She states she does not smoke drink or use any illicit drugs. Will give ibuprofen now and write prescription for some Flexeril. She has full range of motion to the shoulder but it is painful. She states she has not had any injuries but she is picking up her twins. She has been instructed to follow-up with her primary care and get a referral to orthopedics. I have given her the name and number of an orthopedic but she will need to get the referral from her primary care. REVIEW OF SYSTEMS: CONSTITUTIONAL : Denies fever, chills, or sweats. Denies recent illness. EENT: Denies eye, ear, throat, or mouth pain or symptoms. Denies nasal or sinus congestion. CARDIOVASCULAR: Denies chest pain. RESPIRATORY: Denies cough, cold, or chest congestion. Denies shortness of breath, difficulty breathing, or wheezing. GASTROINTESTINAL: Denies abdominal pain. Denies nausea, vomiting, or diarrhea. Denies constipation. Last BM: GENITOURINARY: Denies difficulty urinating, painful urination, burning, frequency, or blood in urine. FEMALE GENITOURINARY: Denies vaginal bleeding, abnormal or irregular periods. LMP: MUSCULOSKELETAL: Right shoulder pain pain with range of motion SKIN: Denies rash or skin lesions. HEMATOLOGIC : Denies easy bruising or bleeding. LYMPHATIC: Denies swollen, enlarged glands. NEUROLOGICAL: Denies altered mental status or loss of consciousness. Denies headache. Denies weakness or paralysis or loss of use of either side. Denies problems with gait or speech. Denies sensory or motor loss. PSYCHIATRIC: Denies anxiety or stress or depression. ALL OTHER SYSTEMS REVIEWED AND NEGATIVE. VITAL SIGNS: Within normal limits. GENERAL: No acute distress, non-toxic appearance. HEAD: Normal with no signs of head trauma. EYES: PERRLA, EOMI, conjunctiva normal, no discharge. EARS: Hearing grossly intact. NOSE: Normal. THROAT: Oropharynx is normal. NECK: Normal range of motion, no tenderness, supple, no lymphadenopathy, No adenopathy, no JVD. CHEST: Clear breath sounds bilaterally. No wheezes, rales, or rhonchi. CARDIAC: Regular rate and rhythm. S1 and S2, without murmurs, gallops, or rubs. VASCULAR: No Edema. Peripheral pulses normal and equal in all extremities. ABDOMEN: Normal and soft with no tenderness, no masses or pulsatile masses. GASTROINTESTINAL: Bowel sounds normal GENITOURINARY: Normal, No tenderness LYMPATHTIC: No lymphadenopathy noted. MUSCULOSKELETAL: Tenderness to palpation and range of motion to the right should er. She has tenderness to the upper trapezius right muscle. NEUROLOGICAL: Alert and oriented x 3. No focal sensory or strength deficits. Speech normal. Follows commands appropriately. PSYCHIATRIC: Normal Affect, judgement and mood. SKIN: Normal appearance with no rashes or lesions. TRAVEL OUTSIDE OF THE [place] IN LAST 30 DAYS: No - HPI Patient complains to provider of: Pain - Related Data Allergies/Adverse Reactions: pineapple [Pineapple] Allergy (Severe, Verified 05/31/19 08:52) hives,passing out Past Medical History - Social History Smoking Status: Never Smoker Chew tobacco use (# tins/day): No Frequency of alcohol use: None Drug Abuse: None Family History: Reviewed & Not Pertinent Patient has homicidal ideation: No Pulmonary Medical History: Reports: Hx Bronchitis Neurological Medical History: Reports: Hx Migraine Renal/ Medical History: Reports: Hx Ovarian Cysts. Denies: Hx Peritoneal Dialysis Psychiatric Medical History: Reports: Hx Depression - Immunizations Hx Diphtheria, Pertussis, Tetanus Vaccination: Yes Physical Exam - Vital signs Vitals: Temp Pulse Resp BP Pulse Ox 98.0 F 81 20 134/80 H 100 10/03/19 19:02 10/03/19 19:02 10/03/19 19:02 10/03/19 19:02 10/03/19 19:02 Course - Vital Signs Vital signs: Temp Pulse Resp BP Pulse Ox 98.0 F 81 20 134/80 H 100 10/03/19 19:02 10/03/19 19:02 10/03/19 19:02 10/03/19 19:02 10/03/19 19:02 Discharge - Discharge Referrals: MADHU HANCOCK MD [Primary Care Provider] - Follow up as needed
--- NOTE | 2019-10-03 20:25 | ER Document Report ---
ED Extremity Problem, Upper - General Chief Complaint: Shoulder Pain Stated Complaint: BACK PAIN Time Seen by Provider: 10/03/19 20:09 Primary Care Provider: MADHU HANCOCK MD [Primary Care Provider] - Follow up as needed Mode of Arrival: Ambulatory Notes: 29-year-old female presents to ED for complaint of right shoulder pain. She states she has had this pain in the past. She states this time is been for about 2 weeks. She states last week it got much worse. 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 She also has a 1-year-old. She states past medical history is a . She states she does not smoke drink or use any illicit drugs. Will give ibuprofen now and write prescription for some Flexeril. She has full range of motion to the shoulder but it is painful. She states she has not had any injuries but she is picking up her twins. She has been instructed to follow-up with her primary care and get a referral to orthopedics. I have given her the name and number of an orthopedic but she will need to get the referral from her primary care. REVIEW OF SYSTEMS: CONSTITUTIONAL : Denies fever, chills, or sweats. Denies recent illness. EENT: Denies eye, ear, throat, or mouth pain or symptoms. Denies nasal or sinus congestion. CARDIOVASCULAR: Denies chest pain. RESPIRATORY: Denies cough, cold, or chest congestion. Denies shortness of breath, difficulty breathing, or wheezing. GASTROINTESTINAL: Denies abdominal pain. Denies nausea, vomiting, or diarrhea. Denies constipation. Last BM: GENITOURINARY: Denies difficulty urinating, painful urination, burning, frequency, or blood in urine. FEMALE GENITOURINARY: Denies vaginal bleeding, abnormal or irregular periods. LMP: MUSCULOSKELETAL: Left shoulder pain pain with range of motion SKIN: Denies rash or skin lesions. HEMATOLOGIC : Denies easy bruising or bleeding. LYMPHATIC: Denies swollen, enlarged glands. NEUROLOGICAL: Denies altered mental status or loss of consciousness. Denies headache. Denies weakness or paralysis or loss of use of either side. Denies problems with gait or speech. Denies sensory or motor loss. PSYCHIATRIC: Denies anxiety or stress or depression. ALL OTHER SYSTEMS REVIEWED AND NEGATIVE. VITAL SIGNS: Within normal limits. GENERAL: No acute distress, non-toxic appearance. HEAD: Normal with no signs of head trauma. EYES: PERRLA, EOMI, conjunctiva normal, no discharge. EARS: Hearing grossly intact. NOSE: Normal. THROAT: Oropharynx is normal. NECK: Normal range of motion, no tenderness, supple, no lymphadenopathy, No adenopathy, no JVD. CHEST: Clear breath sounds bilaterally. No wheezes, rales, or rhonchi. CARDIAC: Regular rate and rhythm. S1 and S2, without murmurs, gallops, or r ubs. VASCULAR: No Edema. Peripheral pulses normal and equal in all extremities. ABDOMEN: Normal and soft with no tenderness, no masses or pulsatile masses. GASTROINTESTINAL: Bowel sounds normal GENITOURINARY: Normal, No tenderness LYMPATHTIC: No lymphadenopathy noted. MUSCULOSKELETAL: Tenderness to palpation and range of motion to the left shoulder. She has tenderness to the upper trapezius left muscle. NEUROLOGICAL: Alert and oriented x 3. No focal sensory or strength deficits. Speech normal. Follows commands appropriately. PSYCHIATRIC: Normal Affect, judgement and mood. SKIN: Normal appearance with no rashes or lesions. TRAVEL OUTSIDE OF THE [place] IN LAST 30 DAYS: No - Related Data Allergies/Adverse Reactions: pineapple [Pineapple] Allergy (Severe, Verified 05/31/19 08:52) hives,passing out Past Medical History - General Information source: Patient - Social History Smoking Status: Never Smoker Chew tobacco use (# tins/day): No Frequency of alcohol use: None Drug Abuse: None Lives with: Family Family History: Reviewed & Not Pertinent Patient has homicidal ideation: No - Past Medical History Cardiac Medical History: Reports: None Pulmonary Medical History: Reports: Hx Bronchitis EENT Medical History: Reports: None Neurological Medical History: Reports: Hx Migraine Endocrine Medical History: Reports: None Renal/ Medical History: Reports: Hx Ovarian Cysts Malignancy Medical History: Reports: None GI Medical History: Reports: None Musculoskeletal Medical History: Reports Hx Musculoskeletal Trauma Skin Medical History: Reports None Psychiatric Medical History: Reports: None Traumatic Medical History: Reports: None Infectious Medical History: Reports: None Past Surgical History: Reports: Hx Section - Immunizations Hx Diphtheria, Pertussis, Tetanus Vaccination: Yes - 2019 Physical Exam - Vital signs Vitals: Temp Pulse Resp BP Pulse Ox 98.0 F 81 20 134/80 H 100 10/03/19 19:02 10/03/19 19:02 10/03/19 19:02 10/03/19 19:02 10/03/19 19:02 Course - Re-evaluation Re-evalutation: 10/03/19 22:22 Patient was treated with a sling per her request for her chronic shoulder pain. She was also given instructions for shoulder exercises and to follow-up with orthopedics. Patient was able to verbalize understanding and agreement with treatment plan and patient was discharged home. - Vital Signs Vital signs: Temp Pulse Resp BP Pulse Ox 98.0 F 81 20 134/80 H 100 10/03/19 19:02 10/03/19 19:02 10/03/19 19:02 10/03/19 19:02 10/03/19 19:02 Procedures - Immobilization Left Shoulder Time completed: 20:25 Pre-Proc Neuro Vasc Exam: Normal Immobilizer type: Sling Performed by: PCT Post-Proc Neuro Vasc Exam: Normal Alignment checked and good: Yes Discharge - Discharge Clinical Impression: Left shoulder pain Qualifiers: Chronicity: chronic Qualified Code(s): M25.512 - Pain in left shoulder Condition: Stable Disposition: HOME, SELF-CARE Additional Instructions: Shoulder Injury You have injured your shoulder. This usually results from stretching or tearing of the tendons during trauma. Time and protection are required in order to heal properly. Many injuries are quite disabling, and should be taken seriously. Initial treatment includes cold packs and a sling to rest the shoulder. The physician has assessed the seriousness of your injury, and has outlined a treatment plan. Understand that this treatment may change, depending on how you progress. If a re-examination was recommended, it is important that you follow up as instructed. Some shoulder injuries (such as partial tear of the rotator cuff) are only suspected after you've failed to improve. Call us if there's severe pain, numbness, or loss of function. Exercise Program for the Shoulder Since the shoulder moves in so many directions, the joint attachment is weak. Muscles provide most of the stability to the shoulder. You must exercise your shoulder to prevent painful instability or stiffening. PASSIVE - These may be begun within a few days of the injury. While standing, lean forward, allowing the arm to hang down towards the floor. Move the arm in small circles while slowly twisting your chest towards and away from the hanging arm. Do this for one minute. ACTIVE - These may be performed when the doctor gives permission. Begin with the arms at the sides. Raise the arms forward (shoulder's width apart) until they reach shoulder level. Then slowly swing both arms back until they a re aiming straight out away from each other. Then bring them forward again, and finally, lower them to your sides. Repeat 20 to 30 times. As you improve, put weights in your hands for the exercise. Start with one pound, and work up to 10 pounds. Never use more than is comfortable. Athletes may work up to 30 pounds. I am given you a sling to wear only as necessary. Do not wear it all the time. You do need to exercise the shoulder as I have described. Please follow-up with your primary doctor in the next couple days to get a referral to orthopedics if it continues to hurt. Please do not take muscle relaxers when you are home with the twins by yourself. Ibuprofen Ibuprofen is an excellent, safe drug for pain control. In addition, it has potent antiinflammatory effects which are beneficial, especially in the treatment of injuries, arthritis, or tendonitis. It's best to take ibuprofen with food. Persons with ulcer disease or allergy to aspirin should notify their physician of this before taking ibuprofen. Take the medication exactly as prescribed. Don't take additional doses unless instructed to do so by your doctor. If you develop wheezing, shortness of breath, hives, faintness, stomach pain, vomiting, or dark black stools, return for re-evaluation at once. Ice Packs Apply ice packs frequently against the painful area. Many different schedules are recommended, such as "20 minutes on, 20 minutes off" or "one hour ice, two hours rest." If you need to work, you may need to go longer between ice treatments. You should plan to have the area ice packed AT LEAST one fourth of the time. The ice should be applied over the wrap, tape, or splint, or over a layer of cloth -- not directly against the skin. Some ice bags have a built-in cloth and can be put directly on the skin. Warm Packs After approximately two days, apply gentle heat (such as a heating pad or hot water bottle) for about 20 to 30 minutes about every two hours -- at least four times daily. Warmth and elevation will help you make a more rapid recovery, and will ease the pain considerably. Do not use HOT heat, and never apply heat for longer than 30 minutes. The continuous heat can invisibly damage skin and muscles -- even when no burn is seen on the surface. Damaged muscles can make you MORE sore. FOLLOW-UP CARE: If you have been referred to a physician for follow-up care, call the physicians office for an appointment as you were instructed or within the next two days. If you experience worsening or a significant change in your symptoms, notify the physician immediately or return to the Emergency Department at any time for re-evaluation. Prescriptions: Cyclobenzaprine HCl [Flexeril 10 mg Tablet] 10 mg PO TIDP PRN #15 tab PRN Reason: For Pain Scale 3-5 Forms: Elevated Blood Pressure Referrals: MADHU HANCOCK MD [Primary Care Provider] - Follow up as needed
== END 2019-10-03 20:30 | disposition home or self-care (01) ==
LOC: ER 18:25
DX: M25.511 Pain in right shoulder (principal)
CPT/HCPCS: 99282; J3490

== ENCOUNTER 2020-01-09 12:35 | Emergency (ER) | payer MEDICAID ==
[2020-01-09 13:05] VITALS: BP 131/67
--- NOTE | 2020-01-09 13:35 | ER Document Report ---
ED Medical Screen (RME) - General Chief Complaint: Chest Pain Stated Complaint: CHEST PAIN Time Seen by Provider: 01/09/20 13:14 Primary Care Provider: MADHU HANCOCK MD [Primary Care Provider] - Follow up as needed TRAVEL OUTSIDE OF THE [place] IN LAST 30 DAYS: No - HPI Notes: Patient is a 29 y/o female with no medical hx who presents with chest pain, shortness of breath and myalgias for the past three days. She states her chest pain is substernal and is present when she takes a deep breath. She reports nasal congestion, but denies fever, cough, sore throat, abdominal pain and vomiting. - Related Data Allergies/Adverse Reactions: pineapple [Pineapple] Allergy (Severe, Verified 01/09/20 13:10) hives,passing out Home Medications: migraine medication as needed. Past Medical History - Social History Chew tobacco use (# tins/day): No Frequency of alcohol use: None Drug Abuse: None Family history: None Pulmonary Medical History: Reports: Hx Bronchitis Neurological Medical History: Reports: Hx Migraine Renal/ Medical History: Reports: Hx Ovarian Cysts. Denies: Hx Peritoneal Dialysis Musculoskeltal Medical History: Reports Hx Musculoskeletal Trauma Psychiatric Medical History: Reports: Hx Depression Past Surgical History: Reports: Hx Section - Immunizations Hx Diphtheria, Pertussis, Tetanus Vaccination: Yes - 2019 Physical Exam - Vital signs Vitals: Temp Pulse Resp BP Pulse Ox 98.6 F 72 15 131/67 H 100 01/09/20 12:57 01/09/20 12:57 01/09/20 12:57 01/09/20 12:57 01/09/20 12:57 - Respiratory Respiratory status: No respiratory distress Breath sounds: Normal - Cardiovascular Rhythm: Regular Heart sounds: Normal auscultation Pulses: Normal: Radial Course - Re-evaluation Re-evalutation: I have greeted and performed a rapid initial assessment of this patient. A comprehensive ED assessment and evaluation of the patient, analysis of test results and completion of medical decision making process will be conducted by an additional ED providers. - Vital Signs Vital signs: Temp Pulse Resp BP Pulse Ox 98.6 F 72 15 131/67 H 100 01/09/20 12:57 01/09/20 12:57 01/09/20 12:57 01/09/20 12:57 01/09/20 12:57 Doctor's Discharge - Discharge Referrals: MADHU HANCOCK MD [Primary Care Provider] - Follow up as needed
--- NOTE | 2020-01-10 00:39 | EKG REPORT ---
SEVERITY:- NORMAL ECG - SINUS RHYTHM : Confirmed by: Michaela Zacarias MD 10-Jan-2020 00:38:44
== END 2020-01-09 15:20 | disposition left against medical advice (07) ==
LOC: ER 12:35
DX: R07.2 Precordial pain (principal); R07.1 Chest pain on breathing; R06.02 Shortness of breath; M79.10 Myalgia, unspecified site; R09.81 Nasal congestion; G43.909 Migraine, unspecified, not intractable, without status migrainosus; Z91.018 Allergy to other foods; Z53.20 Procedure and treatment not carried out because of patient's decision for unspecified reasons
CPT/HCPCS: 93005; 93010; 99281